=== PATIENT | male | born 1935 | race Caucasian/White ===

== ENCOUNTER → 2017-03-11 | Outpatient (CLI) | payer MEDICARE, OTHER | END | disposition home or self-care (01) | LOC: GMAB 10:28 | PROVIDERS: ATTEND Family Medicine | DX: R97.20 Elevated prostate specific antigen [PSA] (principal); Z85.038 Personal history of other malignant neoplasm of large intestine; Z12.5 Encounter for screening for malignant neoplasm of prostate; I10 Essential (primary) hypertension ==

== ENCOUNTER 2017-04-24 11:53 | Emergency (ER) | payer MEDICARE, OTHER ==
[2017-04-24] MEDS ORDERED: SODIUM CHLORIDE 0.9% 1000ML 1,000 ML IVS ONE (12:40)
--- NOTE | 2017-04-24 12:44 | RAD ---
EXAM DESCRIPTION: Chest,1 View CLINICAL HISTORY: 82-year-old, male, shortness of breath. COMPARISON: Chest radiograph dated May 30, 2013. IMPRESSION: Single upright portable frontal view of the chest. Cardiac silhouette and pulmonary vascularity are within normal limits. Subtle linear opacities within the bilateral lower lung zones are likely secondary to subsegmental atelectasis. Underlying infiltrates cannot be entirely excluded, although felt less likely. Please correlate clinically. No pleural effusion. No pneumothorax. No acute osseous abnormality. Electronically signed by: Juaquin Prado MD 04/24/2017 12:43 PM CDT
--- NOTE | 2017-04-24 13:42 | ED.PDOC ---
History of Present Illness - General Chief Complaint: Cardiovascular Problem Stated Complaint: SOB, diaphoresis, weakness Time Seen by Provider: 04/24/17 12:25 Source: patient Exam Limitations: no limitations - History of Present Illness Initial Comments: Isaak Gutierres 82 y/o male stated that he had right knee replacement 2 weeks ago and had been doing home health Physical Therapy but on getting up this morning walking 4 steps with his walker got so tired and developed chest pressure had cold sweats and was lightheaded.DENIES CHEST PAIN SYMPTOMS. Timing/Duration: 4-6 hours Severity: moderate Improving Factors: rest Worsening Factors: movement Associated Symptoms: other - see hpi Allergies/Adverse Reactions: Allergies NO KNOWN ALLERGY Allergy (Verified 04/24/17 12:13) Home Medications: Ambulatory Orders B-Complex W/ Folic Acid [B Complex] 1 tab PO DAILY 04/24/17 Enalapril Maleate 5 mg PO DAILY 04/24/17 Endur-Acin 500 mg PO BID 04/24/17 Metoprolol Tartrate 12.5 mg PO BID 04/24/17 Multiple Vitamins W/ Minerals [Multivitamin Men] 1 tab PO DAILY 04/24/17 Phytosterol 900 mg PO DAILY 04/24/17 Tamsulosin [Flomax] 0.4 mg PO DAILY 04/24/17 Review of Systems - Review of Systems Constitutional: States: no symptoms reported EENTM: States: no symptoms reported Respiratory: States: no symptoms reported Cardiology: States: see HPI Gastrointestinal/Abdominal: States: no symptoms reported Genitourinary: States: no symptoms reported Musculoskeletal: States: see HPI Skin: States: no symptoms reported Past Medical History (General) - Patient Medical History Hx Stroke: No Hx Cardiac Disorders: Yes - [place] 1998 Hx Congestive Heart Failure: No Hx Diabetes: No Hx Cancer: Yes - Colon Surgical History: cholecystectomy, colectomy, other - recent knee surgery,right wrist,nose - Vaccination History Hx Influenza Vaccination: Yes - 2016 Hx Pneumococcal Vaccination: - unknown - Social History Hx Tobacco Use: Yes - Quit 1986 Hx Physical Abuse: No Hx Emotional Abuse: No Hx Suspected Abuse: No - Activities of Daily Living Grooming Ability: Independent Eating (Feeding) Ability: Independent Toileting Ability: Independent Family Medical History - Family History Father Living Status: Cause of : Colon CA Hx Family Diabetes: Yes - mom Hx Family Cancer: Yes - Colon Physical Exam - Physical Exam General Appearance: Alert, No apparent distress Eye Exam: bilateral normal Ears, Nose, Throat: hearing grossly normal, normal ENT inspection Neck: non-tender, full range of motion, supple Respiratory: chest non-tender, lungs clear, normal breath sounds Cardiovascular/Chest: normal peripheral pulses, regular rate, rhythm, no murmur Peripheral Pulses: radial,right: 2+, radial,left: 2+ Gastrointestinal/Abdominal: normal bowel sounds, non tender, soft, no organomegaly Back Exam: no CVA tenderness, no vertebral tenderness Extremity: other - well healed scar right knee with old ecchymosis post op Neurologic: no motor/sensory deficits, alert, normal mood/affect, oriented x 3, other - no pronator drift,speech fluent Skin Exam: normal color, warm/dry Lymphatic: no adenopathy Progress - Progress Progress: 04/24/17 13:46 Vital Signs - 8 hr 04/24/17 04/24/17 04/24/17 11:57 12:23 12:43 Temperature 97.4 F L Pulse Rate [ 68 68 59 L Apical] Respiratory 22 18 20 Rate Blood Pressure 140/51 86/48 83/40 [Left Arm] O2 Sat by Pulse 99 98 99 Oximetry 04/24/17 13:15 Temperature Pulse Rate [ 65 Apical] Respiratory 20 Rate Blood Pressure 93/46 [Left Arm] O2 Sat by Pulse 97 Oximetry - Results/Orders Results/Orders: Laboratory Tests 04/24/17 04/24/17 04/24/17 11:47 11:47 11:47 WBC 11.6 H RBC 2.87 L Hgb 9.5 L Hct 27.9 L MCV 97.5 H MCH 33.1 H MCHC 34.0 RDW 15.0 H Plt Count 367 MPV 8.8 Absolute Neuts (auto) 7.00 H Absolute Lymphs (auto) 3.30 Absolute Monos (auto) 1.20 H Absolute Eos (auto) 0.10 Absolute Basos (auto) 0.10 Neutrophils % 60.5 Lymphocytes % 28.5 Monocytes % 9.9 H Eosinophils % 0.6 L Basophils % 0.5 Normal RBC Morphology PT 12.5 INR 1.110 PTT (SP) 21.6 L D-Dimer, Quantitative 1326 H* pCO2 pO2 HCO3 ABG pH ABG O2 Saturation ABG Base Excess ABG Deoxyhemoglobin Oxyhemoglobin % Carboxyhemoglobin % Methemoglobin % Sat Calc Total Hemoglobin Sodium 131 L Potassium 4.3 Chloride 100 L Carbon Dioxide 19 L Anion Gap 16.3 BUN 39 H Creatinine 1.31 H BUN/Creatinine Ratio 29.8 H Random Glucose 228 H Serum Osmolality 279.3 Calcium 8.4 Magnesium 1.8 Creatine Kinase 24 L CK-MB (CK-2) 2.1 CK-MB (CK-2) % Not Reportable Troponin I 0.02 B-Natriuretic Peptide 30.2 04/24/17 04/24/17 13:05 14:47 WBC RBC Hgb Hct MCV MCH MCHC RDW Plt Count MPV Absolute Neuts (auto) Absolute Lymphs (auto) Absolute Monos (auto) Absolute Eos (auto) Absolute Basos (auto) Neutrophils % Lymphocytes % Monocytes % Eosinophils % Basophils % Normal RBC Morphology PT INR PTT (SP) D-Dimer, Quantitative pCO2 29 L pO2 84 HCO3 18.1 ABG pH 7.410 ABG O2 Saturation 97.8 ABG Base Excess -5.3 ABG Deoxyhemoglobin 2.1 Oxyhemoglobin % 94.9 Carboxyhemoglobin % 1.2 Methemoglobin % Sat 1.7 H Calc Total Hemoglobin 7.7 L Sodium Potassium Chloride Carbon Dioxide Anion Gap BUN Creatinine BUN/Creatinine Ratio Random Glucose Serum Osmolality Calcium Magnesium Creatine Kinase 25 L CK-MB (CK-2) 2.1 CK-MB (CK-2) % Not Reportable Troponin I 0.02 B-Natriuretic Peptide - EKG/XRAY/CT EKG: Sinus Comments: heart rate71 pvc XRAY: chest - atelectasis,copd changes CT Ordered: Yes - CTA-Chest-=no pulmonary embolus Departure - Departure Clinical Impression: Light-headedness, Complaint of debility and malaise, History of knee replacement procedure of right knee, Elevated d-dimer Anemia Qualifiers: Anemia type: other cause Other causes of anemia: acute posthemorrhagic Qualified Code(s): D62 - Acute posthemorrhagic anemia Time of Disposition: 15:59 Disposition: Discharge to Home or Self Care Condition: Fair Departure Forms: ED Discharge - Pt. Copy, Patient Portal Self Enrollment Instructions: Anemia: How Food and Vitamins Can Help, Anemia, DI for Iron Deficiency Anemia-Adult Referrals: Julius Bowling MD [Primary Care Provider] - 1-2 Weeks Home Medications: Ambulatory Orders B-Complex W/ Folic Acid [B Complex] 1 tab PO DAILY 04/24/17 Enalapril Maleate 5 mg PO DAILY 04/24/17 Endur-Acin 500 mg PO BID 04/24/17 Metoprolol Tartrate 12.5 mg PO BID 04/24/17 Multiple Vitamins W/ Minerals [Multivitamin Men] 1 tab PO DAILY 04/24/17 Phytosterol 900 mg PO DAILY 04/24/17 Tamsulosin [Flomax] 0.4 mg PO DAILY 04/24/17 Additional Instructions: RETURN TO EMERGENCY ROOM NEEDED;CONTINUE WITH ALL HOME MEDICATIONS
--- NOTE | 2017-04-24 14:12 | CT ---
EXAM DESCRIPTION: CTA Chest CLINICAL HISTORY: elevated d dimer/recent knee surgery right chest pain, shortness of breath COMPARISON: June 16, 2013 TECHNIQUE: Postcontrast CT images of the chest are obtained using pulmonary embolism imaging protocol. Three-D MIP reconstructed images of the arterial vasculature are obtained. Coronal and sagittal reconstructed images of the also provided. . This exam was performed according to our departmental dose-optimization program, which includes automated exposure control, adjustment of the mA and/or kV according to patient size and/or use of iterative reconstruction technique . FINDINGS: The heart is enlarged. Severe coronary artery calcifications are again seen with mild calcifications of the aortic and mitral valve angles. No filling defects or emboli are seen in the pulmonary arteries. Moderate elongation and tortuosity the thoracic aorta is seen without aneurysmal dilatation. No pathologically enlarged mediastinal, hilar, or axillary lymphadenopathy seen. No pleural or pericardial effusion is seen. Stable 2.2 cm cyst of the left lobe liver. Lungs are hypoaerated. Moderate centrilobular and paraseptal emphysematous changes to the lungs are seen most pronounced in the upper lobes. Calcified pulmonary nodules are seen bilaterally. Crowding of the bronchovascular markings in the lung bases are seen. No focal consolidation is appreciated. Osseous structures show degenerative changes of the spine. IMPRESSION: No radiographic evidence of pulmonary embolism. Exam is limited by poor inspiratory effort and breathing motion artifact degrading evaluation of the mid to distal branches of the pulmonary arteries in the lower lobes. Moderate emphysematous changes to the lungs are seen most pronounced in the upper lobes. Enlarged heart. Severe coronary artery disease. Electronically signed by: Cisco Colmenares MD 04/24/2017 2:10 PM CDT
[2017-04-24 15:49] VITALS: BP 100/54; O2SAT 97
[2017-04-24 17:17] VITALS: TEMP 98.2
== END 2017-04-24 16:05 | disposition home or self-care (01) ==
LOC: ER 11:53
DX: D62 Acute posthemorrhagic anemia (principal); R42 Dizziness and giddiness; R54 Age-related physical debility; Z96.651 Presence of right artificial knee joint; R79.89 Other specified abnormal findings of blood chemistry; I25.2 Old myocardial infarction; Z85.038 Personal history of other malignant neoplasm of large intestine; Z87.891 Personal history of nicotine dependence
CPT/HCPCS: 36415; 36600; 71010; 71275; 80048; 82550; 82553; 82803; 82805; 83880; 84484; 85025; 85379; 85610; 85730; 93005; J7030

== ENCOUNTER 2017-04-26 08:24 | Emergency (ER) | payer MEDICARE, OTHER ==
[2017-04-26] MEDS ORDERED: SODIUM CHLORIDE 0.9% 1000ML 1,000 ML IVS ONE (08:31)
--- NOTE | 2017-04-26 09:03 | ED.PDOC ---
History of Present Illness - General Chief Complaint: Cardiovascular Problem Stated Complaint: Syncope, weakness, dark tarry stools Time Seen by Provider: 04/26/17 08:30 Source: patient, RN notes reviewed, Vital Signs reviewed, EMS Exam Limitations: no limitations - History of Present Illness Initial Comments: Patient presents to ER via EMS after a syncopal episode @ home. He has been feeling weak and dizzy since 04/23/17. He was seen here in ER on 04/24 w/o obvious cause found. He did have knee surgery ~ 2 weeks ago. Yesterday morning he had a black, tarry stool. That has continued. This morning he got up to go to the restroom and passed out. EMS arrived and stood him up and he promptly passed out again. He is concerned he is bleeding internally. His last colonoscopy was earlier this year. He had a polyp removed and was advised to follow up in 3 years. Timing/Duration: getting worse - over past 4 days Severity: severe Improving Factors: rest Worsening Factors: movement Associated Symptoms: diaphoresis, malaise, shortness of breath, syncope, weakness Allergies/Adverse Reactions: Allergies NO KNOWN ALLERGY Allergy (Verified 04/26/17 08:31) Home Medications: Ambulatory Orders B-Complex W/ Folic Acid [B Complex] 1 tab PO DAILY 04/24/17 Enalapril Maleate 5 mg PO DAILY 04/24/17 Endur-Acin 500 mg PO BID 04/24/17 Metoprolol Tartrate 12.5 mg PO BID 04/24/17 Multiple Vitamins W/ Minerals [Multivitamin Men] 1 tab PO DAILY 04/24/17 Phytosterol 900 mg PO DAILY 04/24/17 Tamsulosin [Flomax] 0.4 mg PO DAILY 04/24/17 Review of Systems - Review of Systems Constitutional: States: see HPI, diaphoresis, malaise, weakness EENTM: States: no symptoms reported Respiratory: States: short of breath Cardiology: States: syncope Gastrointestinal/Abdominal: States: see HPI, constipation, other - Dark, tarry stools. Denies: abdominal pain, nausea, vomiting Musculoskeletal: States: no symptoms reported Skin: States: no symptoms reported Neurological: States: no symptoms reported All other Systems: No Change from Baseline Past Medical History (General) - Patient Medical History Hx Stroke: No Hx Cardiac Disorders: Yes - [place] 1998 Hx Congestive Heart Failure: No Hx Diabetes: No Hx Cancer: Yes - Colon Hx MRSA: No Surgical History: cholecystectomy, colectomy, other - Vaccination History Hx Influenza Vaccination: Yes - 2016 Hx Pneumococcal Vaccination: - unknown - Social History Hx Tobacco Use: Yes - Quit 1986 Hx Physical Abuse: No Hx Emotional Abuse: No Hx Suspected Abuse: No Family Medical History - Family History Father Living Status: Cause of : Colon CA Hx Family Diabetes: Yes - mom Hx Family Cancer: Yes - Colon Physical Exam - Physical Exam General Appearance: Alert, Comfortable, Frail, No apparent distress, Lethargic, Ill Appearing, Well Developed, Well Nourished Ears, Nose, Throat: other - Dry & pale mucous membranes Neck: non-tender, full range of motion, supple, normal inspection Respiratory: lungs clear, normal breath sounds, no respiratory distress, no accessory muscle use Cardiovascular/Chest: normal peripheral pulses, regular rate, rhythm, no edema, no gallop, no murmur Peripheral Pulses: radial,right: 2+, radial,left: 2+, dorsalis pedis,right: 2+, dorsalis pedis,left: 2+ Gastrointestinal/Abdominal: non tender, soft, no organomegaly, abnormal bowel sounds - Hyperactive Rectal Exam: normal rectal tone, black stool, heme positive stool Extremity: normal inspection - except bruising on his R leg Neurologic: no motor/sensory deficits, alert, normal mood/affect, oriented x 3 Skin Exam: pallor Comments: Vital Signs 04/26/17 08:31 Temperature 97.0 F L Pulse Rate [ 56 L Left Radial] Respiratory 22 Rate Blood Pressure 86/59 [Left Arm] O2 Sat by Pulse 98 Oximetry Progress - Progress Progress: 04/26/17 10:24 Patient with anemia with GI bleed. Will give 2U of PRBC's and transfer to [facility] in [place]. - Results/Orders Results/Orders: Laboratory Tests 04/26/17 04/26/17 04/26/17 08:36 08:36 08:36 WBC 11.6 H RBC 1.77 L Hgb 5.9 L* Hct 17.6 L MCV 99.5 H MCH 33.3 H MCHC 33.6 RDW 15.6 H Plt Count 264 MPV 8.2 Absolute Neuts (auto) 8.40 H Absolute Lymphs (auto) 2.30 Absolute Monos (auto) 0.80 Absolute Eos (auto) 0.00 Absolute Basos (auto) 0.00 Neutrophils % 72.5 Lymphocytes % 19.9 L Monocytes % 7.1 Eosinophils % 0.2 L Basophils % 0.3 PT INR PTT (SP) D-Dimer, Quantitative 1739 H* Sodium 134 L Potassium 4.2 Chloride 107 Carbon Dioxide 19 L Anion Gap 12.2 BUN 46 H Creatinine 1.32 H BUN/Creatinine Ratio 34.8 H Random Glucose 157 H D Serum Osmolality 283.4 Calcium 8.1 L Total Bilirubin 0.7 AST 37 ALT 47 Alkaline Phosphatase 84 Creatine Kinase 27 L CK-MB (CK-2) 2.3 CK-MB (CK-2) % Not Reportable Troponin I 0.03 Serum Total Protein 5.3 L Albumin 2.7 L Globulin 2.6 Albumin/Globulin Ratio 1.0 L Stool Occult Blood Patient ABO/Rh Antibody Screen Crossmatch 04/26/17 04/26/17 04/26/17 08:45 09:08 09:10 WBC RBC Hgb Hct MCV MCH MCHC RDW Plt Count MPV Absolute Neuts (auto) Absolute Lymphs (auto) Absolute Monos (auto) Absolute Eos (auto) Absolute Basos (auto) Neutrophils % Lymphocytes % Monocytes % Eosinophils % Basophils % PT 12.6 H INR 1.120 PTT (SP) 19.8 L D-Dimer, Quantitative Sodium Potassium Chloride Carbon Dioxide Anion Gap BUN Creatinine BUN/Creatinine Ratio Random Glucose Serum Osmolality Calcium Total Bilirubin AST ALT Alkaline Phosphatase Creatine Kinase CK-MB (CK-2) CK-MB (CK-2) % Troponin I Serum Total Protein Albumin Globulin Albumin/Globulin Ratio Stool Occult Blood Positive Patient ABO/Rh A NEGATIVE Antibody Screen Negative Crossmatch See Detail - EKG/XRAY/CT EKG: Sinus, nonspecific ST T wave Chg, Unchanged from - 04/24/17 Comments: occ PVC's, Rate 85 Departure - Departure Clinical Impression: Anemia due to acute blood loss, History of knee replacement procedure of right knee, Elevated d-dimer Gastrointestinal bleeding Qualifiers: GI bleed type/associated pathology: melena Qualified Code(s): K92.1 - Melena Time of Disposition: 10:45 Disposition: Transfer to Hospital Condition: Poor Departure Forms: ED Discharge - Pt. Copy, Patient Portal Self Enrollment Referrals: Julius Bowling MD [Primary Care Provider] - 1-2 Weeks Home Medications: Ambulatory Orders B-Complex W/ Folic Acid [B Complex] 1 tab PO DAILY 04/24/17 Enalapril Maleate 5 mg PO DAILY 04/24/17 Endur-Acin 500 mg PO BID 04/24/17 Metoprolol Tartrate 12.5 mg PO BID 04/24/17 Multiple Vitamins W/ Minerals [Multivitamin Men] 1 tab PO DAILY 04/24/17 Phytosterol 900 mg PO DAILY 04/24/17 Tamsulosin [Flomax] 0.4 mg PO DAILY 04/24/17 Transfer to Outside Facility - Transfer Information Accepting Provider:: Dr. Gunn Accepting Facility: [facility] Reason for Transfer: required specialist not available
[2017-04-26] MEDS ORDERED: SODIUM CHLORIDE 0.9% 250ML 250 ML ONE (10:14)
[2017-04-26 11:35] VITALS: BP 118/65; TEMP 98.6; O2SAT 97
== END 2017-04-26 11:25 | disposition short-term general hospital (02) ==
LOC: ER 08:24
DX: D62 Acute posthemorrhagic anemia (principal); K92.1 Melena; R79.89 Other specified abnormal findings of blood chemistry; I25.2 Old myocardial infarction; Z96.651 Presence of right artificial knee joint; Z79.899 Other long term (current) drug therapy; Z85.038 Personal history of other malignant neoplasm of large intestine; Z87.891 Personal history of nicotine dependence
CPT/HCPCS: 36415; 80053; 82270; 82550; 82553; 84484; 85025; 85379; 85610; 85730; 86850; 86900; 86901; 86922; 93005; J7030; J7050; P9016

== ENCOUNTER 2017-05-04 17:04 | Inpatient (IN) | payer MEDICARE, OTHER ==
--- NOTE | 2017-05-04 17:08 | HP ---
SUPERVISING PHYSICIAN: Armando Lebron MD REASON FOR SWING BED ADMISSION: strengthening and reconditioning. HISTORY OF PRESENT ILLNESS: Mr. Gutierres is an 82-year-old, male patient who had knee replacement completed approximately 3 weeks ago at [facility] by Dr. Martino. He was doing well with his therapy. He was on Xarelto per DVT protocol as well as high dose aspirin. He started having some dizziness and presented to the Emergency Department initially at [place] on 04/23/17 and was given some fluids for dehydration and it was his hemoglobin and hematocrit were 9.5 and 27.9. He went home and then presented back to the Emergency Room on when he started having some black, tarry stools and had a syncopal episode at home. On arrival to the Emergency Department on 04/24/17, it was he was severely anemic with a hemoglobin 5.9 and hematocrit 17.6. He was emergently transfused 2 units of packed red blood cells and transferred to [facility] on 04/26/17. There, he was treated for a gastrointestinal bleed with a GI consultation and was found to have peptic ulcer disease with a severe duodenitis. He also had an echocardiogram showed an ejection fraction of 50% to 55%. He was treated for acute symptomatic blood loss and anemia and started on Protonix and continued with physical therapy. While at [facility], he had an apparent syncopal episode and at that time, neurology service was consulted as he became incontinent. He was diagnosed with a complex partial seizure. He had an MRI of the brain that was completed that showed a punctate foci of acute infarct in the posteromedial aspect of the left temporal lobe and additional smaller foci of acute infarct in the posterior aspect of the right temporal lobe with consideration of possible embolic etiology, however, no embolic source was noted on echocardiogram. He was followed by Dr. Aguero, neurology, and started on Keppra and has improved and had no more seizure activity. His hemoglobin and hematocrit had stabilized. His last hemoglobin was 8.8 and hematocrit 25.6 on 04/30/17. [facility] requested that the patient be placed in Swing Bed as he was now stable for strengthening and reconditioning and ongoing physical therapy. The patient was accepted into Swing Bed on 05/04/17. He was in stable condition. PAST MEDICAL HISTORY: 1. Coronary artery disease. 2. 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 Aguero. 3. Recent history of gastrointestinal bleed secondary to a severe duodenitis from chronic peptic ulcer disease compounded by high dose aspirin and recent postoperative Xarelto requiring transfusion of multiple units of packed red blood cells, stable, requiring ongoing management, close monitoring and ongoing physical therapy for reconditioning. 4. Obstructive sleep apnea. 5. Recent right total knee arthroplasty in the last 3 weeks, performed by Dr. Martino at [facility], requiring ongoing physical therapy. 6. History of colon cancer diagnosed in 2011. PAST SURGICAL HISTORY: 1. Recent right total knee arthroplasty. 2. Tonsillectomy and adenoidectomy. 3. Cholecystectomy in 2007. 4. Colon resection in 2002. 5. Coronary artery stent placement. HOME MEDICATIONS: 1. Multivitamin with minerals 1 daily. 2. Vitamin B complex 1 daily. 3. Slow-Mag 0.4 mg daily. 4. Phytosterol Esters 1 tablet twice daily. 5. Niacin ER 500 mg twice daily. 6. Metoprolol 12.5 mg daily. 7. Fergon 325 mg 3 times daily. 8. Enalapril 5 mg daily. 9. Calcium with magnesium 2 tablets daily. ALLERGIES: NO KNOWN DRUG ALLERGIES. FAMILY HISTORY: Father at age 73 secondary to colon cancer. Mother secondary to complications from diabetes. 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 He went to [employer]. 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 He has worked for [employer] in [place]. He is . He smoked tobacco, but quit in 1998. He drinks only on a social basis. REVIEW OF SYSTEMS: Twelve-point review of systems completed. No complaints except for some general malaise and deconditioning as noted in history of present illness. PHYSICAL EXAMINATION: VITAL SIGNS: Temperature 97.6. Pulse 65. Blood pressure 108/74. Respirations 17. Saturation 96% on room air. Admission weight 92.9 kg. GENERAL: The patient appears to be in no acute distress. He is well-hydrated and well-nourished. He is alert and oriented. CHEST: Lungs clear to auscultation bilaterally without any rhonchi, wheezes, or rales. CARDIOVASCULAR: Regular rate and rhythm without any appreciable murmurs, gallops, or rubs. ABDOMEN: Soft, nontender. Positive bowel sounds. EXTREMITIES: There is no cyanosis, clubbing or edema. Right knee has Steri- Strips in place with the surgical incision over the right knee clean and dry healing without signs of infection. Distally, pulses are strong with capillary refill brisk. NEUROLOGIC: The patient is alert and oriented times three. Cranial nerves II- XII are grossly intact. Facial features are symmetrical. Extraocular movements are within normal limits. There is no nystagmus noted. There are no notable neurological deficits. LABORATORY: CBC pending. CMP pending. Urinalysis pending. ASSESSMENT: 1. Recent hospitalization for a gastrointestinal bleed secondary to peptic ulcer disease from severe duodenitis complicated by aspirin and postoperative Xarelto with the patient requiring multiple blood transfusions, now stable with the patient having severe deconditioning requiring admission to Swing Bed for ongoing rehabilitation and reconditioning. 2. History of recent seizure diagnosis with complex partial seizure activity with MRI of the braining showing past infarcts and questionable embolic event with echocardiogram performed at [facility] showing no evidence of embolic source with ejection fraction noted to be 50% to 55% with the patient having been started on Keppra. 3. Recent right total knee arthroplasty performed by Dr. Martino at [facility] approximately 3 weeks previously, requiring ongoing physical therapy and rehabilitation. 4. History of coronary artery disease. 5. History of renal stones. PLAN: The patient will be admitted to Swing Bed for ongoing physical therapy and rehabilitation for severe deconditioning secondary to extensive hospitalization and previous gastrointestinal bleed. We will review his home medications and resume those as appropriate. He was on Keppra IV in the hospital. We need to followup and see what medication was prescribed at discharge. We will plan to repeat a CBC and CMP in the morning to get baseline laboratory values. We will anticipate length of stay to be at least 3 to 5 days. We will continue to follow the patient as he progresses through his physical therapy and rehabilitation efforts. Once physical therapy feels he has met his expected goals, we will discharge as appropriate with arrangements to be made in ongoing days with Social Service consultation with Klaudia. Until discharge, we will continue to monitor the patient closely and treat appropriately. #[id number] [facility]
[2017-05-04] MEDS ORDERED: SODIUM PHOS/BIPHOS ENEMA ADULT 133 ML BTTL PR PRN (17:44)
[2017-05-04] MEDS ORDERED: MAGNESIUM HYDROXIDE 30 ML UD PO PRN (17:44)
[2017-05-04] MEDS ORDERED: ACETAMINOPHEN 500 MG TAB PO PRN (17:44)
--- NOTE | 2017-05-04 20:11 | PCM.CORE ---
Physician DVT/VTE - Contraindications Medication Contraindication: Medical Contraindication - past GI bleed - Nurse DVT Assessment & Total Each Risk Factor Represents 5 Points: Stroke < 1 month Each Risk Factor Represents 3 Points: Age over 75 years, Medical PT with Hx of RI, CHF, Severe infection/sepsis Each Risk Factor is 1 Point: Obesity (BMI >25) DVT Assessment Score: 12 - 5 or more Very High Risk Treatments: Early Ambulation *, Sequential Compression Device
[2017-05-04] MEDS: NIACIN ER 500 MG TAB PO SCH (20:36)
[2017-05-04] MEDS: TAMSULOSIN 0.4 MG CAP PO SCH (20:36)
[2017-05-04] MEDS ORDERED: FERROUS GLUCONATE 325 MG TAB PO SCH (21:00)
[2017-05-04] MEDS: [UNRECOGNIZED DRUG - OTHER] PO SCH (21:22)
[2017-05-05] MEDS: DOCUSATE SODIUM 100 MG CAP PO SCH (08:10)
[2017-05-05] MEDS: TAMSULOSIN 0.4 MG CAP PO SCH ×2 (08:10→09:11)
[2017-05-05] MEDS: NIACIN ER 500 MG TAB PO SCH ×2 (08:11→21:07)
[2017-05-05] MEDS: ENALAPRIL MALEATE 5 MG TAB PO SCH (08:11)
[2017-05-05] MEDS ORDERED: CALCIUM PO SCH (09:00)
[2017-05-05] MEDS ORDERED: MAGNESIUM PO SCH (09:00)
[2017-05-05] MEDS ORDERED: METOPROLOL TARTRATE 25 MG TAB PO SCH (09:00)
[2017-05-05] MEDS ORDERED: [UNRECOGNIZED DRUG - OTHER] PO SCH (09:00)
[2017-05-05] MEDS: B COMPLEX 1 EA TAB PO SCH (09:18)
[2017-05-05] MEDS: MULTIPLE VITAMINS W/ MINERALS 1 EA TAB PO SCH (09:18)
[2017-05-05] MEDS: [UNRECOGNIZED DRUG - OTHER] PO SCH ×2 (09:19→21:09)
[2017-05-05] MEDS: FERROUS GLUCONATE 325 MG TAB PO SCH ×2 (11:44→17:41)
[2017-05-05] MEDS ORDERED: METOPROLOL TARTRATE 25 MG TAB ONE (20:11)
[2017-05-05] MEDS ORDERED: ONDANSETRON 4 MG TAB ONE (20:11)
[2017-05-05] MEDS ORDERED: FERROUS SULFATE 325 MG TAB ONE (20:56)
[2017-05-05] MEDS ORDERED: levETIRAcetam 250 MG TAB ONE (21:13)
[2017-05-05] MEDS ORDERED: NON-FORMULARY MEDICATION 1 EA MIS (Levetiracetam [Keppra] 500 MG) PO SCH (21:15)
[2017-05-06] MEDS ORDERED: CALCIUM CARBONATE-VITAMIN D 500 MG TAB ONE (07:37)
[2017-05-06] MEDS ORDERED: levETIRAcetam 250 MG TAB ONE (07:37)
[2017-05-06] MEDS: METOPROLOL TARTRATE 25 MG TAB PO SCH (07:47)
[2017-05-06] MEDS: FERROUS GLUCONATE 325 MG TAB PO SCH ×3 (07:47→17:34)
[2017-05-06] MEDS ORDERED: CALCIUM CARBONATE-VITAMIN D 500 MG TAB PO SCH (09:00)
[2017-05-06] MEDS: NIACIN ER 500 MG TAB PO SCH ×2 (09:12→21:18)
[2017-05-06] MEDS: MULTIPLE VITAMINS W/ MINERALS 1 EA TAB PO SCH (09:12)
[2017-05-06] MEDS: TAMSULOSIN 0.4 MG CAP PO SCH (09:12)
[2017-05-06] MEDS: DOCUSATE SODIUM 100 MG CAP PO SCH (09:12)
[2017-05-06] MEDS: B COMPLEX 1 EA TAB PO SCH (09:12)
[2017-05-06] MEDS: ENALAPRIL MALEATE 5 MG TAB PO SCH (09:12)
[2017-05-06] MEDS: levETIRAcetam 250 MG TAB PO SCH ×2 (09:13→21:18)
[2017-05-06] MEDS: [UNRECOGNIZED DRUG - OTHER] PO SCH ×2 (09:17→21:18)
[2017-05-07] MEDS: FERROUS GLUCONATE 325 MG TAB PO SCH ×3 (08:37→17:39)
[2017-05-07] MEDS: METOPROLOL TARTRATE 25 MG TAB PO SCH (08:37)
[2017-05-07] MEDS: MULTIPLE VITAMINS W/ MINERALS 1 EA TAB PO SCH (09:21)
[2017-05-07] MEDS: ENALAPRIL MALEATE 5 MG TAB PO SCH (09:21)
[2017-05-07] MEDS: TAMSULOSIN 0.4 MG CAP PO SCH (09:21)
[2017-05-07] MEDS: DOCUSATE SODIUM 100 MG CAP PO SCH (09:21)
[2017-05-07] MEDS: B COMPLEX 1 EA TAB PO SCH (09:21)
[2017-05-07] MEDS: NIACIN ER 500 MG TAB PO SCH ×2 (09:22→20:30)
[2017-05-07] MEDS: levETIRAcetam 250 MG TAB PO SCH ×2 (09:22→20:30)
[2017-05-07] MEDS: NON-FORMULARY MEDICATION 1 EA MIS PO SCH (09:23)
[2017-05-07] MEDS: [UNRECOGNIZED DRUG - OTHER] PO SCH ×2 (09:24→20:50)
[2017-05-08] MEDS: TAMSULOSIN 0.4 MG CAP PO SCH (08:23)
[2017-05-08] MEDS: levETIRAcetam 250 MG TAB PO SCH ×2 (08:23→20:49)
[2017-05-08] MEDS: METOPROLOL TARTRATE 25 MG TAB PO SCH (08:23)
[2017-05-08] MEDS: DOCUSATE SODIUM 100 MG CAP PO SCH (08:23)
[2017-05-08] MEDS: MULTIPLE VITAMINS W/ MINERALS 1 EA TAB PO SCH (08:23)
[2017-05-08] MEDS: ENALAPRIL MALEATE 5 MG TAB PO SCH (08:24)
[2017-05-08] MEDS: FERROUS GLUCONATE 325 MG TAB PO SCH ×3 (08:24→17:25)
[2017-05-08] MEDS: B COMPLEX 1 EA TAB PO SCH (08:24)
[2017-05-08] MEDS: NIACIN ER 500 MG TAB PO SCH ×2 (08:24→20:49)
[2017-05-08] MEDS: NON-FORMULARY MEDICATION 1 EA MIS PO SCH (08:26)
[2017-05-08] MEDS: [UNRECOGNIZED DRUG - OTHER] PO SCH ×2 (08:56→20:49)
[2017-05-09] MEDS: FERROUS GLUCONATE 325 MG TAB PO SCH ×3 (07:47→17:05)
[2017-05-09] MEDS: METOPROLOL TARTRATE 25 MG TAB PO SCH (07:47)
[2017-05-09] MEDS: TAMSULOSIN 0.4 MG CAP PO SCH (09:18)
[2017-05-09] MEDS: MULTIPLE VITAMINS W/ MINERALS 1 EA TAB PO SCH (09:18)
[2017-05-09] MEDS: NIACIN ER 500 MG TAB PO SCH ×2 (09:18→20:51)
[2017-05-09] MEDS: NON-FORMULARY MEDICATION 1 EA MIS PO SCH (09:18)
[2017-05-09] MEDS: levETIRAcetam 250 MG TAB PO SCH ×2 (09:18→20:51)
[2017-05-09] MEDS: ENALAPRIL MALEATE 5 MG TAB PO SCH (09:18)
[2017-05-09] MEDS: B COMPLEX 1 EA TAB PO SCH (09:18)
[2017-05-09] MEDS: DOCUSATE SODIUM 100 MG CAP PO SCH (09:27)
[2017-05-09] MEDS: [UNRECOGNIZED DRUG - OTHER] PO SCH ×2 (09:27→20:53)
--- NOTE | 2017-05-09 14:38 | PN ---
DATE: 05/09/17 SUPERVISING PHYSICIAN: Armando Lebron M.D. SUBJECTIVE: The patient is sitting up in his chair in his hospital room. He is eating his lunch. He has no complaints of shortness of breath, nausea, vomiting, diarrhea or constipation. He agrees to the plan of discharge on Thursday. OBJECTIVE: VITAL SIGNS: He is afebrile, heart rate 68, blood pressure 105/67, respiratory rate 18, O2 sat is 96% on room air. RESPIRATORY: Clear to auscultation bilaterally. CARDIAC: Regular rate and rhythm. ABDOMEN: Soft, nondistended, non-tender. Bowel sounds are positive. NEUROLOGIC: He is awake, alert and oriented times three. LABORATORY: There are no labs or films to report at this time. ASSESSMENT: 1. Recent hospitalization for a gastrointestinal bleed secondary to peptic ulcer disease from severe duodenitis complicated by aspirin and postoperative Xarelto with the patient requiring multiple blood transfusions, now stable with the patient having severe deconditioning requiring admission to Swing Bed for ongoing rehabilitation and reconditioning. 2. History of recent seizure diagnosis with complex partial seizure activity with MRI of the brain showing past infarcts and questionable embolic event with echocardiogram performed at [facility] showing no evidence of embolic source with ejection fraction noted to be 50% to 55% with the patient having been started on Keppra. 3. Recent right total knee arthroplasty performed by Dr. Martino at [facility] approximately 3 weeks previously, requiring ongoing physical therapy and rehabilitation. 4. History of coronary artery disease. 5. History of renal stones. PLAN: We will continue present supportive care. He will continue with his physical therapy for strengthening and conditioning. I will do a CBC on Thursday morning prior to discharge. He will need followup with Dr. Bowling. I have spoken to Dr. Bowling and he will need to followup with Dr. Aguero for neurology as well as followup for an EEG at some point per Dr. Aguero's recommendation. He will also most likely need a followup with his GI doctor in [place]. Otherwise we will continue to monitor the patient closely and follow as needed. Dr. Lebron is the collaborating physician available for consultation. #[id number] [facility]
[2017-05-10] MEDS: METOPROLOL TARTRATE 25 MG TAB PO SCH (07:45)
[2017-05-10] MEDS: FERROUS GLUCONATE 325 MG TAB PO SCH ×3 (07:45→16:59)
[2017-05-10] MEDS: ENALAPRIL MALEATE 5 MG TAB PO SCH (09:13)
[2017-05-10] MEDS: B COMPLEX 1 EA TAB PO SCH (09:13)
[2017-05-10] MEDS: DOCUSATE SODIUM 100 MG CAP PO SCH (09:13)
[2017-05-10] MEDS: NON-FORMULARY MEDICATION 1 EA MIS PO SCH (09:13)
[2017-05-10] MEDS: levETIRAcetam 250 MG TAB PO SCH ×2 (09:13→20:49)
[2017-05-10] MEDS: MULTIPLE VITAMINS W/ MINERALS 1 EA TAB PO SCH (09:13)
[2017-05-10] MEDS: NIACIN ER 500 MG TAB PO SCH ×2 (09:13→20:49)
[2017-05-10] MEDS: TAMSULOSIN 0.4 MG CAP PO SCH (09:13)
[2017-05-10] MEDS: [UNRECOGNIZED DRUG - OTHER] PO SCH ×2 (09:14→20:52)
[2017-05-10 22:02] VITALS: TEMP 98.3
[2017-05-11] MEDS ORDERED: PROMETHAZINE W/CODEINE SYR 5 ML UD PO PRN (04:18)
[2017-05-11] MEDS: B COMPLEX 1 EA TAB PO SCH (08:04)
[2017-05-11] MEDS: levETIRAcetam 250 MG TAB PO SCH (08:04)
[2017-05-11] MEDS: DOCUSATE SODIUM 100 MG CAP PO SCH (08:04)
[2017-05-11] MEDS: FERROUS GLUCONATE 325 MG TAB PO SCH (08:05)
[2017-05-11] MEDS: METOPROLOL TARTRATE 25 MG TAB PO SCH (08:05)
[2017-05-11] MEDS: NIACIN ER 500 MG TAB PO SCH (08:05)
[2017-05-11] MEDS: TAMSULOSIN 0.4 MG CAP PO SCH (08:05)
[2017-05-11] MEDS: ENALAPRIL MALEATE 5 MG TAB PO SCH (08:05)
[2017-05-11] MEDS: MULTIPLE VITAMINS W/ MINERALS 1 EA TAB PO SCH (08:06)
[2017-05-11] MEDS: [UNRECOGNIZED DRUG - OTHER] PO SCH (08:07)
[2017-05-11] MEDS: NON-FORMULARY MEDICATION 1 EA MIS PO SCH (08:07)
[2017-05-11 10:24] VITALS: BP 121/78; O2SAT 95
--- NOTE | 2017-05-11 13:21 | DS ---
SUPERVISING PHYSICIAN: Kuldip Washington MD DISCHARGE DIAGNOSIS: 1. History of recent hospitalization for a gastrointestinal bleed secondary to peptic ulcer disease from severe duodenitis complicated by aspirin and postoperative Xarelto with the patient requiring multiple blood transfusions, with the patient now stable, but having severe deconditioning and requiring admission to Swing Bed for rehabilitation and physical therapy, showing good improvement and clinical improved with anticipation of continuing physical therapy through home health. The patient showed a stable hemoglobin and hematocrit through Swing Bed admission. 2. History of recent seizure diagnosis with complex partial seizure activity with MRI of the brain showing past infarcts and questionable embolic event with echocardiogram performed at [facility] showing no evidence of embolic source with ejection fraction noted to be 50% to 55% with the patient having been followed by Dr. Aguero and initiated on Keppra 500 mg b.i.d. The patient had no additional activity while on Swing Bed. 3. Recent right total knee arthroplasty performed by Dr. Martino at [facility] approximately 3 to 4 weeks previously with continue physical therapy per outpatient plan. 4. History of coronary artery disease. 5. History of renal stones. HISTORY OF PRESENT ILLNESS: Mr. Gutierres is an 82-year-old, male patient who had knee replacement completed approximately 3 weeks prior to admission to Swing Bed performed by Dr. Martino at [facility]. He was doing well with his therapy. He was on Xarelto per DVT protocol as well as high dose aspirin. He started having some dizziness and presented to the Emergency Department initially at [place] on 04/23/17 and was given some fluids for dehydration and it was his hemoglobin and hematocrit were 9.5 and 27.9. He went home and then presented back to the Emergency Room on 04/26/17 when he started having some black, tarry stools and had a syncopal episode at home. On arrival to the Emergency Department on 04/24/17, he was severely anemic with a hemoglobin 5.9 and hematocrit 17.6. He was emergently transfused 2 units of packed red blood cells and transferred to [facility] in [place] on . While at [facility], he was treated for a gastrointestinal bleed with a GI consultation and was found to have peptic ulcer disease with a severe duodenitis. He also had an echocardiogram showed an ejection fraction of 50% to 55%. He was treated for acute symptomatic blood loss and anemia and started on Protonix and continued with physical therapy. While at [facility] during his recovery, he had an apparent syncopal episode and at that time, neurology service was consulted as he became incontinent. He was diagnosed with a complex partial seizure. He had an MRI of the brain that was completed that showed a punctate foci of acute infarct in the posteromedial aspect of the left temporal lobe and additional smaller foci of acute infarct in the posterior aspect of the right temporal lobe with consideration of possible embolic etiology, however, no embolic source was noted on echocardiogram. He was followed by Dr. Aguero, neurology, and started on Keppra and had improved and had no more seizure activity. His hemoglobin and hematocrit had stabilized. His last hemoglobin prior to discharge was 8.8 and hematocrit 25.6 on 04/30/17. [facility] requested that the patient be placed in Swing Bed as he was stable for strengthening and reconditioning and ongoing physical therapy. The patient was accepted into Swing Bed on 05/04/17. He was in stable condition at time of admission. LABORATORY: CBC on admission to Swing Bed showed white count 4,900. At discharge, it was 4,000. Hemoglobin and hematocrit were stable. Initially, hemoglobin was 11.4 and hematocrit 33.9. At discharge, hemoglobin was 10.9 and hematocrit 32.7 with macrocytic/hyperchromic anemia per RBC presentation. Platelet count was within normal limits at 132,000 at discharge as well as differential was within normal limits. Admission chemistries showed normal electrolytes. BUN 12, creatinine 0.85, calcium 8.4. Urinalysis on admission was within normal limits. He had one occult blood that was negative on Swing Bed. MICROBIOLOGY: No specimens submitted. RADIOLOGY: No radiographic studies were performed. HOSPITAL COURSE: Mr. Gutierres was admitted to Swing Bed as noted above in history of present illness. He did well through his physical therapy. He had one episode of some dark stools, but were negative for occult blood as well as hemoglobin and hematocrit were stable. It was felt he was on iron therapy and this was the result of the iron therapy noted in his stools. He had no syncopal events while on Swing Bed. No seizure activity was noted. He was continued on Keppra 500 mg b.i.d. as prior to admission from [facility]. He did well clinically and was felt to be strong enough to continue with outpatient physical therapy through [facility] as well as to have close clinical followup. PLAN: Mr. Gutierres was discharged on 05/11/17 with instructions to followup both with Dr. Martino, Dr. Aguero and Dr. Bowling as scheduled. He was to resume his home medications as instructed, which did include iron therapy. He was to have home health physical therapy through [facility]. He was cautioned to not take any aspirin, ibuprofen or any other NSAIDs until he was cleared by Dr. Bowling or Dr. Aguero. He was told to take Tylenol or [place] as scheduled previously for pain control. He was on a proton pump inhibitor and was cautioned on advancing his diet as tolerated. DISCHARGE MEDICATION PRESCRIPTIONS: 1. Keppra 500 mg b.i.d. to be refilled by Dr. Aguero. All other medications were resumed as prior to hospitalization. DIET AT DISCHARGE : Regular diet as tolerated. ACTIVITY: Per physical therapy. He was to utilize a walker. He was not to drive until cleared by Dr. Aguero. CONDITION AT DISCHARGE: Stable and improved. #[id number] [facility]
== END 2017-05-11 10:24 | disposition home health service (06) | DRG 948 ==
LOC: MS 17:04 → UNDOADMIN 17:04
PROVIDERS: ADMIT Nurse Practitioner Family; ATTEND Nurse Practitioner Family
DX: R53.81 Other malaise (principal); G40.209 Localization-related (focal) (partial) symptomatic epilepsy and epileptic syndromes with complex partial seizures, not intractable, without status epilepticus; I25.10 Atherosclerotic heart disease of native coronary artery without angina pectoris; K27.9 Peptic ulcer, site unspecified, unspecified as acute or chronic, without hemorrhage or perforation; D53.9 Nutritional anemia, unspecified; Z96.652 Presence of left artificial knee joint

== ENCOUNTER 2017-05-26 14:32 | Inpatient (IN) | payer MEDICARE, OTHER ==
[2017-05-26] MEDS ORDERED: SODIUM CHLORIDE 0.9% 1000ML 1,000 ML IVS ONE ×2 (15:37→16:51)
--- NOTE | 2017-05-26 15:57 | RAD ---
EXAM DESCRIPTION: Chest,1 View CLINICAL HISTORY: DYSPNEA, COUGH COMPARISON: Chest x-ray April 24, 2017. CT of the thorax April 24, 2017. FINDINGS: Single portable frontal view the thorax. Progressive increased interstitial lung markings are seen within the left lower lobe extending up through the left midlung. This is superimposed on bullous emphysema. No effusion or pneumothorax is demonstrated. Heart size within normal limits for technique. Osseous structures stable IMPRESSION: Left lower lobe airspace opacity suspicious for pneumonia. Advanced bullous emphysema. Electronically signed by: Thom Inman MD 05/26/2017 3:56 PM [facility]
--- NOTE | 2017-05-26 16:13 | ED.PDOC ---
History of Present Illness - General Chief Complaint: Fever Stated Complaint: Low BP, weakness Time Seen by Provider: 05/26/17 15:33 Source: patient Exam Limitations: no limitations - History of Present Illness Severity: moderate Improving Factors: rest Worsening Factors: movement Associated Symptoms: cough, loss of appetite, shortness of breath Allergies/Adverse Reactions: Allergies NO KNOWN ALLERGY Allergy (Verified 05/26/17 14:43) Home Medications: Ambulatory Orders B-Complex Vitamins [Vitamin B Complex] 1 tab PO DAILY 05/04/17 Calcium W/ Magnesium [Calcium & Magnesium 750-465 mg] 2 tab PO DAILY 05/04/17 Ferrous Gluconate [Fergon] 325 mg PO TID 05/04/17 Metoprolol Tartrate 12.5 mg PO DAILY 05/04/17 Multiple Vitamins W/ Minerals [Therapeutic Multi Vitamin] 1 tab PO DAILY Niacin ER 500 mg PO BID 05/04/17 Phytosterol Esters 1 tablet PO BID 05/04/17 Tamsulosin [Flomax] 0.4 mg PO QD 05/04/17 levETIRAcetam TABLETS [Keppra] 500 mg PO BID #120 tab 05/11/17 Review of Systems - Review of Systems Constitutional: States: fever, weakness. Denies: chills, diaphoresis EENTM: States: nose congestion. Denies: ear pain Respiratory: States: cough, short of breath. Denies: wheezing Cardiology: Denies: chest pain, palpitations Gastrointestinal/Abdominal: Denies: abdominal pain, diarrhea, nausea, vomiting Genitourinary: Denies: dysuria, frequency Musculoskeletal: States: no symptoms reported Skin: States: no symptoms reported Neurological: States: no symptoms reported Endocrine: Denies: increased hunger, increased urine Hematologic/Lymphatic: Denies: easy bleeding, easy bruising Past Medical History (General) - Patient Medical History Hx Seizures: Yes - newly dx'ed 04/2017 Hx Stroke: Yes - 03/2017 Hx Asthma: No Hx of COPD: No Hx Cardiac Disorders: Yes - PA 1998 Hx Congestive Heart Failure: No Hx Pacemaker: No Hx Hypertension: No Hx Diabetes: No Hx Cancer: Yes - colon CA Hx MRSA: No Surgical History: cholecystectomy, colectomy, other - Vaccination History Hx Influenza Vaccination: Yes - 2016 Hx Pneumococcal Vaccination: - unknown - Social History Hx Tobacco Use: Yes - Quit 1986 Hx Alcohol Use: No Hx Substance Use: No Hx Physical Abuse: No Hx Emotional Abuse: No Hx Suspected Abuse: No Family Medical History - Family History Father Living Status: Cause of : Colon CA Hx Family Asthma: No Hx Family Congestive Heart Failure: No Hx Family Hypertension: No Hx Family Stroke: No Hx Cardiac Disease: No Hx Family Diabetes: Yes - mom Hx Family Cancer: Yes - Colon Physical Exam - Physical Exam General Appearance: Alert, Well Groomed Eye Exam: bilateral normal Ears, Nose, Throat: hearing grossly normal, normal ENT inspection Neck: non-tender, supple Respiratory: chest non-tender, lungs clear, normal breath sounds, no respiratory distress Cardiovascular/Chest: regular rate, rhythm, no JVD Peripheral Pulses: radial,right: 2+, radial,left: 2+ Gastrointestinal/Abdominal: non tender, soft Extremity: normal range of motion, non-tender Neurologic: no motor/sensory deficits, alert, oriented x 3 Skin Exam: normal color, warm/dry Lymphatic: no adenopathy Progress - Results/Orders Results/Orders: CXR - POS LLL PNE. RAPID FLU NEG. EKG NSR. POS ORTHOSTATIC HYPOTENSION HYPOTENSION DEHYDRATION - 111/59, GAVE 1LNS. NOW 104/60. STARTING 2ND LITER BOLUS. BLOOD CX X 2 AND LACTIC ACID PENDING. CBC HGB 11.3 (UP FROM 5.9 PREVIOUS VISIT). NA 132. CR ELEVATED AT 1.44 (1.3 BASELINE). STARTING ROCEPHIN AND AZITHROMYCIN. [facility]URTHER CARE. THANK YOU, [facility]. Departure - Departure Clinical Impression: Fever in adult, Left lower lobe pneumonia, Dehydration with hyponatremia, Hypotension, Orthostatic hypotension, Acute renal failure, Inadequate oral intake Disposition: Admit Patient Condition: Fair Departure Forms: ED Discharge - Pt. Copy, Patient Portal Self Enrollment Diet: resume usual diet Activity: walking as tolerated Referrals: Julius Bowling MD [Primary Care Provider] - 1-2 Weeks Home Medications: Ambulatory Orders B-Complex Vitamins [Vitamin B Complex] 1 tab PO DAILY 05/04/17 Calcium W/ Magnesium [Calcium & Magnesium 750-465 mg] 2 tab PO DAILY 05/04/17 Ferrous Gluconate [Fergon] 325 mg PO TID 05/04/17 Metoprolol Tartrate 12.5 mg PO DAILY 05/04/17 Multiple Vitamins W/ Minerals [Therapeutic Multi Vitamin] 1 tab PO DAILY Niacin ER 500 mg PO BID 05/04/17 Phytosterol Esters 1 tablet PO BID 05/04/17 Tamsulosin [Flomax] 0.4 mg PO QD 05/04/17 levETIRAcetam TABLETS [Keppra] 500 mg PO BID #120 tab 05/11/17 Decision To Admit - Decistion To Admit Decision to Admit Reason: Admit from ER Decision to Admit Date: 05/26/17 Decision to Admit Time: 17:04
[2017-05-26] MEDS ORDERED: AZITHROMYCIN IV 500 MG in SODIUM CHLORIDE 0.9% 250ML 250 ML IVPB ONE (16:45)
[2017-05-26] MEDS ORDERED: cefTRIAXone SODIUM 1 GM in SODIUM CHL 0.9% 50ML MIN-BAG+ 50 ML IVPB ONE (16:45)
[2017-05-26] MEDS ORDERED: cefTRIAXone SODIUM 1 GM VIAL ONE (16:48)
[2017-05-26] MEDS ORDERED: AZITHROMYCIN IV 500 MG VIAL IVPB ONE (16:48)
[2017-05-26] MEDS ORDERED: SODIUM CHLORIDE 0.9% 250ML 250 ML ONE (16:49)
[2017-05-26] MEDS ORDERED: SODIUM CHL 0.9% 50ML MIN-BAG+ 50 ML IVPB ONE (16:49)
--- NOTE | 2017-05-26 17:22 | HP ---
SUPERVISING PHYSICIAN: Kuldip Washington MD CHIEF COMPLAINT: Weakness, hypotension. HISTORY OF PRESENT ILLNESS: Mr. Gutierres is an 82-year-old, male patient who presented to the Emergency Department after it was suggested by Dr. Bowling that he go to have his blood pressure evaluated. He has a history of recently being in Swing Bed the early part of April here at [facility] after he was discharged from [facility] secondary to upper GI bleed due to Xarelto and NSAIDs after a knee replacement. He had been doing well and had physical therapy under the guidance of [facility]. He noted he had gone to visit his family over the holidays and was doing fairly well. He returned home and over the weekend, he started feeling weak and noticed he was having some chills, but never really noted a fever. He noted he slept most of the day on Thursday because he was just weak and felt tired. Today, he was seen by the physical therapist and at that time, it was noted that his blood pressure was low. Dr. Bowling's office was notified of the patient's symptoms and blood pressure and suggested he go to the Emergency Room for further evaluation. In the Emergency Room, initial blood pressure was 123/51 with temperature of 100.8 and saturation 95% on room air. He also had tilt vital signs that were positive with the lowest blood pressure standing being 77/24 with heart rate of 84. He had not had any syncopal episodes and continued workup included a chest x-ray. On his single view chest x-ray per radiologic interpretation was noted a left lower lobe airspace opacity suspicious for pneumonia. His laboratory studies showed he had a normal white count of 7,800, hemoglobin 11.3, hematocrit 33.5, platelet count 135,000, differential within normal limits. Chemistries showed just a mild hyponatremia with sodium 132, lactic acid 1.0. Liver functions within normal limits. Blood sugar 126. Renal function showed BUN 22, creatinine 1.44. Given the findings on chest x-ray with ongoing fever, flu swab was completed which was negative for influenza A and B. He was given 2 liters of fluid in the Emergency Department and showed good response with his blood pressure being stable prior to admission with blood pressure 121/54. He remained febrile and was given Tylenol. The Emergency Room physician, Dr. Coleman, requested the patient be admitted to the hospital for treatment of developing left lower lobe pneumonia and hypotension felt to be secondary to dehydration with tilt vital signs that are positive. He noted that the patient denied any changes in his stool habits, but occult bloods were pending at time of admission. The patient was admitted in stable condition. PAST MEDICAL HISTORY: 1. Coronary artery disease. 2. Recent history of being diagnosed with complex partial seizures with MRI that showed embolic events having been seen by Dr. Martins and started on Keppra with no mention of any seizure since discharge from [facility]. 3. Past history of recent gastrointestinal bleed secondary to severe duodenitis due to chronic peptic ulcer disease that was compounded by aspirin and recent postoperative Xarelto after knee replacement, requiting transfusion of packed red blood cells. 4. Obstructive sleep apnea. 5. History of colon cancer diagnosed in 2001 with colon resection in 2002. PAST SURGICAL HISTORY: 1. Total knee arthroplasty within the last 2 months. 2. Tonsillectomy and adenoidectomy. 3. Cholecystectomy in 2007. 4. Colon resection in 2002. 5. Coronary artery stent placement. HOME MEDICATIONS: 1. Tramadol 50 mg q.6h. p.r.n. 2. Iron gluconate 240 mg daily. 3. Protonix 40 mg daily. 4. Keppra 500 mg twice daily. 5. Flomax 0.4 mg q. daily. 6. Phytosterol Esters 1 tablet twice daily. 7. Niacin 500 mg twice daily. 8. Multiple vitamins 1 tablet daily. 9. Metoprolol tartrate 12.5 mg daily. 10. Calcium supplement 2 tablets daily. 11. B complex vitamin 1 daily. ALLERGIES: NO KNOWN DRUG ALLERGIES. FAMILY HISTORY: Father at age 73 secondary to colon cancer. Mother secondary to complications from diabetes. 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 He went to [email or web address]. 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 He has worked for [employer] in [place]. He is . He smoked tobacco, but quit in 1998. He drinks alcohol only on a social basis. REVIEW OF SYSTEMS: CONSTITUTIONAL: Positive for fever, weakness with some chills and diaphoresis on admission. HEENT: Positive for chronic nasal congestion, but denies any ear pain or sore throat. RESPIRATORY: Positive for cough, shortness of breath and some wheezing. CARDIOVASCULAR: Denies chest pain or palpitations. GASTROINTESTINAL: Denies abdominal pain, diarrhea, hematochezia, melena, other bowel changes, nausea or vomiting. GENITOURINARY: Denies dysuria, hematuria, or other urinary symptoms. MUSCULOSKELETAL: As noted in history of present illness, generalized weakness. NEUROLOGIC: Denies syncopal episodes, dizziness or other neurologic symptoms. PHYSICAL EXAMINATION: VITAL SIGNS: On admission to Medical/Surgical Floor, blood pressure 121/54. Heart rate 68. Respirations 16. Saturation 94% on room air. Febrile with temperature of 100.8. Admission weight 93.4. GENERAL: The patient appears to be well-nourished, somewhat dehydrated, but in no acute distress. HEENT: Tympanic membranes clear bilaterally. Oropharynx is pink, moist without any lesions. NECK: Supple, nontender with full range of motion. No jugular venous distention noted. CHEST: Lung sounds fairly clear, but diminished towards the bases with just some very faint rhonchi heard on the left posterior aspect. CARDIOVASCULAR: Regular rate and rhythm without any appreciable murmurs, gallops, or rubs. ABDOMEN: Soft, nontender. Positive bowel sounds. EXTREMITIES: There is no cyanosis, clubbing or edema. NEUROLOGIC: The patient is alert and oriented times three. Cranial nerves II- XII are grossly intact. Facial features are symmetrical. Extraocular movements are within normal limits. There is no nystagmus noted. LABORATORY: CBC showed white count 7,800, hemoglobin 11.3, hematocrit 33.5. Review of records shows that his hemoglobin and hematocrit on discharge from Swing Bed admission on 05/11/17 were hemoglobin 10.9 and hematocrit 32.7. Differential today is without a left shift. Chemistries show some mild hyponatremia with potassium 3.8, sodium 132, BUN up to 22, creatinine up to 1.44 compared to creatinine on Swing Bed admission of 0.85. Blood sugar 126. Liver functions within normal limits. Urinalysis pending. Occult stool bloods pending. EKG showed a normal sinus rhythm. MICROBIOLOGY: Blood cultures pending. Influenza A and B swab were negative. Sputum culture pending. RADIOLOGY: Chest x-ray in the Emergency Department, single view, showed left lower lobe airspace opacity suspicious for pneumonia. ASSESSMENT: 1. Febrile illness with radiographic studies showing developing left lower lobe pneumonia with a negative flu swab. 2. Orthostatic hypotension, secondary to dehydration with concerns for anemia with the patient having a recent history of upper gastrointestinal bleed with duodenitis requiring transfusion of 3 units of packed red blood cells. 3. Moderate dehydration as evidenced by orthostatic hypotension and elevated BUN and creatinine levels. 4. Mild electrolyte imbalance with hypokalemia. 5. Renal insufficiency secondary to prerenal azotemia with a degree of dehydration with baseline creatinine of 0.85. 6. History of complex partial seizures on Keppra with no seizure activity reported since discharge from [facility] earlier in the month. 7. History of coronary artery disease. 8. History of renal stones. PLAN: The patient will be admitted to the hospital for close monitoring and further treatment of underlying developing pneumonia as well as orthostatic hypotension and dehydration. He was started on antibiotics after blood cultures were drawn. He was given 2 liters of fluid in the Emergency Room to include normal saline. This will be followed with normal saline with 20 of potassium run at 110 mL per hour. He will be on aggressive pulmonary hygiene. We will collect a sputum and await those results to further target antibiotic therapy as appropriate. He will be on DVT prophylaxis with Lovenox with close monitoring of his hemoglobin and hematocrit as he is at high risk for DVT secondary to underlying infection. We will resume his home medications once they have been updated and verified in the electronic medical record. We will anticipate his length of stay to be at least 2 to 3 days. Until clinically stable, we will continue to monitor the patient closely and treat appropriately. Once he is clinically able to be discharged, he will need close clinical followup with his primary care provider, Dr. Bowling. Until discharge, we will continue to monitor the patient closely and treat appropriately. #[id number] [facility]
[2017-05-26] MEDS ORDERED: ALBUTEROL SULFATE 2.5 MG/3 ML VIAL NEB PRN (17:55)
[2017-05-26] MEDS ORDERED: ACETAMINOPHEN 325 MG TAB PO PRN (17:55)
[2017-05-26] MEDS ORDERED: SODIUM CHLORIDE 0.9% (FLUSH) 10 ML SYG IV PRN (17:55)
--- NOTE | 2017-05-26 18:30 | PCM.CORE ---
Physician DVT/VTE - Nurse DVT Assessment & Total Each Risk Factor Represents 3 Points: Age over 75 years Each Risk Factor is 1 Point: Obesity (BMI >25), Serious Lung disease (pnemonia < 1month, COPD, emphysema,etc) DVT Assessment Score: 5 - 5 or more Very High Risk Treatments: Early Ambulation *, Sequential Compression Device Pharmacological: Enoxaparin 40mg SQ Daily
[2017-05-26] MEDS ORDERED: traMADol HCL 50 MG TAB PO PRN (18:31)
[2017-05-26] MEDS: ENOXAPARIN SODIUM 40 MG/0.4 ML SYG SUBCU SCH (19:12)
[2017-05-26] MEDS: IV SET AND CAP CHANGE INJ INJ SCH (19:16)
[2017-05-26] MEDS ORDERED: IPRATROPIUM/ALBUTEROL 3 ML VIAL INH SCH (20:00)
[2017-05-26] MEDS: KCL 20 MEQ/NS 1,000 ML IVS PRN (20:03)
[2017-05-26] MEDS: TAMSULOSIN 0.4 MG CAP PO SCH (20:21)
[2017-05-26] MEDS: NIACIN ER 500 MG TAB PO SCH (20:50)
[2017-05-26] MEDS: levETIRAcetam 250 MG TAB PO SCH (20:50)
[2017-05-27] MEDS: KCL 20 MEQ/NS 1,000 ML IVS PRN (04:02)
[2017-05-27] MEDS ORDERED: PANTOPRAZOLE SODIUM IV 40 MG VIAL IV SCH (06:30)
--- NOTE | 2017-05-27 07:45 | RAD ---
EXAM DESCRIPTION: Chest,2 Views CLINICAL HISTORY: Pneumonia COMPARISON: May 26, 2017 FINDINGS: Two-view chest x-ray shows enlargement of cardiac silhouette without pulmonary vascular congestion. Lungs are mildly hyperinflated. Coarsened increased interstitial markings in the mid to lower lung kirkpatrick bilaterally is again seen. More localized area of focal tracer consolidation with questionable central lucency on PA projection is seen in the left midlung probably in the region of the left upper lobe lingula. Costophrenic angles are not included in the [id number] on lateral projection. Mild disc degenerative changes of the spine are seen. IMPRESSION: Persistent to slightly worsening infiltrate in the left upper lobe to lingula likely represents pneumonia versus aspiration. Question developing cavitary lesion versus infected bulla in this region. Chronic appearing increased interstitial changes in this emphysematous chest are noted. Electronically signed by: Cisco Colmenares MD 05/27/2017 7:44 AM [facility]
[2017-05-27] MEDS: IPRATROPIUM/ALBUTEROL 3 ML VIAL NEB SCH ×4 (08:15→20:45)
[2017-05-27] MEDS ORDERED: cefTRIAXone SODIUM 1 GM VIAL ONE ×2 (08:42→19:17)
[2017-05-27] MEDS ORDERED: SODIUM CHL 0.9% 50ML MIN-BAG+ 50 ML IVPB ONE ×2 (08:43→19:17)
[2017-05-27] MEDS ORDERED: AZITHROMYCIN 250 MG TAB PO SCH (09:00)
[2017-05-27] MEDS ORDERED: AZITHROMYCIN IV 500 MG in SODIUM CHLORIDE 0.9% 250ML 250 ML IVPB SCH ×2 (09:00→10:00)
[2017-05-27] MEDS ORDERED: FERROUS GLUCONATE 240 MG PO SCH (09:00)
[2017-05-27] MEDS: levETIRAcetam 250 MG TAB PO SCH ×2 (09:21→16:51)
[2017-05-27] MEDS: NIACIN ER 500 MG TAB PO SCH ×2 (09:21→21:59)
[2017-05-27] MEDS: TAMSULOSIN 0.4 MG CAP PO SCH (09:22)
[2017-05-27] MEDS: MULTIPLE VITAMINS W/ MINERALS 1 EA TAB PO SCH (09:22)
[2017-05-27] MEDS: METOPROLOL TARTRATE 25 MG TAB PO SCH (09:23)
[2017-05-27] MEDS: cefTRIAXone SODIUM 1 GM in SODIUM CHL 0.9% 50ML MIN-BAG+ 50 ML IVPB SCH ×2 (09:25→21:00)
[2017-05-27] MEDS ORDERED: AZITHROMYCIN IV 500 MG VIAL IVPB ONE (09:31)
[2017-05-27] MEDS ORDERED: SODIUM CHLORIDE 0.9% 250ML 250 ML ONE (09:31)
[2017-05-27] MEDS ORDERED: cefTRIAXone SODIUM 1 GM in SODIUM CHL 0.9% 50ML MIN-BAG+ 50 ML IVPB SCH (10:00)
[2017-05-27] MEDS ORDERED: FERROUS GLUCONATE 325 MG TAB PO SCH (10:30)
[2017-05-27] MEDS: FERROUS GLUCONATE 325 MG TAB PO SCH ×3 (12:30→21:00)
--- NOTE | 2017-05-27 13:17 | PN ---
DATE: 05/27/17 SUBJECTIVE: Today is the first day of hospitalization and ongoing treatment. Significant left lower lobe pneumonia with possible cavitation is noted on chest x-ray and will require ongoing followup. Temperature was up to 101 degrees earlier today. Recent low blood pressure, which has shown some improvement after hydration has been completed and treatment initiated. The patient in some ways states that he is feeling better. He is able to communicate in full sentences and has good recall of his past history. Of significance is the fact that he has been off smoking for about 35 years. He did have a heart attack in 1998. About 3 weeks ago, he had back bowel movements and was noted to have a hemoglobin under 6 requiring 2 units of packed red blood cells. He was subsequently sent to [facility] where he had EGD and colonoscopy which showed some bleeding from the diverticular source and whether that is contributing to the melena is to be observed for. He also had a black-out spell and was seen by neurology service who started him on seizure medications and a diagnosis of a recent frontal lobe stroke. He had colon cancer also in 2011 with laparoscopic removal of part of his colon and primary anastomosis. OBJECTIVE: VITAL SIGNS: Afebrile at this time, though he did have a temperature earlier this morning of 101.1. Blood pressure at the time of the fever was 120/71. Pulse 66. Room air saturation 90%, up to 95% on 2 liters nasal cannula. Awaiting tilt test. GENERAL: The patient is awake and alert. Coloration is quite pale. Conjunctival pallor is also evident on exam. LUNGS: Some rales, especially in the left base coinciding with the radiographic appearance of the left lower lobe pneumonia with possible early cavitation or could be result of some emphysematous blebs being present within the infiltrate, but observation required. HEART: Regular. ABDOMEN: Soft. LABORATORY: White count 6,300 with 68% neutrophils. Hemoglobin has dropped from 11.3 to 10 with a normocytic/hyperchromic presentation. The patient had been started on iron in the past. Chemistries show sodium 132, potassium 3.8, BUN up from 12 to 22, creatinine 1.44. Osmolality is down to 269. Liver enzymes normal. Urinalysis has been clean. Awaiting stool guaiacs. Sputum culture is pending and blood cultures negative to date. Chest x-ray does show left lower lobe infiltrate with possible early cavitation. Close followup necessary. Chronic obstructive pulmonary disease present. ASSESSMENT: 1. Acute left lower lobe pneumonia with radiographic evidence of possible cavitary progression, probable community acquired, with sputum and blood cultures pending, started on Rocephin and azithromycin parenterally. 2. Febrile illness, probably related to the underlying pneumonia. 3. Significant hypotension, probably related to hypovolemia, yet continue evaluation and support for possible gastrointestinal hemorrhage. 4. Anemia with a normocytic/hyperchromic red blood cell indices presentation with recent history of significant anemia with hemoglobin of under 6 and requiring 3 units of packed red blood cells. Close followup necessary. 5. Probable evidence of melena with suggestion of upper gastrointestinal hemorrhage with treatment and observation to continue. 6. Mild hyponatremia. 7. Mild renal insufficiency. 8. History of coronary artery disease with myocardial infarction in 1998 and subsequent coronary angioplasty and stent placement. 9. History of complex partial seizures, started on Keppra recently. 10. 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 11. History of renal stones in the past. 12. History of chronic obstructive pulmonary disease. PLAN: We will continue to observe closely. We will check for ambulation studies daily to evaluate for the need of oxygen. Tilt vitals pending. The patient is on iron and some iron studies are ordered since the last one was four years ago in our chart. Observe closely and continue with prevention for upper GI bleed. Reevaluate chest x-ray. Increase dose of Rocephin to 1 grams q.12h. and continue with parenteral azithromycin. Reevaluate in the morning and add a third antibiotic if evidence of radiographic progression. Increase activity level and observe closely. #[id number] [facility]
[2017-05-27] MEDS: ENOXAPARIN SODIUM 40 MG/0.4 ML SYG SUBCU SCH (16:51)
[2017-05-28] MEDS: KCL 20 MEQ/NS 1,000 ML IVS PRN ×2 (02:09→14:02)
[2017-05-28] MEDS ORDERED: PANTOPRAZOLE SODIUM TAB 40 MG PO ONE (05:06)
[2017-05-28] MEDS: PANTOPRAZOLE SODIUM TAB 40 MG PO SCH (06:27)
--- NOTE | 2017-05-28 06:52 | RAD ---
EXAM DESCRIPTION: Chest,2 Views CLINICAL HISTORY: LLL pneumonia, cavity? COMPARISON: 05/27/2017 and 04/24/2017 FINDINGS: Frontal and lateral views of the chest. Atherosclerotic calcification of the thoracic aorta. Cardiomegaly. Left mid and lower lung interstitial and airspace opacity. Right infrahilar and basilar interstitial and airspace opacity. No pneumothorax. No acute osseous abnormalities. Questionable lucent area in the left midlung is not significantly changed. Upper abdominal soft tissues are unremarkable. IMPRESSION: 1. No significant interval change with persistent bilateral airspace opacities concerning for pneumonia/aspiration. 2. Focal lucent area in the left midlung consolidation is not significantly changed. This likely represents bulla seen on previous CT. Electronically signed by: Shade Stokes 05/28/2017 6:51 AM [employer]
[2017-05-28] MEDS ORDERED: SODIUM CHL 0.9% 50ML MIN-BAG+ 50 ML IVPB ONE (07:13)
[2017-05-28] MEDS ORDERED: cefTRIAXone SODIUM 1 GM VIAL ONE (07:14)
[2017-05-28] MEDS: levETIRAcetam 250 MG TAB PO SCH ×2 (07:41→16:00)
[2017-05-28] MEDS: MULTIPLE VITAMINS W/ MINERALS 1 EA TAB PO SCH (09:09)
[2017-05-28] MEDS: NIACIN ER 500 MG TAB PO SCH ×2 (09:09→20:49)
[2017-05-28] MEDS: FERROUS GLUCONATE 325 MG TAB PO SCH ×3 (09:09→20:49)
[2017-05-28] MEDS: METOPROLOL TARTRATE 25 MG TAB PO SCH (09:10)
[2017-05-28] MEDS: TAMSULOSIN 0.4 MG CAP PO SCH (09:10)
[2017-05-28] MEDS: cefTRIAXone SODIUM 1 GM in SODIUM CHL 0.9% 50ML MIN-BAG+ 50 ML IVPB SCH (09:11)
[2017-05-28] MEDS ORDERED: MAGNESIUM HYDROXIDE 30 ML UD PO PRN (09:29)
[2017-05-28] MEDS: IPRATROPIUM/ALBUTEROL 3 ML VIAL NEB SCH ×4 (09:30→20:15)
[2017-05-28] MEDS: DOCUSATE SODIUM 100 MG CAP PO SCH (09:55)
[2017-05-28] MEDS: AZITHROMYCIN 250 MG TAB PO SCH (09:55)
[2017-05-28] MEDS ORDERED: MAGNESIUM HYDROXIDE 30 ML UD PO ONE (12:30)
[2017-05-28] MEDS ORDERED: CEFEPIME 2 GM VIAL IVPB ONE ×2 (13:09→20:39)
[2017-05-28] MEDS: CEFEPIME 1 GM in SODIUM CHLORIDE 0.9% 50ML 50 ML IVPB SCH (13:09)
[2017-05-28] MEDS ORDERED: SODIUM CHLORIDE 0.9% 50ML 50 ML ONE ×2 (13:09→20:40)
--- NOTE | 2017-05-28 13:27 | PN ---
DATE: 05/28/17 SUBJECTIVE: The patient states he is feeling a little better today compared to yesterday and much better compared to when he arrived in the hospital. He is still very weak and feels that strengthening with ongoing physical therapy would be helpful and is to be scheduled. Appetite is fairly good. The patient is fully awake and alert. Some improved pulse oximetry determinations upon ambulation are noted and will be reviewed in the chart. OBJECTIVE: VITAL SIGNS: Afebrile. Pulse 78. Blood pressure 114/87. Pulse oximetry 93% on 2 liters, but he is breathing somewhat fast at about 40 per minute. Weight is up and will need to be verified for accuracy. He is noticeably taking in more than he is putting out and will cut back on some of his IV rates. LUNGS: Less rales, especially on the left base compared to yesterday. HEART: Fairly regular. ABDOMEN: Soft. NEUROLOGIC: The patient is awake and alert. LABORATORY: White count 6,400, hemoglobin up to 10.2. Chemistries show sodium 132, potassium 3.7, CO2 20, BUN 14, creatinine 1.19, glucose 150. Iron studies are low. Awaiting further stool specimens for Hemoccult determination. ASSESSMENT: 1. Acute left lower lobe pneumonia with radiographic evidence of possible cavitary progression, probable community acquired, with sputum and blood cultures pending, started on Rocephin and azithromycin parenterally. 2. Febrile illness, probably related to the underlying pneumonia. 3. Significant hypotension, probably related to hypovolemia, yet continue evaluation and support for possible gastrointestinal hemorrhage. 4. Anemia with a normocytic/hyperchromic red blood cell indices presentation with recent history of significant anemia with hemoglobin of under 6 and requiring 3 units of packed red blood cells. Close followup necessary. 5. Probable evidence of melena with suggestion of upper gastrointestinal hemorrhage with treatment and observation to continue. 6. Mild hyponatremia. 7. Mild renal insufficiency. 8. History of coronary artery disease with myocardial infarction in 1998 and subsequent coronary angioplasty and stent placement. 9. History of complex partial seizures, started on Keppra recently. 10. 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 11. History of renal stones in the past. 12. History of chronic obstructive pulmonary disease. PLAN: Because of the persistence of radiographic findings of the pneumonia process, his ceftriaxone will be stopped he will be introduced to a fourth generation cephalosporin, cefepime, that has additional coverage to cover some of the potential aspiration bacteria. The patient admits to having choked in the past, but not recently. The cavitary lesion in the left lung may be related to bullae and not a cavitary lesion. Suggest rechecking x-ray on the day after tomorrow to give it a chance to equilibrate. Continue antibiotic therapy. Physical therapy to evaluate for possible Swing Bed status as of tomorrow so that he will be able to have more intense therapy and have continued administration of antibiotics until the antibiotics can be documented in showing improvement, both clinically and radiographically. Reevaluate in the morning. #[id number] [facility]
[2017-05-28] MEDS: ENOXAPARIN SODIUM 40 MG/0.4 ML SYG SUBCU SCH (17:51)
[2017-05-29] MEDS: CEFEPIME 1 GM in SODIUM CHLORIDE 0.9% 50ML 50 ML IVPB SCH ×2 (00:28→12:43)
[2017-05-29] MEDS: PANTOPRAZOLE SODIUM TAB 40 MG PO SCH (06:20)
[2017-05-29] MEDS: levETIRAcetam 250 MG TAB PO SCH ×2 (07:13→17:33)
[2017-05-29] MEDS: FERROUS GLUCONATE 325 MG TAB PO SCH ×3 (08:09→20:49)
[2017-05-29] MEDS: DOCUSATE SODIUM 100 MG CAP PO SCH (08:09)
[2017-05-29] MEDS: NIACIN ER 500 MG TAB PO SCH ×2 (08:09→20:49)
[2017-05-29] MEDS: METOPROLOL TARTRATE 25 MG TAB PO SCH (08:09)
[2017-05-29] MEDS: TAMSULOSIN 0.4 MG CAP PO SCH (08:09)
[2017-05-29] MEDS: MULTIPLE VITAMINS W/ MINERALS 1 EA TAB PO SCH (08:10)
[2017-05-29] MEDS: IPRATROPIUM/ALBUTEROL 3 ML VIAL NEB SCH ×4 (08:45→20:45)
[2017-05-29] MEDS: AZITHROMYCIN 250 MG TAB PO SCH (09:34)
[2017-05-29] MEDS ORDERED: CEFEPIME 2 GM VIAL IVPB ONE (12:05)
[2017-05-29] MEDS ORDERED: SODIUM CHLORIDE 0.9% 50ML 50 ML ONE (12:05)
[2017-05-29] MEDS ORDERED: methylPREDNISolone SODIUM SUC 125 MG/2 ML VIAL IV ONE (16:48)
[2017-05-29] MEDS ORDERED: FUROSEMIDE INJ 40 MG/4 ML VIAL IV ONE (17:00)
[2017-05-29] MEDS ORDERED: methylPREDNISolone SODIUM SUC 40 MG/ML VIAL ONE (17:03)
[2017-05-29] MEDS: ENOXAPARIN SODIUM 40 MG/0.4 ML SYG SUBCU SCH (17:33)
[2017-05-29] MEDS: IV SET AND CAP CHANGE INJ INJ SCH (17:38)
--- NOTE | 2017-05-29 18:01 | PN ---
DATE: 05/29/17 SUPERVISING PHYSICIAN: Kuldip Washington M.D. SUBJECTIVE: The patient is returning to his room from walking in the hallways. He is somewhat dyspneic. He denies any chest pain, nausea or vomiting, but he does complain of some wheezing and shortness of breath sometimes at rest, but much worse when he is active. He feels worse today than he did yesterday and is quite weak. OBJECTIVE: VITAL SIGNS: He is afebrile, heart rate right after returning to his room is 116 but decreases to 77 after resting. Blood pressure 104/59, respiratory rate 28 but after rest it drops to 22. O2 sat is 90% and with rest it increases to 93%. RESPIRATORY: Bilateral expiratory wheezes in the apices, diminished at the bases. CARDIAC: Regular rate and rhythm. ABDOMEN: Soft, nondistended, non-tender. Bowel sounds are positive. EXTREMITIES: No cyanosis , clubbing or edema. NEUROLOGIC: He is awake, alert and oriented times three. LABORATORY: WBCs are 6.6 with hemoglobin 10.8, hematocrit 31.6, platelets 150. Sodium is slightly low at 133 with potassium 3.8, chloride 103, BUN 8, creatinine 0.91. Iron is 12, TIBC 184.8, iron saturation is 6.4. Stool occult blood is negative. Final sputum culture shows moderate growth of budding yeast. Preliminary blood cultures after 3 days are negative. RADIOLOGY: Chest x-ray shows no significant interval change with persistent bilateral airspace opacity concerning for pneumonia or aspiration. There is a focal lucent area in the left mid lung, consolidation is not significantly changed. This represents bullae seen on previous CT. All other labs and films have been reviewed via the EMR. ASSESSMENT: 1. Acute left lower lobe pneumonia most likely community acquired. Negative sputum and blood cultures presently on Rocephin and Azithromycin. 2. Febrile illness most likely related to the pneumonia that has resolved. 3. Significant hypotension most likely related to hypovolemia now resolved. 4. Anemia with a normocytic hyperchromic red blood cell indices presentation. Had a recent hemoglobin of under 6 and required 3 units of packed red blood cells. His H&H is now stable. 5. Mild hyponatremia that is slightly improved. 6. Mild renal insufficiency. 7. History of coronary artery disease with myocardial infarction in 1998 with a history of coronary angioplasty and stent placement. 8. History of complex partial seizures recently started on Keppra. 9. History of cerebrovascular accident with acute recent frontal infarction. 10. History of renal stones. 11. History of chronic obstructive pulmonary disease. PLAN: We will continue present supportive care. I have encouraged him to continue ambulating in the hallways. His increased dyspnea may be due to some fluid overload so I will give him 1 dose of diuretics as well as giving him 1 dose of IV steroids. Will continue with his Cefipime and Azithromycin. I have continued to encourage good pulmonary hygiene. I have repeated his lab and chest x-ray in the morning. We will continue to monitor him closely and follow as needed. Hopefully he can be discharged tomorrow with close followup with Dr. Bowling, his primary care physician. Dr. Washington is the collaborating physician available for consultation. #[id number] [facility]
[2017-05-29] MEDS: SODIUM CHLORIDE 0.9% (FLUSH) 10 ML SYG IV SCH (20:49)
[2017-05-30] MEDS ORDERED: SODIUM CHLORIDE 0.9% 50ML 50 ML ONE ×2 (00:11→14:32)
[2017-05-30] MEDS ORDERED: CEFEPIME 2 GM VIAL IVPB ONE ×2 (00:11→14:31)
[2017-05-30] MEDS: CEFEPIME 1 GM in SODIUM CHLORIDE 0.9% 50ML 50 ML IVPB SCH ×2 (00:16→15:02)
[2017-05-30] MEDS: PANTOPRAZOLE SODIUM TAB 40 MG PO SCH (06:11)
[2017-05-30] MEDS: levETIRAcetam 250 MG TAB PO SCH (08:08)
--- NOTE | 2017-05-30 08:10 | RAD ---
PROCEDURE: Chest,2 Views CLINICAL HISTORY: pna INDICATION: Same as above COMPARISON: 05/28/2017 TECHNIQUE: PA and and lateral chest radiographs were obtained. FINDINGS: Chronic interstitial changes are again seen in the bilateral lung kirkpatrick. There continues to be left-sided pleural thickening. Improving left mid and lower lung zone infiltrates are seen There are no pleural effusion or pneumothorax. The cardiomediastinal silhouette is stable. IMPRESSION: Improving left mid and lower lung zone infiltrates are seen. Continued follow-up is suggested. Electronically signed by: Earl Tineo MD 05/30/2017 8:08 AM [facility] Workstation: [id number]
[2017-05-30] MEDS: IPRATROPIUM/ALBUTEROL 3 ML VIAL NEB SCH ×3 (08:40→16:15)
[2017-05-30] MEDS: FERROUS GLUCONATE 325 MG TAB PO SCH (09:27)
[2017-05-30] MEDS: DOCUSATE SODIUM 100 MG CAP PO SCH (09:27)
[2017-05-30] MEDS: METOPROLOL TARTRATE 25 MG TAB PO SCH (09:27)
[2017-05-30] MEDS: TAMSULOSIN 0.4 MG CAP PO SCH (09:27)
[2017-05-30] MEDS: NIACIN ER 500 MG TAB PO SCH (09:28)
[2017-05-30] MEDS: MULTIPLE VITAMINS W/ MINERALS 1 EA TAB PO SCH (09:28)
[2017-05-30] MEDS: SODIUM CHLORIDE 0.9% (FLUSH) 10 ML SYG IV SCH (09:29)
[2017-05-30] MEDS: AZITHROMYCIN 250 MG TAB PO SCH (10:48)
[2017-05-30 11:57] VITALS: TEMP 98.2
[2017-05-30 15:19] VITALS: BP 108/66
[2017-05-30 18:02] VITALS: O2SAT 98
--- NOTE | 2017-05-30 20:45 | DS ---
SUPERVISING PHYSICIAN: Kuldip Washington M.D. DISCHARGE DIAGNOSIS: 1. Acute left lower lobe pneumonia most likely community acquired. Negative sputum and blood cultures presently on Rocephin and Azithromycin. 2. Febrile illness most likely related to the pneumonia that has resolved. 3. Significant hypotension most likely related to hypovolemia now resolved. 4. Anemia with a normocytic hyperchromic red blood cell indices presentation. Had a recent hemoglobin of under 6 and required 3 units of packed red blood cells. His H&H is now stable. 5. Mild hyponatremia that is slightly improved. 6. Mild renal insufficiency. 7. History of coronary artery disease with myocardial infarction in 1998 with a history of coronary angioplasty and stent placement. 8. History of complex partial seizures recently started on Keppra. 9. History of cerebrovascular accident with acute recent frontal infarction. 10. History of renal stones. 11. History of chronic obstructive pulmonary disease. HISTORY OF PRESENT ILLNESS: This is an 82 year-old male patient who was seen in the Emergency Room after he had seen his primary care physician, Dr. Bowling, due to an elevated blood pressure. He had been in the hospital earlier in April as a Swing Bed admission due to an upper GI bleed due to Xarelto and NSAIDs. He had progressed well with his physical therapy and [facility]. He had gone to visit family over the holiday and was doing well. He returned home over the weekend and started feeling weak, and noticed he was having chills but never really noted a fever. He had been sleeping quite a bit and was extremely tired. Initially in the Emergency Room his blood pressure was 123/51 with a temperature of 100.8, his O2 sat was 95% on room air. His tilt vital signs were positive. The lowest blood pressure was 77/24 with a heart rate of 84. There had been no report of any syncopal episodes and his workup included a chest x-ray. Per chest x-ray, he was noted to have a left lower lobe airspace opacity that was suspicious for pneumonia. His lab studies originally had a white count of 7800 with hemoglobin 11.3, hematocrit 33.5, platelet count 135,000. Liver function was normal. Blood sugar was 126. Renal function showed a BUN 22, creatinine 1.44. Due to his febrile illness and the findings on the chest x-ray, he was admitted to the hospital for a left lower lobe pneumonia and hypotension as well as dehydration and febrile illness. HOSPITAL COURSE: The patient was given fluids as well as Cefipime and Azithromycin. His WBCs remained stable and his hemoglobin and hematocrit also remained stable at 10.6 and 31. He did get quite short of breath multiple times during his ambulation in the halls and his oxygen dropped to the mid to low 80s without oxygenation. An ambulation study was performed and it was felt that it would be prudent for him to go home on home oxygen as on room air with ambulation his oxygen saturations dropped to 87% and he became quite dyspneic. Today, his lab values have all stabilized. His vital signs have been stable. It is felt that he can be discharged home today. DISCHARGE PLAN: The patient will be discharged home in stable condition. Home oxygen has been ordered and he has been instructed to utilize his oxygen especially at night and when he gets short of breath. We were unable to get a nebulizer today but it would be helpful if he could get a nebulizer in the next day or 2 and utilize short-acting beta agonist nebulizer treatments. He will also be sent home on some Cefdinir for 7 days. He will need close followup with Dr. Bowling next week. He is to return to the clinic or return to the hospital for any further complications or worsening symptoms. It also is felt that he might benefit from pulmonary rehab in the outpatient setting. DISCHARGE MEDICATIONS: 1. Flomax. 2. Phytosterol esters. 3. Niacin. 4. Multivitamins. 5. Metoprolol. 6. Calcium and magnesium. 7. B complex vitamins. 8. Pantoprazole. 9. Tramadol. 10. Ferrous gluconate. 11. Keppra. 12. Albuterol sulfate nebs. 13. Cefdinir. Dr. Washington is the collaborating physician available for consultation.0 #[id number] [facility]
== END 2017-05-30 17:55 | disposition home health service (06) | DRG 190 ==
LOC: ER 14:32 → MS 17:21
PROVIDERS: ADMIT Nurse Practitioner Family; ATTEND Nurse Practitioner Acute Care
DX: J44.0 Chronic obstructive pulmonary disease with (acute) lower respiratory infection (principal); J18.9 Pneumonia, unspecified organism; E87.1 Hypo-osmolality and hyponatremia; N17.9 Acute kidney failure, unspecified; D64.9 Anemia, unspecified; N28.9 Disorder of kidney and ureter, unspecified; I25.10 Atherosclerotic heart disease of native coronary artery without angina pectoris; G40.909 Epilepsy, unspecified, not intractable, without status epilepticus; E86.1 Hypovolemia; E86.0 Dehydration; K27.9 Peptic ulcer, site unspecified, unspecified as acute or chronic, without hemorrhage or perforation; I25.2 Old myocardial infarction; Z96.659 Presence of unspecified artificial knee joint; Z95.5 Presence of coronary angioplasty implant and graft; Z86.73 Personal history of transient ischemic attack (TIA), and cerebral infarction without residual deficits; Z79.899 Other long term (current) drug therapy; Z87.891 Personal history of nicotine dependence; Z85.038 Personal history of other malignant neoplasm of large intestine; I95.1 Orthostatic hypotension

== ENCOUNTER → 2017-06-09 | Outpatient (CLI) | payer MEDICARE, OTHER | END | disposition home or self-care (01) | LOC: GMAB 14:31 | PROVIDERS: ATTEND Family Medicine | DX: R06.02 Shortness of breath (principal) ==

== ENCOUNTER → 2017-06-10 | Outpatient (CLI) | payer MEDICARE, OTHER ==
[~2017-06-10] MED LIST: ALBUTEROL SULFATE 2.5 MG/3 ML VIAL NEB ONE
[2017-06-10 15:31] VITALS: O2SAT 100
== END ==
LOC: RESP 14:41
PROVIDERS: ATTEND Family Medicine
DX: R06.02 Shortness of breath (principal)
CPT/HCPCS: 94060; 94640; J7611

== ENCOUNTER 2017-08-13 15:01 | Emergency (ER) | payer MEDICARE, OTHER ==
[2017-08-13 15:11] VITALS: TEMP 97.5
--- NOTE | 2017-08-13 15:48 | RAD ---
EXAM DESCRIPTION: Chest,2 Views CLINICAL HISTORY: bradycardia COMPARISON: May 30, 2017 TECHNIQUE: PA/lateral FINDINGS: The lungs are clear of infiltrate. Consolidation in the left lower lobe noted in May has cleared. There is no effusion or nodule. The lungs appear hyperinflated with flattening of the diaphragms. There is hyperlucency of the lungs as well. These findings are most consistent with chronic emphysema. IMPRESSION: 1. Chronic changes, no acute process Electronically signed by: Duke Carlin MD 08/13/2017 3:47 PM [employer] WORKER
--- NOTE | 2017-08-13 16:30 | ED.PDOC ---
History of Present Illness - General Chief Complaint: Cardiovascular Problem Stated Complaint: Sent by [facility]hab for eval HR Time Seen by Provider: 08/13/17 15:16 Source: patient Exam Limitations: no limitations - History of Present Illness Initial Comments: the patient is an 82-year-old male presenting to emergency room secondary to being found to have a low pulse rate on the pulse oximetry when he was undergoing his physical therapy this morning. The patient's actual palpable pulse is approximately twice what it is on the pulse oximetry. Telemetry monitoring shows that patient is having some ventricular bigeminy and the pulses with the ventricular beat or a little weaker than the ones from the normal sinus rhythm. Apparently the patient was pulled off of his enalapril and metoprolol couple weeks ago with his primary care doctor. This may be the reason for the increased frequency of PVCs. He has had fairly frequent PVCs on previous telemetry and EKGs. He has not had any chest pain shortness of breath or dizziness. No syncope. No leg pain. No new seizures. No other recent medication changes according to him. Timing/Duration: unsure Severity: mild Improving Factors: nothing Worsening Factors: nothing Associated Symptoms: denies symptoms Allergies/Adverse Reactions: Allergies NO KNOWN ALLERGY Allergy (Verified 05/26/17 14:43) Home Medications: Ambulatory Orders B-Complex Vitamins [Vitamin B Complex] 1 tab PO DAILY 05/04/17 Calcium W/ Magnesium [Calcium & Magnesium 750-465 mg] 2 tab PO DAILY 05/04/17 Metoprolol Tartrate 12.5 mg PO DAILY 05/04/17 Multiple Vitamins W/ Minerals [Therapeutic Multi Vitamin] 1 tab PO DAILY Niacin ER 500 mg PO BID 05/04/17 Phytosterol Esters 1 tablet PO BID 05/04/17 Tamsulosin [Flomax] 0.4 mg PO QD 05/04/17 Pantoprazole Tablet [Protonix] 40 mg PO DAILY 05/26/17 Ferrous Gluconate 324 mg PO BID 05/27/17 Levetiracetam 500 mg PO BIDFD 05/27/17 Review of Systems - Review of Systems Constitutional: States: no symptoms reported EENTM: States: no symptoms reported Respiratory: States: no symptoms reported Cardiology: States: no symptoms reported Gastrointestinal/Abdominal: States: no symptoms reported Genitourinary: States: no symptoms reported Skin: States: no symptoms reported Neurological: States: no symptoms reported Endocrine: States: no symptoms reported All other Systems: No Change from Baseline Past Medical History (General) - Patient Medical History Hx Seizures: Yes - newly dx'ed 04/2017 Hx Stroke: Yes - 03/2017 Hx Asthma: No Hx of COPD: No Hx Cardiac Disorders: Yes - [place] 1998 Hx Congestive Heart Failure: No Hx Pacemaker: No Hx Hypertension: Yes Hx Diabetes: No Hx Cancer: Yes - colon CA Hx MRSA: No Surgical History: cholecystectomy - Vaccination History Hx Influenza Vaccination: Yes - 2016 Hx Pneumococcal Vaccination: - unknown - Social History Hx Tobacco Use: Yes - Quit 1986 Hx Alcohol Use: No Hx Substance Use: No Hx Physical Abuse: No Hx Emotional Abuse: No Hx Suspected Abuse: No Family Medical History - Family History Father Living Status: Cause of : Colon CA Hx Family Asthma: No Hx Family Congestive Heart Failure: No Hx Family Hypertension: No Hx Family Stroke: No Hx Cardiac Disease: No Hx Family Diabetes: Yes - mom Hx Family Cancer: Yes - Colon Physical Exam - Physical Exam General Appearance: Alert, Comfortable, No apparent distress Eye Exam: bilateral normal Ears, Nose, Throat: hearing grossly normal, normal ENT inspection, normal pharynx Neck: full range of motion, supple Respiratory: lungs clear, normal breath sounds, no respiratory distress, no accessory muscle use Cardiovascular/Chest: normal peripheral pulses, no edema, other - see history of present illness Peripheral Pulses: radial,right: 2+, radial,left: 2+, dorsalis pedis,right: 2+, dorsalis pedis,left: 2+ Gastrointestinal/Abdominal: non tender, soft Rectal Exam: deferred Back Exam: no CVA tenderness, no vertebral tenderness Extremity: non-tender, normal inspection, no pedal edema, no calf tenderness, normal capillary refill 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, alert, normal mood/affect, oriented x 3 Skin Exam: normal color Comments: Vital Signs - 24 hr 08/13/17 08/13/17 08/13/17 15:01 15:05 15:17 Temperature 97.5 F L Pulse Rate [ 68 64 70 Apical] Respiratory 20 20 20 Rate Blood Pressure 145/68 138/53 146/66 [Left Arm] O2 Sat by Pulse 96 95 94 L Oximetry 08/13/17 15:31 Temperature Pulse Rate [ 64 Apical] Respiratory 20 Rate Blood Pressure 119/59 [Left Arm] O2 Sat by Pulse 97 Oximetry Progress - Progress Progress: 08/13/17 16:31 the patient is an 82-year-old male presenting to the emergency room secondary to what was thought to be a sinus bradycardia but is actually an asymptomatic ventricular bigeminy with a regular rate. The patient was monitored for a few hours and this actually resolved on its own. The source of this is uncertain but may have to do with the patient discontinuing his metoprolol a few weeks ago. Laboratory work is reassuring. He may have some mild dehydration currently and should increase his fluid intake for a day or 2. He should follow-up with his primary care doctor early next week. He should return to the emergency room for any significant worsening. 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 - Results/Orders Results/Orders: Laboratory Tests 08/13/17 08/13/17 08/13/17 15:31 15:31 15:31 WBC 5.4 RBC 4.53 L Hgb 13.9 L Hct 41.5 L MCV 91.6 MCH 30.6 MCHC 33.5 RDW 15.4 H Plt Count 118 L MPV 9.1 Absolute Neuts (auto) 2.50 Absolute Lymphs (auto) 2.10 Absolute Monos (auto) 0.50 Absolute Eos (auto) 0.20 Absolute Basos (auto) 0.10 Neutrophils % 46.6 Lymphocytes % 39.1 Monocytes % 9.4 H Eosinophils % 4.0 Basophils % 0.9 PT 12.1 INR 1.070 PTT (SP) 26.7 Sodium 135 Potassium 3.8 Chloride 104 Carbon Dioxide 21 Anion Gap 13.8 BUN 20 H Creatinine 1.37 H BUN/Creatinine Ratio 14.6 Random Glucose 114 H Serum Osmolality 273.6 L Calcium 9.0 Magnesium 1.9 Total Bilirubin 0.9 AST 28 ALT 23 Alkaline Phosphatase 82 Creatine Kinase 45 CK-MB (CK-2) 1.8 CK-MB (CK-2) % Not Reportable Troponin I 0.02 B-Natriuretic Peptide 231.0 H* Serum Total Protein 7.4 Albumin 3.9 Globulin 3.5 Albumin/Globulin Ratio 1.1 chest x-ray is consistent with emphysema. EKG shows a heart rate of 68 bpm and ventricular bigeminy. The bigeminy is a new finding but he has had PVCs before. He does have an old left axis deviation as well as old inferior Q waves and old poor R-wave R progression in anterior leads. QT intervals within normal limits. There is borderline first- degree AV block as well. Departure - Departure Clinical Impression: Ventricular bigeminy seen on building consultant Disposition: Discharge to Home or Self Care Condition: Fair Departure Forms: ED Discharge - Pt. Copy, Patient Portal Self Enrollment Instructions: Premature Ventricular Beats Diet: regular diet Activity: increase activity as tolerated Referrals: Julius Bowling MD [Primary Care Provider] - 1-5 Days Home Medications: Ambulatory Orders B-Complex Vitamins [Vitamin B Complex] 1 tab PO DAILY 05/04/17 Calcium W/ Magnesium [Calcium & Magnesium 750-465 mg] 2 tab PO DAILY 05/04/17 Metoprolol Tartrate 12.5 mg PO DAILY 05/04/17 Multiple Vitamins W/ Minerals [Therapeutic Multi Vitamin] 1 tab PO DAILY Niacin ER 500 mg PO BID 05/04/17 Phytosterol Esters 1 tablet PO BID 05/04/17 Tamsulosin [Flomax] 0.4 mg PO QD 05/04/17 Pantoprazole Tablet [Protonix] 40 mg PO DAILY 05/26/17 Ferrous Gluconate 324 mg PO BID 05/27/17 Levetiracetam 500 mg PO BIDFD 05/27/17 Additional Instructions: the patient is an 82-year-old male presenting to the emergency room secondary to what was thought to be a sinus bradycardia but is actually an asymptomatic ventricular bigeminy with a regular rate. The patient was monitored for a few hours and this actually resolved on its own. The source of this is uncertain but may have to do with the patient discontinuing his metoprolol a few weeks ago. Laboratory work is reassuring. He may have some mild dehydration currently and should increase his fluid intake for a day or 2. He should follow-up with his primary care doctor early next week. He should return to the emergency room for any significant worsening. 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
[2017-08-13 16:53] VITALS: BP 124/62; O2SAT 96
== END 2017-08-13 16:40 | disposition home or self-care (01) ==
LOC: ER 15:01
DX: I49.8 Other specified cardiac arrhythmias (principal); I25.2 Old myocardial infarction; I10 Essential (primary) hypertension; Z85.038 Personal history of other malignant neoplasm of large intestine; Z86.73 Personal history of transient ischemic attack (TIA), and cerebral infarction without residual deficits; Z79.899 Other long term (current) drug therapy

== ENCOUNTER → 2017-08-20 | Outpatient (CLI) | payer MEDICARE, OTHER | LOC: RESP 13:50 | PROVIDERS: ATTEND Family Medicine | DX: I49.9 Cardiac arrhythmia, unspecified (principal) ==

== ENCOUNTER → 2018-04-19 | Outpatient (CLI) | payer MEDICARE, OTHER | LOC: GMAE 10:55 | PROVIDERS: ATTEND Family Medicine | DX: I10 Essential (primary) hypertension (principal) ==

== ENCOUNTER 2018-08-01 02:19 | Emergency (ER) | payer MEDICARE, OTHER ==
[2018-08-01] MEDS ORDERED: IPRATROPIUM/ALBUTEROL 3 ML VIAL NEB ONE (02:46)
--- NOTE | 2018-08-01 02:50 | ED.PDOC ---
History of Present Illness - General Chief Complaint: General Time Seen by Provider: 08/01/18 02:46 Source: patient Exam Limitations: no limitations - History of Present Illness Initial Comments: patient comes in today with severe weakness. Patient states couple of days ago he began having dry cough, subjective fever, weakness, nasal congestion and sore throat. Patient's had some nausea but no emesis and no diarrhea. Patient awoke this morning extremely weak and arrival to the emergency rid have some mild hypoxia at 88% on room air. Patient states he does not currently use oxygen at approximately 6 months ago he'd had a frontal stroke that resulted in him needing temporary oxygen. His past medical history is significant for coronary artery disease, history of CVA, history of GI bleed, and hypertension. Patient has not smoked for over 40 years. Patient has no known drug allergy. Timing/Duration: other Severity: moderate Improving Factors: nothing Worsening Factors: nothing Associated Symptoms: cough, fever/chills, malaise, weakness Allergies/Adverse Reactions: Allergies NO KNOWN ALLERGY Allergy (Verified 05/26/17 14:43) Home Medications: Ambulatory Orders B-Complex Vitamins [Vitamin B Complex] 1 tab PO DAILY 05/04/17 Calcium W/ Magnesium [Oyster Shell Calcium/Magn 250-155 mg] 2 tab PO DAILY 05/04/17 Metoprolol Tartrate 12.5 mg PO BID 05/04/17 Multiple Vitamins W/ Minerals [Therapeutic Multi Vitamin] 1 tab PO DAILY 05/04/17 Niacin ER 500 mg PO BID 05/04/17 Phytosterol Esters 1 tablet PO BID 05/04/17 Tamsulosin [Flomax] 0.4 mg PO QD 05/04/17 Pantoprazole Tablet [Protonix] 40 mg PO DAILY 05/26/17 Ferrous Gluconate 324 mg PO BID 05/27/17 Levetiracetam 500 mg PO BIDFD 05/27/17 Enalapril Maleate 5 mg PO DAILY 08/01/18 Review of Systems - Review of Systems Constitutional: States: fever, malaise, weakness EENTM: States: nose congestion, throat pain Respiratory: States: cough. Denies: short of breath, wheezing Cardiology: States: no symptoms reported. Denies: chest pain, edema, palpitations Gastrointestinal/Abdominal: States: nausea. Denies: abdominal pain, constipation, diarrhea, vomiting Genitourinary: States: no symptoms reported Past Medical History (General) - Patient Medical History Hx Seizures: Yes - newly dx'ed 04/2017 Hx Stroke: Yes - 03/2017 Hx Asthma: No Hx of COPD: No Hx Cardiac Disorders: Yes - [place] 1998 Hx Congestive Heart Failure: No Hx Pacemaker: No Hx Hypertension: Yes Hx Diabetes: No Hx Cancer: Yes - colon CA Hx MRSA: No - Vaccination History Hx Influenza Vaccination: Yes - 2016 Hx Pneumococcal Vaccination: - unknown - Social History Hx Tobacco Use: Yes - Quit 1986 Hx Alcohol Use: No Hx Substance Use: No Hx Physical Abuse: No Hx Emotional Abuse: No Hx Suspected Abuse: No Family Medical History - Family History Father Living Status: Cause of : Colon CA Hx Family Asthma: No Hx Family Congestive Heart Failure: No Hx Family Hypertension: No Hx Family Stroke: No Hx Cardiac Disease: No Hx Family Diabetes: Yes - mom Hx Family Cancer: Yes - Colon Physical Exam - Physical Exam General Appearance: Frail, No apparent distress, Ill Appearing Eye Exam: bilateral normal Ears, Nose, Throat: hearing grossly normal, normal ENT inspection, nasal congestion, pharyngeal erythema Neck: non-tender, full range of motion, supple, normal inspection Respiratory: decreased breath sounds, wheezing - bilateral bases Cardiovascular/Chest: normal peripheral pulses, regular rate, rhythm, no edema, no gallop, no murmur Peripheral Pulses: radial,right: 2+, radial,left: 2+ Gastrointestinal/Abdominal: normal bowel sounds, non tender, soft Back Exam: normal inspection Neurologic: alert, oriented x 3 Progress - Progress Progress: 08/01/18 05:35 patient is still with weakness but no chest pain. He states when he had his heart attack he had felt an "itching" substernal pain and this does not feel like that. explained his elevated troponin and will call for transfer - Results/Orders Results/Orders: 08/01/18 02:46 SVN [SVN/Updraft Therapy] .PRN 08/01/18 03:45 EKG STAT Laboratory Results WBC 4.6 K/mm3 (4.8-10.8) L 08/01/18 02:58 RBC 4.44 M/mm3 (4.70-6.10) L 08/01/18 02:58 Hgb 14.4 gm/dL (14.0-18.0) 08/01/18 02:58 Hct 42.9 % (42.0-52.0) 08/01/18 02:58 MCV 96.6 fl (80.0-94.0) H 08/01/18 02:58 MCH 32.4 pg (27.0-31.0) H 08/01/18 02:58 MCHC 33.6 g/dL (33.0-37.0) 08/01/18 02:58 RDW 14.1 % (11.5-14.5) 08/01/18 02:58 Plt Count 71 K/mm3 (130-400) L 08/01/18 02:58 MPV 9.2 fl (7.40-10.4) 08/01/18 02:58 Absolute Neuts (auto) 3.60 K/uL (1.8-6.8) 08/01/18 02:58 Absolute Lymphs (auto) 0.50 K/uL (1.0-3.4) L 08/01/18 02:58 Absolute Monos (auto) 0.60 K/uL (0.2-0.8) 08/01/18 02:58 Absolute Eos (auto) 0.00 K/uL (0.0-0.4) 08/01/18 02:58 Absolute Basos (auto) 0.00 K/uL (0.0-0.1) 08/01/18 02:58 Neutrophils % 77.4 % (42.0-78.0) 08/01/18 02:58 Lymphocytes % 10.1 % (20.0-50.0) L 08/01/18 02:58 Monocytes % 12.0 % (2.0-9.0) H 08/01/18 02:58 Eosinophils % 0.1 % (1.0-5.0) L 08/01/18 02:58 Basophils % 0.4 % (0.0-2.0) 08/01/18 02:58 Sodium 136 mmol/L (135-145) 08/01/18 02:58 Potassium 3.7 mmol/L (3.6-5.0) 08/01/18 02:58 Chloride 105 mmol/L (101-111) 08/01/18 02:58 Carbon Dioxide 23 mmol/L (21-31) 08/01/18 02:58 Anion Gap 11.7 (12-18) L 08/01/18 02:58 BUN 19 mg/dL (7-18) H 08/01/18 02:58 Creatinine 1.18 mg/dL (0.6-1.3) 08/01/18 02:58 BUN/Creatinine Ratio 16.1 (10-20) 08/01/18 02:58 Random Glucose 109 mg/dL (70-105) H 08/01/18 02:58 Serum Osmolality 274.8 mOsm/L (275-295) L 08/01/18 02:58 Lactic Acid 1.1 mmol/L (0.5-2.2) 08/01/18 02:58 Calcium 8.5 mg/dL (8.4-10.2) 08/01/18 02:58 Total Bilirubin 1.2 mg/dL (0.2-1.0) H 08/01/18 02:58 AST 36 IU/L (10-42) 08/01/18 02:58 ALT 29 IU/L (10-60) 08/01/18 02:58 Alkaline Phosphatase 75 IU/L (42-121) 08/01/18 02:58 Creatine Kinase 66 IU/L (38-174) 08/01/18 02:58 CK-MB (CK-2) 0.9 ng/mL (0.0-4.4) 08/01/18 02:58 CK-MB (CK-2) % Not Reportable 08/01/18 02:58 Troponin I 0.10 ng/mL (0.01-0.05) H* 08/01/18 05:07 Serum Total Protein 7.2 gm/dL (6.4-8.2) 08/01/18 02:58 Albumin 3.9 g/dl (3.2-5.5) 08/01/18 02:58 Globulin 3.3 gm/dL (2.3-3.5) 08/01/18 02:58 Albumin/Globulin Ratio 1.2 (1.1-1.9) 08/01/18 02:58 Patient Name: ELISEO CASTILLO Gender: Male Date of : 1935 Referring Physician: CHU HALEY Organization: [facility] Accession Number: [id number] Requested Date: August 01, 2018 02:46 Report Status: Final Requested Procedure: 1 Procedure Description: Chest,2 Views Modality: CR Findings Reporting MD: Laz Spears Fellow MD: Not available Dictation Time: Architect: Not available Crown Perforator Operator Date: EXAM DESCRIPTION: Chest,2 Views CLINICAL HISTORY: 83 years Male, hypoxia cough COMPARISON: Chest x-ray August 13, 2017 FINDINGS: No consolidation. No pneumothorax. No significant pleural effusion. Emphysematous changes again noted. Cardiac silhouette appears normal in size. Aortic atherosclerosis present. Osseous structures are unremarkable. IMPRESSION: No acute findings. - EKG/XRAY/CT EKG: Sinus, nonspecific ST T wave Chg Comments: frequent PVCS compared to bigeminy in 08/13/17 Departure - Departure Clinical Impression: Elevated troponin, Influenza Disposition: Transfer to Hospital Condition: Fair Departure Forms: ED Discharge - Pt. Copy, Patient Portal Self Enrollment Referrals: NAVID JONES MD [Primary Care Provider] - 1-2 Weeks Home Medications: Ambulatory Orders B-Complex Vitamins [Vitamin B Complex] 1 tab PO DAILY 05/04/17 Calcium W/ Magnesium [Oyster Shell Calcium/Magn 250-155 mg] 2 tab PO DAILY 05/04/17 Metoprolol Tartrate 12.5 mg PO BID 05/04/17 Multiple Vitamins W/ Minerals [Therapeutic Multi Vitamin] 1 tab PO DAILY 05/04/17 Niacin ER 500 mg PO BID 05/04/17 Phytosterol Esters 1 tablet PO BID 05/04/17 Tamsulosin [Flomax] 0.4 mg PO QD 05/04/17 Pantoprazole Tablet [Protonix] 40 mg PO DAILY 05/26/17 Ferrous Gluconate 324 mg PO BID 05/27/17 Levetiracetam 500 mg PO BIDFD 05/27/17 Enalapril Maleate 5 mg PO DAILY 08/01/18 Transfer to Outside Facility - Transfer Information Accepting Facility: [facility] Reason for Transfer: specialized care not available
[2018-08-01] MEDS ORDERED: SODIUM CHLORIDE 0.9% 500ML 500 ML IVS ONE (02:57)
[2018-08-01] MEDS ORDERED: ACETAMINOPHEN 500 MG TAB PO ONE (03:25)
--- NOTE | 2018-08-01 03:47 | RAD ---
EXAM DESCRIPTION: Chest,2 Views CLINICAL HISTORY: 83 years Male, hypoxia cough COMPARISON: Chest x-ray August 13, 2017 FINDINGS: No consolidation. No pneumothorax. No significant pleural effusion. Emphysematous changes again noted. Cardiac silhouette appears normal in size. Aortic atherosclerosis present. Osseous structures are unremarkable. IMPRESSION: No acute findings. Electronically signed by: Laz Spears MD 08/01/2018 3:45 AM ROOM MAID
[2018-08-01] MEDS ORDERED: OSELTAMIVIR 75 MG CAP PO ONE (04:33)
[2018-08-01 06:38] VITALS: BP 110/61; TEMP 100.4; O2SAT 97
== END 2018-08-01 07:00 | disposition short-term general hospital (02) ==
LOC: ER 02:19
DX: J11.1 Influenza due to unidentified influenza virus with other respiratory manifestations (principal); R79.89 Other specified abnormal findings of blood chemistry; I49.3 Ventricular premature depolarization; I25.2 Old myocardial infarction; I10 Essential (primary) hypertension; Z85.038 Personal history of other malignant neoplasm of large intestine; Z86.73 Personal history of transient ischemic attack (TIA), and cerebral infarction without residual deficits; Z87.891 Personal history of nicotine dependence; Z79.899 Other long term (current) drug therapy
CPT/HCPCS: 71046; 80053; 82550; 82553; 83605; 84484; 85025; 87502; 93005; 94640; J7040; J7620

== ENCOUNTER → 2018-08-05 | Outpatient (CLI) | payer MEDICARE, OTHER ==
--- NOTE | 2018-08-05 13:09 | RAD ---
Frontal, lateral, and oblique views of the left hand. Indication:PAIN IN LEFT HAND Comparison: None. Impression: Mildly comminuted, predominantly transverse fracture of the distal shaft of the fifth metacarpal noted with moderate volar angulation of the distal fracture fragment. Associated soft tissue swelling present. Electronically signed by: Lazaro Daugherty MD 08/05/2018 1:06 PM [facility]
--- NOTE | 2018-08-05 13:10 | RAD ---
Single frontal view pelvis Indication: PAIN IN LEFT HIP Comparison: None. Impression: No acute pelvic fracture identified. Evaluation for fracture is limited given the degree of osteopenia. If high clinical concern for acute fracture, correlation with MRI recommended given its greater sensitivity in the osteopenic patient. If the patient cannot tolerate MRI imaging or more urgent imaging is required, CT could be performed, however it is less sensitive in the osteopenic patient when compared to MRI. Mild bilateral hip osteoarthritis. Lower lumbar disc disease. Osteopenia. If this is a new finding, DEXA scan recommended as well as evaluation for possible osteoporosis treatment. Electronically signed by: Lazaro Daugherty MD 08/05/2018 1:08 PM [facility]
--- NOTE | 2018-08-05 13:11 | RAD ---
EXAM DESCRIPTION: Knee,Left Complete CLINICAL HISTORY: PAIN IN LEFT KNEE COMPARISON: None. FINDINGS: 4 standing views of the left knee show no acute fracture, focal bone destruction, or joint dislocation. Severe narrowing of the medial tibiofemoral compartment with mild joint line osteophytes are seen. Tiny posterior superior osteophyte of the patella is seen. No joint effusion. Moderate vascular calcifications are seen. IMPRESSION: Severe medial tibiofemoral compartment osteoarthritic changes of the left knee. Mild osteoarthritic changes of the patellofemoral compartment. Electronically signed by: Cisco Colmenares MD 08/05/2018 1:09 PM [facility]
== END ==
LOC: RAD 09:40
PROVIDERS: ATTEND Orthopaedic Surgery
DX: S62.307A Unspecified fracture of fifth metacarpal bone, left hand, initial encounter for closed fracture (principal); M16.0 Bilateral primary osteoarthritis of hip; M17.12 Unilateral primary osteoarthritis, left knee; M51.36 Other intervertebral disc degeneration, lumbar region; M25.562 Pain in left knee; M25.552 Pain in left hip

== ENCOUNTER 2018-08-10 12:45 | Inpatient (IN) | payer MEDICARE, OTHER ==
--- NOTE | 2018-08-10 13:01 | HP ---
SUPERVISING PHYSICIAN: Demarco Moran MD CHIEF COMPLAINT: Pneumonia post influenza infection. HISTORY OF PRESENT ILLNESS: Mr. Gutierres is an 83-year-old male patient who was just recently in the hospital at [facility] on 08/01/18, discharged on 08/03/18. He was initially sent there from the Emergency Room for elevated troponin and was found to have positive influenza A. He was treated at [facility] with Tamiflu and empiric antibiotics. He also sustained a fifth metacarpal fracture on the left hand. He was doing fairly well after discharge on 08/03/18 and was to see Dr. Moran in followup today. In the clinic, the patient was found to be significantly worse with a cough, increasing sputum production, exertional dyspnea. A chest x-ray, two-view, was completed and showed in the interval between discharge and today had developed a right middle lobe pneumonia. Given that he had developed a hospital acquired pneumonia after recently being in the hospital and post influenza, Dr. Moran requested the patient be directly admitted for ongoing treatment of healthcare acquired pneumonia secondary to a recent hospitalization and influenza A infection. The patient was admitted in stable condition. PAST MEDICAL HISTORY: 1. Coronary artery disease. 2. 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 3. Past history of gastrointestinal bleed due to severe duodenitis and chronic ulcer compounded by aspirin and Xarelto from knee replacement, requiring transfusion. 4. Obstructive sleep apnea. 5. History of colon cancer diagnosed in 2001 with colon resection in 2002. PAST SURGICAL HISTORY: 1. Right total knee arthroplasty. 2. Tonsillectomy and adenoidectomy. 3. Cholecystectomy in 2007. 4. Colon resection in 2002. 5. Coronary artery stent placement. HOME MEDICATIONS: 1. Ferrous gluconate 748 mg daily. 2. Calcium with magnesium 2 tablets daily. 3. Niacin 1000 mg daily. 4. Multivitamin 1 tablet daily. 5. Keppra 500 mg b.i.d. 6. Phytosterol esters 1 tablet b.i.d. 7. Flomax 0.4 mg at bedtime. 8. Metoprolol tartrate 25 mg b.i.d. 9. Enalapril 5 mg daily. 10. Vitamin B complex 1 tablet daily. ALLERGIES: NO KNOWN DRUG ALLERGIES. FAMILY HISTORY: Father is at age 73 secondary to colon cancer. Mother secondary to complications from diabetes. 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 He attended [employer]. He lives in [place] where he practiced for multiple years and was the [employer] [facility] lawyer for many years. He worked for [employer] in [place]. He is . He did smoke tobacco, but quit in 1998 and drinks on a very rare social basis. REVIEW OF SYSTEMS: CONSTITUTIONAL: Positive for fever, weakness, chills. HEENT: Negative for sore throats, earaches, nasal congestion. CARDIOVASCULAR: Negative for chest pain, orthopnea palpitations or syncopal episodes. GASTROINTESTINAL: Negative for nausea, vomiting, diarrhea, hematochezia, abdominal pain, melena or other bowel changes. GENITOURINARY: Negative for dysuria, hematuria, polyuria or other urinary symptoms. MUSCULOSKELETAL: Positive for back pain. INTEGUMENTARY: Negative for rashes, lesions, moles, unexplained skin changes. NEUROLOGIC: Positive for ongoing weakness, but no focal deficits. Negative for syncopal episodes, dizziness or any recent seizure activity. PHYSICAL EXAMINATION: VITAL SIGNS: Temperature on admission 98.3. Pulse 71. Blood pressure in clinic prior to admission showed he was hypotensive at 80/50, heart rate 87, saturation 93% on room air. Admission weight 88.5 kg. GENERAL: The patient is ill appearing, very unkept, but appears to be in no acute distress. He does appear somewhat dehydrated. HEENT: Tympanic membranes clear bilaterally. Oropharynx is notable dry mucous membranes. No lesions or rashes. Posterior pharynx pink. NECK: Supple, nontender with full range of motion. No jugular venous distention noted. RESPIRATORY: Lungs diminished on the right compared to the left with notable crackles and rhonchi heard throughout the right upper lobe, but no obvious wheezing. CARDIOVASCULAR: Regular rate and rhythm without any appreciable murmurs, gallops, or rubs. ABDOMEN: Soft, nontender. Positive bowel sounds. EXTREMITIES: There is no cyanosis, clubbing or edema. On his left upper extremity, hand, he has a splint and there is an ecchymotic lesion on the distal three fingers, but no obvious deformity. Bilateral radial pulses and distally were 2+. Good capillary refill. NEUROLOGIC: The patient is alert and oriented times three. Cranial nerves II- XII are grossly intact. Facial features are symmetrical. Extraocular movements are within normal limits. There is no nystagmus noted. LABORATORY: CBC showed leukocytosis of 14,700, hemoglobin 14, hematocrit 41.9, platelet count 172,000 with left shift on differential. Chemistries show hyponatremia with sodium 129, potassium down to 3.5, BUN 24, creatinine 1.23, lactic acid 1.1, calcium 8.1, magnesium 1.8, total bilirubin slightly elevated at 1.7. ALT, AST all within normal limits. BNP pending. Urinalysis pending. MICROBIOLOGY: Blood cultures pending. Sputum culture pending. Influenza A and B by PCR pending. RADIOLOGY: Two-view chest x-ray in the clinic showed new development of a right middle lobe consolidation consistent with probable pneumonia. Left lung was fairly clear. Awaiting Radiology interpretation. ASSESSMENT: 1. Influenza A with pneumonitis with a developing right middle lobe pneumonia, likely secondary to bacterial infection consistent with a healthcare acquired pneumonia with the patient having recently been in the hospital within the last week and on antibiotics. 2. Moderate dehydration. 3. Hypotension secondary to dehydration with no current signs of sepsis. 4. Electrolyte imbalance with hypokalemia and hyponatremia, uncertain etiology, probably due to underlying dehydration requiring fluid initiation and resuscitation both to reestablish electrolytes and his blood pressure. 5. 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 6. History of coronary artery disease. 7. History of renal stones. PLAN: The patient is going to be admitted directly from the clinic for healthcare acquired pneumonia secondary to a recent influenza A infection. Given he was just recently in the hospital and has significantly deteriorated since discharge with the new interval development of the right middle lobe pneumonia, we will go ahead and start him on fairly aggressive management empirically with cefepime, Levaquin and vancomycin for the first 24 hours. He does have a slight risk for Pseudomonas having been recently in the hospital as well as a MRSA risk due to recent hospitalization. As he shows clinical improvement, certainly we will deescalate antibiotics and as sputum culture becomes available, certainly we will target antibiotic therapy as appropriate. He will be on DVT prophylaxis as per protocol. We will start his home medications once those have been updated and verified as appropriate. He will be on aggressive pulmonary hygiene with DuoNeb q.i.d. treatments. We will provide oxygen as needed. We will check labs in the morning. To address the electrolyte imbalance, we will start him on some IV fluids with normal saline with 20 of potassium running at 110 an hour and will reassess in the morning. We will anticipate length of stay to be 2 to 3 days. Hopefully he will be able to discharge by . Until he can progress to outpatient management, we will continue to monitor and treat as needed. [facility][id number] [facility]
[2018-08-10] MEDS ORDERED: SODIUM CHLORIDE 0.9% (FLUSH) 10 ML SYG IV PRN (13:17)
[2018-08-10] MEDS ORDERED: ALBUTEROL SULFATE 2.5 MG/3 ML VIAL NEB PRN (13:17)
[2018-08-10] MEDS ORDERED: ONDANSETRON INJ 4 MG/2 ML VIAL IV PRN (13:17)
[2018-08-10] MEDS ORDERED: MAGNESIUM HYDROXIDE 30 ML UD PO PRN (13:17)
[2018-08-10] MEDS ORDERED: VANCOMYCIN PER PHARMACY INJ SCH (13:30)
[2018-08-10] MEDS: IV SET AND CAP CHANGE INJ INJ SCH (13:30)
[2018-08-10] MEDS: IPRATROPIUM/ALBUTEROL 3 ML VIAL INH SCH ×3 (13:41→20:25)
[2018-08-10] MEDS ORDERED: CEFEPIME 2 GM VIAL ONE ×2 (14:15→19:11)
[2018-08-10] MEDS ORDERED: SODIUM CHL 0.9% 50ML MIN-BAG+ 50 ML IVPB ONE ×2 (14:15→19:10)
[2018-08-10] MEDS: CEFEPIME 2 GM in SODIUM CHL 0.9% 50ML MIN-BAG+ 50 ML IVPB SCH (14:36)
[2018-08-10] MEDS: levoFLOXacin 750MG IV 750 MG in PREMIX BAG 1 BAG IVPB SCH (15:10)
[2018-08-10] MEDS ORDERED: VANCOMYCIN HCL INJ 500 MG VIAL ONE (16:28)
[2018-08-10] MEDS ORDERED: SODIUM CHLORIDE 0.9% 250ML 250 ML ONE (16:29)
[2018-08-10] MEDS ORDERED: VANCOMYCIN HCL INJ 1,000 MG VIAL IVPB ONE (16:29)
[2018-08-10] MEDS: VANCOMYCIN HCL INJ 1,000 MG, VANCOMYCIN HCL INJ 500 MG in SODIUM CHLORIDE 0.9% 250ML 25... IVPB SCH (16:56)
[2018-08-10] MEDS ORDERED: PANTOPRAZOLE SODIUM IV 40 MG VIAL ONE (19:11)
[2018-08-10] MEDS: ACETAMINOPHEN 325 MG TAB PO PRN (19:38)
[2018-08-10] MEDS: IBUPROFEN 400 MG TAB PO PRN (22:08)
[2018-08-11] MEDS: CEFEPIME 2 GM in SODIUM CHL 0.9% 50ML MIN-BAG+ 50 ML IVPB SCH ×2 (01:34→13:27)
[2018-08-11] MEDS: PANTOPRAZOLE SODIUM IV 40 MG VIAL IV SCH (06:09)
--- NOTE | 2018-08-11 07:21 | RAD ---
EXAM: Two view chest. INDICATION: Pneumonia. COMPARISON: Chest x-ray: 08/01/2018. FINDINGS: There is a right upper lobe airspace opacity. The heart size is stable. There is no pneumothorax or pleural effusion. The bones are unchanged. IMPRESSION: Right upper lobe pneumonia Electronically signed by: Rafael Marinelli MD 08/11/2018 7:19 AM CAMPUS COORDINATOR Workstation: [employer]
[2018-08-11] MEDS: IPRATROPIUM/ALBUTEROL 3 ML VIAL INH SCH ×4 (08:46→20:14)
[2018-08-11] MEDS: levETIRAcetam 250 MG TAB PO SCH ×2 (12:19→20:42)
[2018-08-11] MEDS ORDERED: SODIUM CHL 0.9% 50ML MIN-BAG+ 50 ML IVPB ONE ×2 (12:23→18:58)
[2018-08-11] MEDS ORDERED: CEFEPIME 2 GM VIAL ONE ×2 (12:23→18:58)
[2018-08-11] MEDS: KCL 40MEQ/NS 1,000 ML IVS PRN ×2 (12:30→23:47)
[2018-08-11] MEDS: levoFLOXacin 750MG IV 750 MG in PREMIX BAG 1 BAG IVPB SCH (14:03)
[2018-08-11] MEDS ORDERED: VANCOMYCIN HCL INJ 500 MG VIAL ONE (16:00)
[2018-08-11] MEDS ORDERED: SODIUM CHLORIDE 0.9% 250ML 250 ML ONE (16:00)
[2018-08-11] MEDS ORDERED: VANCOMYCIN HCL INJ 1,000 MG VIAL IVPB ONE (16:00)
[2018-08-11] MEDS: VANCOMYCIN HCL INJ 1,000 MG, VANCOMYCIN HCL INJ 500 MG in SODIUM CHLORIDE 0.9% 250ML 25... IVPB SCH (16:57)
[2018-08-11] MEDS ORDERED: TAMSULOSIN 0.4 MG CAP ONE (18:57)
[2018-08-11] MEDS ORDERED: ENOXAPARIN SODIUM 40 MG/0.4 ML SYG SUBCU ONE (18:58)
[2018-08-11] MEDS: TAMSULOSIN 0.4 MG CAP PO SCH (20:42)
[2018-08-11] MEDS: ENOXAPARIN SODIUM 40 MG/0.4 ML SYG SUBCU SCH (20:42)
--- NOTE | 2018-08-11 21:41 | PN ---
DATE: 08/11/18 SUPERVISING PHYSICIAN: Shade Moran M.D. SUBJECTIVE: The patient still feels fairly poorly today. He is coughing and finally starting to get some production. He still has some shortness of breath with exertion. He has had no chest pains but continues to have some chills but actually no fevers. His influenza test was actually negative. We did discuss about increasing the progressive treatment of his chest percussive therapy to see if we could loosen some mucous up, and he is in agreement with that plan. OBJECTIVE: VITAL SIGNS: Temperature 97, pulse 52, blood pressure 110/58, respirations 20, satting 96% on 2 liters nasal cannula at rest. I's and O's show a negative balance of 460 with 240 in, 700 out. Weight 88.8 kg. GENERAL: The patient still appears quite ill and exhausted, but he is in no acute distress. He is alert. CHEST: Lung sounds remain diminished with a few continued crackles on the right side more prominently heard on the lateral posterior aspect, the left is fairly clear, just diminished slightly towards the base. HEART: Regular rate and rhythm. ABDOMEN: Soft, non-tender. Positive bowel sounds. EXTREMITIES: Without any edema. NEUROLOGIC: He is alert and oriented times three. LABORATORY: White count has improved slightly down to 11,600, hemoglobin 12.6, hematocrit 37.1, platelet count 152,000. Differential does show a continued left shift. Chemistries show a slightly decreased sodium at 128 as well as potassium 3.4, carbon dioxide is down to 20 and his BUN is up to 25, creatinine is at 1.33 with calcium 7.7. MICROBIOLOGY: Blood cultures remain negative at 24 hours. Influenza A was negative. Influenza B was negative, all by PCR. RADIOLOGY: Chest x-ray today shows a right upper lobe pneumonia. ASSESSMENT: 1. Influenza A with pneumonitis and developing right middle and right upper lobe pneumonia with concerns for bacterial infection consistent with healthcare acquired pneumonia with the patient just being recently released from the hospital within the last week and on continued antibiotics. 2. Moderate dehydration, continuing to need fluids. 3. Persistent hyponatremia and hypokalemia requiring ongoing replacement secondary to continued dehydration. 4. Hypotension secondary to dehydration improving with fluids, but no current signs of sepsis. 5. 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 6. History of coronary artery disease. 7. History of renal stones. PLAN: Given that he has not really made that big of an improvement overnight, will go ahead and increase his bronchial hygiene, chest percussive therapy and DuoNeb treatments. I have encouraged him to get up and ambulate. Will continue with current antibiotic regimen for at least another 24 hours and as he improves certainly will start to deescalate that regimen. He still has a high risk for Pseudomonas infection as he was previously in the hospital as well as MRSA. He remains on DVT prophylaxis. We have updated and restarted his home medications. Will start him back on some fluids, again with normal saline and 40 of potassium, and will up it to 125 per hour and reassess in the morning with a BMP. Will hold off on the chest x-ray as no new developments were seen today. Until the patient can transfer to outpatient management on oral medications, will continue to monitor and treat as needed. #[id number] [facility]
[2018-08-11] MEDS: ACETAMINOPHEN 325 MG TAB PO PRN (23:52)
[2018-08-12] MEDS: CEFEPIME 2 GM in SODIUM CHL 0.9% 50ML MIN-BAG+ 50 ML IVPB SCH ×2 (02:14→13:38)
[2018-08-12] MEDS: PANTOPRAZOLE SODIUM IV 40 MG VIAL IV SCH (06:15)
[2018-08-12] MEDS: IPRATROPIUM/ALBUTEROL 3 ML VIAL INH SCH ×4 (07:48→20:00)
[2018-08-12] MEDS: NIACIN 500 MG TAB PO SCH (08:19)
[2018-08-12] MEDS: IBUPROFEN 400 MG TAB PO PRN (08:20)
[2018-08-12] MEDS: levETIRAcetam 250 MG TAB PO SCH ×2 (08:20→20:52)
[2018-08-12] MEDS: CALCIUM CARBONATE-VITAMIN D 500 MG TAB PO SCH (08:24)
[2018-08-12] MEDS ORDERED: CEFEPIME 2 GM VIAL ONE ×2 (13:25→19:27)
[2018-08-12] MEDS ORDERED: SODIUM CHL 0.9% 50ML MIN-BAG+ 50 ML IVPB ONE ×2 (13:25→19:27)
[2018-08-12] MEDS: levoFLOXacin 750MG IV 750 MG in PREMIX BAG 1 BAG IVPB SCH (14:28)
[2018-08-12] MEDS ORDERED: methylPREDNISolone SODIUM SUC 125 MG/2 ML VIAL IV ONE (14:48)
--- NOTE | 2018-08-12 15:11 | PN ---
SUPERVISING PHYSICIAN: Demarco Moran MD DATE: 08/12/18 SUBJECTIVE: The patient is sitting up in bed. He continues complaints of shortness of breath with any exertion, but he is feeling some better. He denies any nausea, vomiting, chest pain, constipation, diarrhea. OBJECTIVE: VITAL SIGNS: Temperature 98.3. Heart rate 60. Blood pressure 114/67. Respiratory rate 22 to 24. O2 saturation 93% on room air. RESPIRATORY: A few scattered rhonchi with expiratory wheezing throughout the apices. He is diminished at the bases. He is tachypneic. He has to speak in short phrases due to his dyspnea. CARDIAC: Regular rate and rhythm. GASTROINTESTINAL: Abdomen is soft, nondistended, nontender. Bowel sounds are positive. NEUROLOGIC: Awake, alert and oriented times three. LABORATORY: WBCs 9.8 with left shift on differential. Hemoglobin 11.7, hematocrit 34.7. Sodium 132, potassium 4.1, chloride 105, carbon dioxide 20, BUN 20, creatinine 1.14, calcium 7.7, bilirubin 1.1. Preliminary blood cultures show no growth after 48 hours. All other labs and films have been reviewed via the EMR. ASSESSMENT: 1. Influenza A with pneumonitis and developing right middle and right upper lobe pneumonia with concerns for bacterial infection consistent with healthcare acquired pneumonia. The patient was just recently released from the hospital within the last week and has been on continued antibiotics. 2. Moderate dehydration. 3. Persistent hyponatremia and hypokalemia. He still has mildly low sodium, but his potassium has normalized. 4. Hypotension secondary to dehydration, improved. 5. 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 6. History of coronary artery disease. 7. History of renal stones. PLAN: We will continue present supportive care. He feels somewhat better than he has since his admission and we will continue aggressive pulmonary hygiene. I have encouraged him to walk in the hallways. He has done an ambulation study today and he would qualify for home oxygen at this point, but we will do another ambulation study tomorrow. I discontinued his IV fluids. He will also have lab and chest x-ray tomorrow. I started Mucinex as well as one dose of Solu-Medrol. I have ordered physical therapy and to ambulate 4 times daily. Hopefully with aggressive pulmonary hygiene and continued antibiotics as well as monitoring his culture, we can anticipate discharge in the next one to two days. We will watch him clinically and continue to monitor the patient closely and follow as needed. Dr. Moran is the collaborating physician and available for consultation. [facility][id number] [facility]
[2018-08-12] MEDS: guaiFENesin ER TAB 600 MG TAB PO SCH ×2 (15:53→20:52)
[2018-08-12] MEDS ORDERED: SODIUM CHLORIDE 0.9% 250ML 250 ML ONE (17:45)
[2018-08-12] MEDS ORDERED: VANCOMYCIN HCL INJ 1,000 MG VIAL IVPB ONE (17:45)
[2018-08-12] MEDS ORDERED: VANCOMYCIN HCL INJ 500 MG VIAL ONE (17:45)
[2018-08-12] MEDS: VANCOMYCIN HCL INJ 1,000 MG, VANCOMYCIN HCL INJ 500 MG in SODIUM CHLORIDE 0.9% 250ML 25... IVPB SCH (17:56)
[2018-08-12] MEDS: TAMSULOSIN 0.4 MG CAP PO SCH (20:51)
[2018-08-12] MEDS: ENOXAPARIN SODIUM 40 MG/0.4 ML SYG SUBCU SCH (20:52)
[2018-08-13] MEDS: CEFEPIME 2 GM in SODIUM CHL 0.9% 50ML MIN-BAG+ 50 ML IVPB SCH ×2 (01:13→14:06)
[2018-08-13] MEDS: PANTOPRAZOLE SODIUM IV 40 MG VIAL IV SCH (06:15)
--- NOTE | 2018-08-13 07:22 | RAD ---
EXAM DESCRIPTION: Chest,2 Views CLINICAL HISTORY: pna. 83-year-old male with pneumonia. COMPARISON: The most recent comparison is August 11, 2018. Multiple comparisons dating back to April 24, 2017. FINDINGS: Frontal and lateral views of the thorax. Right upper lobe airspace opacities present consistent with pneumonia. This is superimposed on advanced emphysema. Heart size within normal limits. Osseous structures stable. IMPRESSION: Stable right upper lobe pneumonia superimposed on advanced emphysema. Electronically signed by: Thom Inman MD 08/13/2018 7:[address] [facility]
[2018-08-13] MEDS: levETIRAcetam 250 MG TAB PO SCH ×2 (08:18→20:58)
[2018-08-13] MEDS: CALCIUM CARBONATE-VITAMIN D 500 MG TAB PO SCH (08:18)
[2018-08-13] MEDS: NIACIN 500 MG TAB PO SCH (08:18)
[2018-08-13] MEDS: guaiFENesin ER TAB 600 MG TAB PO SCH ×2 (08:19→20:58)
[2018-08-13] MEDS: SODIUM CHLORIDE 0.9% (FLUSH) 10 ML SYG IV SCH ×2 (08:24→20:59)
[2018-08-13] MEDS: IPRATROPIUM/ALBUTEROL 3 ML VIAL INH SCH ×4 (08:30→21:38)
[2018-08-13] MEDS: IV SET AND CAP CHANGE INJ INJ SCH (13:24)
[2018-08-13] MEDS ORDERED: CEFEPIME 2 GM VIAL ONE (14:04)
[2018-08-13] MEDS ORDERED: SODIUM CHL 0.9% 50ML MIN-BAG+ 50 ML IVPB ONE (14:04)
[2018-08-13] MEDS: levoFLOXacin 750MG IV 750 MG in PREMIX BAG 1 BAG IVPB SCH (14:46)
[2018-08-13] MEDS ORDERED: BIFIDOBACTERIUM INFANTIS 4 MG CAP ONE (17:14)
[2018-08-13] MEDS ORDERED: CEFDINIR 300 MG CAP ONE (17:15)
[2018-08-13] MEDS: BIFIDOBACTERIUM INFANTIS 4 MG CAP PO SCH (20:58)
[2018-08-13] MEDS: TAMSULOSIN 0.4 MG CAP PO SCH (20:58)
[2018-08-13] MEDS: ENOXAPARIN SODIUM 40 MG/0.4 ML SYG SUBCU SCH (20:58)
[2018-08-13] MEDS: CEFDINIR 300 MG CAP PO SCH (20:59)
--- NOTE | 2018-08-13 21:26 | PN ---
DATE: 08/13/18 SUPERVISING PHYSICIAN: Shade Moran M.D. SUBJECTIVE: The patient is sitting up in his bed. He complains of some shortness of breath and weakness when he walks. He does feel better than he did on admission. He feels that he is having a difficult time ambulating and needs a walker. Earlier today he walked with PT and he actually did fairly well, but he is somewhat afraid to go home due to that weakness. Otherwise he denies chest pain, nausea, vomiting, diarrhea or constipation. OBJECTIVE: VITAL SIGNS: Temperature 97.9, heart rate 70, blood pressure 106/58, respiratory rate 18, O2 sat 92% on room air. RESPIRATORY: Scattered wheezes in the right upper and lower lung kirkpatrick with scattered rhonchi throughout. He is tachypneic at times and he does have to speak in short phrases due to his dyspnea. CARDIAC: Regular rate and rhythm. GASTROINTESTINAL: Abdomen is soft, nondistended, non-tender. Bowel sounds are positive. NEUROLOGIC: He is awake, alert and oriented times three. LABORATORY: WBCs are 5.8. He does have a left shift on his differential. Hemoglobin 12.1, hematocrit 35.6. Sodium 134, potassium 4, chloride 107, carbon dioxide 19. BUN 16, creatinine 1.01. Blood glucose 177 with calcium 8.1, magnesium 1.9. Liver enzymes are basically within normal limits. Preliminary blood cultures show no growth after 3 days. Chest x-ray per radiology interpretation showed stable right upper lobe pneumonia superimposed on advanced emphysema. All other labs and films have been reviewed via the EMR. ASSESSMENT: 1. Influenza A with pneumonitis and developing right middle and right upper lobe pneumonia with concerns for bacterial infection consistent with healthcare acquired pneumonia. The patient was just recently released from the hospital within the last week and has been on continued antibiotics. 2. Moderate dehydration that has improved. 3. Electrolyte imbalance that has improved. 4. Hypotension secondary to dehydration, improved. 5. 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 6. History of coronary artery disease. 7. History of renal stones. PLAN: We will continue present supportive care. I have encouraged him to ambulate as much as possible. I have ordered ambulation 4 times daily with a walker. Will continue with his present antibiotics and monitor cultures. At discharge he will need [facility] with physical therapy. I am somewhat concerned about him discharging home as I believe that he is going to be unable to care for himself and his , but at this point he will not discuss any usp care other than going home. His is in the hospital in [place] and she will be discharged tomorrow. He will need close followup with Dr. Moran and it may even be needed that APS be involved at some point. I have ordered routine lab for in the morning. Will continue to monitor him closely and follow as needed. Dr. Moran is the collaborating physician available for consultation. #[id number] [facility]
[2018-08-14] MEDS ORDERED: PANTOPRAZOLE SODIUM TAB 40 MG PO SCH (06:30)
[2018-08-14] MEDS: NIACIN 500 MG TAB PO SCH (07:49)
[2018-08-14] MEDS: IPRATROPIUM/ALBUTEROL 3 ML VIAL INH SCH (08:20)
[2018-08-14] MEDS ORDERED: levoFLOXacin 500 MG TAB PO SCH (09:00)
[2018-08-14] MEDS: BIFIDOBACTERIUM INFANTIS 4 MG CAP PO SCH (09:03)
[2018-08-14] MEDS: levETIRAcetam 250 MG TAB PO SCH (09:03)
[2018-08-14] MEDS: CEFDINIR 300 MG CAP PO SCH (09:04)
[2018-08-14] MEDS: guaiFENesin ER TAB 600 MG TAB PO SCH (09:04)
[2018-08-14] MEDS: CALCIUM CARBONATE-VITAMIN D 500 MG TAB PO SCH (09:08)
[2018-08-14] MEDS: SODIUM CHLORIDE 0.9% (FLUSH) 10 ML SYG IV SCH (09:11)
[2018-08-14 10:19] VITALS: BP 118/74; TEMP 97.5; O2SAT 98
--- NOTE | 2018-08-14 17:40 | DS ---
SUPERVISING PHYSICIAN: Shade Moran M.D. DISCHARGE DIAGNOSIS: 1. Influenza A with pneumonitis and developing right middle lobe and right upper lobe pneumonia with concerns for bacterial infection consistent with healthcare acquired pneumonia. The patient was recently released from the hospital within the last week and has been on continued antibiotics. 2. Moderate dehydration that has improved. 3. Electrolyte imbalance that has improved. 4. Hypotension secondary to dehydration, improved. 5. 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 6. History of coronary artery disease. 7. History of renal stones. HISTORY OF PRESENT ILLNESS: This is an 83-year-old male patient who was just recently in the hospital at [facility] on 08/01/18 and was discharged on 08/03/18. He was sent there from the Emergency Room for an elevated troponin and was found to have positive influenza A. He was treated at [facility] with Tamiflu and empiric antibiotics. He also sustained a fifth metacarpal fracture on the left hand. He was doing fairly well after discharge on 08/03/18. He was scheduled to see Dr. Moran on the date of admission, 08/10/18. In the clinic, he was found to be significantly worse with a cough, increasing sputum production and exertional dyspnea. His chest x-ray showed a right middle lobe pneumonia. Given that he had recently been in the hospital for Influenza, Dr. Moran requested that the patient be directly admitted to the hospital for treatment of healthcare acquired pneumonia secondary to a recent hospitalization and influenza A infection. He was admitted to the hospital in stable condition. HOSPITAL COURSE: Blood cultures were drawn and he was treated for right middle lobe pneumonia with Cefepime, Levaquin and vancomycin. He also had aggressive pulmonary hygiene. There was a slight risk for Pseudomonas having been recently in the hospital as well as an MRSA risk, but he responded well to the antibiotic therapy as well as the aggressive pulmonary hygiene. He had been placed on Lovenox for DVT prophylaxis and his home medications were restarted. He was also given nebulizer treatments. His improvement was slow as he had several days of feeling rather poorly. He was given some Guaifenesin for his cough. Due to his slow improvement he was continued on the same antibiotic regimen for 24 more hours. He was also given some additional fluid. With the aggressive pulmonary hygiene he slowly improved to the point that today he will be discharged in stable condition. LABORATORY: His WBCs on admission were 14,700. They slowly improved over the next 2 days. His final WBCs were normal at 5,800. Hemoglobin and hematocrit remained stable at 12.1 and 35.6. He does have a continued left shift on differential. Sodium initially was low at 129 but stabilized to 134. Potassium was low initially at 3.5 and he received supplementation, and it improved to 4. Chloride also was low at 97 on admission and improved to 107. Creatinine was as high as 1.33 but is now 1.01. He continues to have a slightly low calcium at 8.1. He did have some hyperbilirubinemia with his admitting bilirubin at 1.7 and it stabilized at 0.7. Urinalysis was unremarkable. Blood cultures show no growth after 3 days. Preliminary sputum culture shows no growth after 12 hours of incubation. Influenza A and B by PCR were both negative. RADIOLOGY: Last chest x-ray showed stable right upper lobe pneumonia superimposed on advanced emphysema. DISCHARGE PLAN: The patient will be discharged home in stable condition. He will have [facility] with physical therapy. He has a followup appointment with Dr. Moran on 08/18/18 at 10:45 AM. He will be discharged on his home medications with the addition of Mucinex, Align, Cefdinir and Levaquin. It is to be noted that his is in the hospital and the child welfare social worker talked to the patient at length about nursing home care. Mr. Gutierres is quite weak and he will required physical therapy, but he will need close monitoring of his care as he has a self care deficit that may require different living arrangements. He is to resume his usual diet. He is to increase his activity as tolerated and as per Physical Therapy. He is to return to the hospital or call Dr. Moran's office for any problems or complications. DISCHARGE MEDICATIONS: 1. Flomax. 2. Phytosterol esters. 3. Niacin. 4. Multivitamins with minerals. 5. Calcium with magnesium. 6. B complex vitamins. 7. Levetiracetam. 8. Align. 9. Cefdinir. 10. Guaifenesin. 11. Levofloxacin. [facility][id number] [facility]
== END 2018-08-14 11:20 | disposition home health service (06) | DRG 194 ==
LOC: MS 12:45
PROVIDERS: ADMIT Nurse Practitioner Family; ATTEND Family Medicine
DX: J15.9 Unspecified bacterial pneumonia (principal); E87.1 Hypo-osmolality and hyponatremia; J10.00 Influenza due to other identified influenza virus with unspecified type of pneumonia; Y95 Nosocomial condition; E86.0 Dehydration; I95.9 Hypotension, unspecified; E87.6 Hypokalemia; G40.909 Epilepsy, unspecified, not intractable, without status epilepticus; I25.10 Atherosclerotic heart disease of native coronary artery without angina pectoris; G47.33 Obstructive sleep apnea (adult) (pediatric); S62.307D Unspecified fracture of fifth metacarpal bone, left hand, subsequent encounter for fracture with routine healing; Z79.899 Other long term (current) drug therapy; Z96.651 Presence of right artificial knee joint; Z95.5 Presence of coronary angioplasty implant and graft; Z90.49 Acquired absence of other specified parts of digestive tract; Z85.038 Personal history of other malignant neoplasm of large intestine; Z87.891 Personal history of nicotine dependence

== ENCOUNTER → 2018-08-10 | Outpatient (CLI) | payer MEDICARE, OTHER | LOC: GMAE 14:33 | PROVIDERS: ATTEND Family Medicine | DX: R06.02 Shortness of breath (principal) ==

== ENCOUNTER → 2018-08-18 | Outpatient (CLI) | payer MEDICARE, OTHER | LOC: RESP 12:38 | PROVIDERS: ATTEND Family Medicine | DX: R00.1 Bradycardia, unspecified (principal) ==

== ENCOUNTER → 2018-08-20 | Outpatient (CLI) | payer MEDICARE, OTHER ==
--- NOTE | 2018-08-20 14:13 | RAD ---
EXAM: Hand,Left 3 Views CLINICAL HISTORY: UNSP FX SECOND MC BONE, LEFT HAND, SUBS FOR FX W R COMPARISON STUDY: August 05, 2018 TECHNICAL: AP, lateral and oblique x-rays of the left hand FINDINGS: The fracture involving the distal shaft of the fifth metacarpal is in similar configuration and alignment compared to the previous study. There is approximate 50% anterior displacement of the distal fracture fragment and anterior angulation at the fracture site. No bridging callus is identified. The remainder the hand is intact. IMPRESSION: Little change in the appearance of the fifth metacarpal fracture. Electronically signed by: Amanuel Saldivar MD 08/20/2018 2:09 PM [facility]
== END ==
LOC: RAD 07:56
PROVIDERS: ATTEND Orthopaedic Surgery
DX: S62.301D Unspecified fracture of second metacarpal bone, left hand, subsequent encounter for fracture with routine healing (principal)

== ENCOUNTER → 2018-09-03 | Outpatient (CLI) | payer MEDICARE, OTHER ==
--- NOTE | 2018-09-03 11:30 | RAD ---
EXAM DESCRIPTION: Hand,Left 3 Views CLINICAL HISTORY: 83 years Male, S62.307D COMPARISON: August 20, 2018 FINDINGS: Again seen is a laterally displaced and moderately angulated fracture involving the fifth metacarpal neck with callus formation at the fracture site, increased from August 20, 2018. The fracture remains only partially united. No new fracture or malalignment. No other significant interval change. IMPRESSION: Slightly displaced and moderately angulated fifth metacarpal neck fracture with interval increase in degree of callus formation. The fracture remains largely nonunited. Electronically signed by: Diallo Forbes MD 09/03/2018 11:27 AM [facility]
== END ==
LOC: RAD 09:19
PROVIDERS: ATTEND Orthopaedic Surgery
DX: S62.337D Displaced fracture of neck of fifth metacarpal bone, left hand, subsequent encounter for fracture with routine healing (principal)

== ENCOUNTER → 2018-09-30 | Outpatient (CLI) | payer MEDICARE, OTHER ==
--- NOTE | 2018-09-30 17:00 | RAD ---
EXAM DESCRIPTION: Hand,Left 3 Views CLINICAL HISTORY: S62.307D COMPARISON: 03 September 2018 TECHNIQUE: 3 views left FINDINGS: A fracture of the distal shaft of the fifth metacarpal is observed. There is dorsal angulation of the distal fracture fragment. Callus formation is observed at the fracture site. No further fracturing is detected. IMPRESSION: A boxer's type fracture of the distal fifth metacarpal is observed. Increasing callus formation is observed at the fracture site. Angulation remains unchanged. Electronically signed by: Juaquin Celestin MD 09/30/2018 4:57 PM CDT
== END ==
LOC: RAD 09:53
PROVIDERS: ATTEND Orthopaedic Surgery
DX: S62.307D Unspecified fracture of fifth metacarpal bone, left hand, subsequent encounter for fracture with routine healing (principal)

== ENCOUNTER → 2019-01-21 | Outpatient (CLI) | payer MEDICARE, OTHER | LOC: LAB.O 09:22 | PROVIDERS: ATTEND Orthopaedic Surgery | DX: Z01.818 Encounter for other preprocedural examination (principal) ==

== ENCOUNTER → 2019-04-25 | Outpatient (CLI) | payer MEDICARE, OTHER | LOC: LAB.O 08:56 | PROVIDERS: ATTEND Orthopaedic Surgery | DX: Z01.818 Encounter for other preprocedural examination (principal) ==

== ENCOUNTER 2019-05-11 05:30 | Inpatient (IN) | payer MEDICARE, OTHER ==
--- NOTE | 2019-05-05 11:11 | HP ---
CHIEF COMPLAINT: Left knee pain. HISTORY OF PRESENT ILLNESS: Mr. Gutierres is an 84-year-old male with a history of severe knee arthritis. He says his pain can radiate up to a 7 at times. It occurs with activities, both during walking and while sitting. He says he has gotten no relief with conservative measures although conservative measures have included use of an assistive device, anti-inflammatories, injection and activity modification. He has associated symptoms including crepitus and mechanical symptoms. Aggravating factors are as above. Because of his failure of conservative measures, he has requested operative intervention. After discussing the risks, benefits and alternatives to operative therapy, he has given informed consent. PAST SURGICAL HISTORY: 1. Right total knee arthroplasty. 2. ORIF of upper extremity fracture. 3. Cholecystectomy. 4. Colectomy. MEDICATIONS: 1. Tamsulosin. 2. Finasteride. 3. Levothyroxine. PAIN CONTRACT: None. ALLERGIES: NO KNOWN DRUG ALLERGIES. CODE STATUS: Full code. IMMUNIZATIONS: Up to date. SOCIAL HISTORY: The patient does not drink, smoke or use any illicit drugs. FAMILY HISTORY: None pertinent to today's complaint. REVIEW OF SYSTEMS: Negative except as indicated in the History of Present Illness. HEENT: The patient reports no symptoms. RESPIRATORY: The patient reports no symptoms. CARDIOVASCULAR: The patient reports no symptoms. GASTROINTESTINAL: The patient reports no symptoms GENITOURINARY: The patient reports no symptoms. MUSCULOSKELETAL: Negative except as noted in History of Present Illness. SKIN: The patient reports no symptoms. NEUROLOGIC: The patient reports no symptoms. PHYSICAL EXAMINATION: VITAL SIGNS: Blood pressure 113/38. Pulse 40. Height 5'10". Weight 188 pounds. MENTAL STATUS: The patient is awake, alert, and is able to give a good history and participate in the physical. The patient is oriented to person, place and time. SKIN: Normal tone and turgor. HEENT: Normocephalic, atraumatic. Pupils equal, round and reactive. Mucosal membranes are moist. NECK: Normal range of motion. No thyromegaly, no lymphadenopathy. CHEST: Normal respiratory excursion. CARDIAC: Regular rate and rhythm. No murmurs, rubs or gallops. MUSCULOSKELETAL: The bilateral upper extremities show full active range of motion without pain. He has intact sensation. There is no malalignment and no deformity. He has 5/5 strength in abduction and forward flexion of the shoulders. [employer] strength is 5/5. He has no malalignment, no crepitus. Cervical spine shows painless range of motion. Skin is intact in the upper extremities. The right lower extremity shows full range of motion of the hip. He has full extension of the knee with a well-healed wound anteriorly. He has no varus or valgus laxity. He has intact sensation. Strength is 5/5. He has no malalignment or deformity. The left lower extremity shows full range of motion of the hip without crepitus or pain. The knee has severe pain. He has pain to palpation and has slightly antalgic gait secondary to pain. He has full range of motion in ankle and digits. He has no varus or valgus laxity. He has negative anterior and negative posterior drawer. There is a minor effusion today. RADIOLOGY: My interpretation of the x-rays shows severe osteoarthritis. ASSESSMENT: 1. Osteoarthritis. PLAN: The plan at this point is for total knee arthroplasty. We have discussed the risks, benefits, and alternatives to that and the patient has given informed consent. [facility][id number] [facility]
[2019-05-11] MEDS ORDERED: ceFAZolin SODIUM 1 GM VIAL ONE ×2 (05:46→06:33)
[2019-05-11] MEDS ORDERED: TRANEXAMIC ACID 1,000 MG/10 ML VIAL ONE ×2 (05:46→05:47)
[2019-05-11] MEDS ORDERED: LACTATED RINGERS 1,000 ML ONE ×2 (05:46→10:00)
[2019-05-11] MEDS ORDERED: SODIUM CHL 0.9% 100ML MINI-BAG 100 ML IVPB ONE (05:46)
[2019-05-11] MEDS ORDERED: VANCOMYCIN HCL INJ 1,000 MG VIAL IVPB ONE ×3 (05:46→19:08)
[2019-05-11] MEDS ORDERED: SODIUM CHLORIDE 0.9% 100ML 100 ML IVPB ONE (05:47)
[2019-05-11] MEDS ORDERED: SODIUM CHLORIDE 0.9% 250ML 250 ML ONE ×3 (05:47→19:07)
[2019-05-11] MEDS ORDERED: ACETAMINOPHEN IV 1000MG 100 ML ONE (06:52)
[2019-05-11] MEDS ORDERED: HYDROmorphone HCL INJ 2 MG/ML VIAL ONE (06:53)
[2019-05-11] MEDS ORDERED: MIDAZOLAM INJ 5 MG/5 ML VIAL ONE (06:53)
[2019-05-11] MEDS ORDERED: fentaNYL CITRATE INJ 50 MCG/ML AMP ONE (06:53)
[2019-05-11] MEDS: ceFAZolin SODIUM 1 GM VIAL ONE ×2 (08:03→09:09)
[2019-05-11] MEDS: VANCOMYCIN HCL INJ 1,000 MG VIAL IVPB ONE ×2 (08:03→09:09)
[2019-05-11] MEDS: BUPIVACAINE LIPOSOME 13.3 MG/ML VIAL INJ ONE ×2 (08:04→09:09)
[2019-05-11] MEDS: BUPIVACAINE 0.5% 30 ML VIAL INJ ONE ×2 (08:04→09:09)
[2019-05-11] MEDS ORDERED: ZOLPIDEM TARTRATE 5 MG TAB PO PRN (09:45)
[2019-05-11] MEDS ORDERED: traMADol HCL 50 MG TAB PO PRN (09:45)
[2019-05-11] MEDS ORDERED: NALOXONE HCL INJ 0.4 MG/ML VIAL IV PRN (09:45)
[2019-05-11] MEDS ORDERED: TRANEXAMIC ACID INJ 1,000 MG in SODIUM CHLORIDE 0.9% 100ML 100 ML IVPB ONE (09:45)
[2019-05-11] MEDS ORDERED: PROMETHAZINE HCL INJ 12.5 MG in SODIUM CHLORIDE 0.9% 50ML 50 ML IVPB PRN (09:45)
[2019-05-11] MEDS ORDERED: BENZOCAINE-MENTH LOZ (CEPACOL) 1 EA LOZ MT PRN (09:45)
[2019-05-11] MEDS ORDERED: SODIUM CHLORIDE 0.9% (FLUSH) 10 ML SYG IV PRN (09:45)
[2019-05-11] MEDS ORDERED: MORPHINE SULFATE INJ 10 MG/ML VIAL IM PRN (09:45)
[2019-05-11] MEDS ORDERED: TEMAZEPAM 15 MG CAP PO PRN (09:45)
[2019-05-11] MEDS ORDERED: ACETAMINOPHEN 500 MG TAB PO PRN (09:45)
[2019-05-11] MEDS ORDERED: MAGNESIUM HYDROXIDE 30 ML UD PO PRN (09:45)
[2019-05-11] MEDS ORDERED: HYDROcodone 10MG/APAP 325MG 1 EA TAB PO PRN (09:45)
[2019-05-11] MEDS ORDERED: PROMETHAZINE HCL INJ 25 MG in SODIUM CHLORIDE 0.9% 50ML 50 ML IVPB PRN (09:45)
[2019-05-11] MEDS ORDERED: DEX 5% W/NACL 0.45% 1000ML 1,000 ML IVS PRN (09:45)
[2019-05-11] MEDS ORDERED: BISACODYL SUPPOSITORY 10 MG PR PRN (09:45)
[2019-05-11] MEDS ORDERED: ACETAMINOPHEN 325 MG TAB PO PRN (09:45)
[2019-05-11] MEDS ORDERED: HYDROcodone 5MG/APAP 325MG 1 EA TAB PO PRN (09:45)
[2019-05-11] MEDS ORDERED: ONDANSETRON INJ 4 MG/2 ML VIAL IV PRN (09:45)
[2019-05-11] MEDS ORDERED: MORPHINE SULFATE INJ 10 MG/ML VIAL IV PRN (09:45)
[2019-05-11] MEDS ORDERED: ALUMINUM & MAGNESIUM HYDROXIDE 30 ML UD PO PRN (09:45)
[2019-05-11] MEDS ORDERED: MAGNESIUM SULFATE INJ 1 GM/2 ML VIAL IVPB ONE (10:00)
[2019-05-11] MEDS ORDERED: MORPHINE PCA 1 MG/ML 100 ML BAG IVPB SCH (10:00)
[2019-05-11] MEDS ORDERED: LACTATED RINGERS 1,000 ML IVS ONE (10:00)
[2019-05-11] MEDS ORDERED: LACTATED RINGERS 1,000 ML BAG IV ONE (10:00)
[2019-05-11] MEDS ORDERED: SODIUM CHLORIDE 0.9% 50 ML VIAL INJ ONE (10:00)
[2019-05-11] MEDS ORDERED: raNITIdine HCL INJ 25 MG/ML VIAL IV ONE (10:00)
[2019-05-11] MEDS ORDERED: DEXAMETHASONE INJ 10 MG/ML VIAL IV ONE (10:00)
[2019-05-11] MEDS ORDERED: EPINEPHrine HCL AMP 1 MG/ML AMP IVPB ONE (10:00)
[2019-05-11] MEDS ORDERED: MORPHINE PCA 1 MG/ML 100 ML BAG IVPB ONE (10:20)
--- NOTE | 2019-05-11 11:19 | RAD ---
EXAM DESCRIPTION: Knee,Left 1 or 2 Views CLINICAL HISTORY: 84 years, Male, TKA COMPARISON: August 05, 2018 TECHNIQUE: Two views left knee FINDINGS: Postoperative views left knee demonstrate total knee replacement with intra-articular and subcutaneous gas surrounding the knee. Metallic femoral and tibial articular components have been placed and are well aligned. A lucent patellar prosthesis is not apparent on the lateral view. No periarticular fractures are noted and no dislocation seen. IMPRESSION: 1. Satisfactory alignment of left total knee replacement with femoral and tibial articular components placed. Electronically signed by: Armando Hobbs MD 05/11/2019 11:18 AM [facility]
--- NOTE | 2019-05-11 13:28 | OP ---
DATE OF PROCEDURE: 05/11/19 PREOPERATIVE DIAGNOSIS: 1. Osteoarthritis of the knee. POSTOPERATIVE DIAGNOSIS: 1. Osteoarthritis of the knee. PROCEDURE: 1. Total knee arthroplasty. SURGEON: Mahendra Beltran MD. GALVANIZING POT RUNNER: Laith Fernández CST, SA-C. ANESTHESIA: General anesthesia. COMPLICATIONS: None. FINDINGS: Severe osteoarthritis of the knee. INDICATION: Mr. Gutierres has a history of severe knee pain secondary to arthritis. Mr. Gutierres has had conservative measures, however, has failed to gain relief. Because of his failure of relief, he has requested operative intervention. After discussing the risks, benefits and alternatives to that, the patient has given informed consent for total knee arthroplasty. PROCEDURE: The patient was brought to the Operating Room and placed in supine position. General anesthesia was induced and the patient's leg was sterilely prepped and draped. Following prepping and draping, the distal femur was exposed and using an intramedullary guide, the distal femoral cut was made. The appropriate sized cutting block was measured, pinned into place, and the anterior, posterior, and chamfer cuts were made. The ACL was transected and the tibia was subluxed. Both the medial and lateral menisci were removed. An intramedullary guide was used to make the proximal tibial cut. The appropriate sized base plate was placed and a trial polyethylene was placed. The trial femur was placed, the knee was reduced, and the knee was taken through a range of motion. The knee was stable in anterior, posterior, varus and valgus stress. The patella tracked anatomically without evidence of subluxation or dislocation. After trialing, the trial components were removed and the bony surfaces were thoroughly irrigated with saline. Following irrigation, the surfaces were dried and the final components were cemented into place. The excess cement was removed and the remaining cement was allowed to cure. The knee was again taken through a range of motion to confirm stability. The wound was then irrigated with saline and closure was performed using PDS to approximate the arthrotomy followed by closure of the subcutaneous tissues with a combination of running and interrupted Monocryl sutures. Sterile dressing was placed. The patient was awoken from anesthesia and taken to Recovery. COMPONENTS: StelKast knee, size 4.5 femur, size 4 tibia, 10 mm insert. POSTOPERATIVE PLAN: The patient will be weight-bearing as tolerated on postoperative day 1. #[id number] [facility]
[2019-05-11] MEDS: IV SET AND CAP CHANGE INJ INJ SCH (14:11)
[2019-05-11] MEDS ORDERED: ceFAZolin SODIUM 2 GRAMS PREMI 50 ML IVPB ONE ×2 (16:13→19:07)
[2019-05-11] MEDS: ceFAZolin SODIUM 2 GRAMS PREMI 2 GM in PREMIX BAG 1 BAG IVPB SCH ×2 (16:17→23:53)
[2019-05-11] MEDS: CELECOXIB 100 MG CAP PO SCH (17:10)
[2019-05-11] MEDS: VANCOMYCIN HCL INJ 1,000 MG in SODIUM CHLORIDE 0.9% 250ML 250 ML IVPB SCH (17:10)
--- NOTE | 2019-05-11 17:32 | CONS ---
DATE OF CONSULTATION: 05/11/19 SUPERVISING PHYSICIAN: Armando Lebron M.D. REASON FOR CONSULTATION: Medical management postoperative left total knee arthroplasty. HISTORY OF PRESENT ILLNESS: Mr. Gutierres is an 84 year-old male patient who has a history of severe knee pain and arthritis. He has been having significant decrease in his activities of daily living. He has had multiple efforts at conservative measures on treatment for pain control, including assistive devices, antiinflammatories, injections and active modification, but failed to respond to any treatment to a significant amount to improve his symptoms. Given that he has had failure of his conservative measures, he requested elective total left knee arthroplasty. He was admitted today for an elective left total knee arthroplasty performed by Dr. Mahendra Beltran. He was seen in the immediate postoperative state in stable condition. PAST MEDICAL HISTORY: 1. Coronary artery disease. 2. 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 3. Past history of gastrointestinal bleed due to previous episodes of duodenitis and chronic ulcer that was compounded by Xarelto and aspirin from a previous knee replacement that required transfusion. 4. Obstructive sleep apnea. 5. History of colon cancer diagnosed in 2001 with colon resection in 2002. PAST SURGICAL HISTORY: 1. Total right knee arthroplasty. 2. Tonsillectomy and adenoidectomy. 3. Cholecystectomy in 2007. 4. Colon resection in 2002. 5. Coronary artery stent placement. HOME MEDICATIONS: 1. Multivitamin supplement 1 tablet daily. 2. Calcium and magnesium 2 tablets daily. 3. Vitamin B complex 1 tablet daily. 4. Flomax 0.4 mg at bedtime. 5. Phytosterol Esters 1 tablet b.i.d. 6. Niacin extended release 1,000 mg daily. 7. Keppra 50 mg daily. ALLERGIES: NO KNOWN DRUG ALLERGIES. FAMILY HISTORY: Father at age 73 secondary to colon cancer. Mother secondary to complications from diabetes. 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 He attended law school at [employer]. He lives in [place] where he practiced multiple years with [employer]. 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 He has worked at [employer] in [place]. He is . He did smoke tobacco but quit in 1998. Drinks on very rare social occasions. REVIEW OF SYSTEMS: Negative for any fevers, chills, weakness or general malaise. HEENT: Negative for sore throat, ear aches, nasal congestion, headaches, vision changes. CARDIOVASCULAR: Negative for any chest pains, orthopnea or syncopal episodes. RESPIRATORY: Negative for any shortness of breath, wheezing or coughing. GASTROINTESTINAL: Negative for any nausea, vomiting, diarrhea, hematochezia, abdominal pains, melena or other bowel changes. GENITOURINARY: Negative for any dysuria, hematuria or polyuria. MUSCULOSKELETAL: As noted in history of present illness. INTEGUMENT: Negative for any lesions, rashes, moles or unexplained skin changes. NEUROLOGIC: Positive for generalized weakness but no deficits. Negative for any syncopal episodes, dizziness or any recent seizure activity. HEMATOLOGIC: Has a history of issues with bleeding from Xarelto requiring previous transfusions but no noted reactions. No reported current bleeding or bruising episodes. PHYSICAL EXAMINATION: VITAL SIGNS: Temperature 97.5, pulse 68, blood pressure 139/73, respirations 16, satting 98% on room air. GENERAL: The patient is resting comfortably. Appears to be in no acute distress. He is alert and oriented times three. HEENT: Tympanic membranes are clear bilaterally. Oropharynx was pink and moist without any lesions. NECK: Supple, non-tender. Full range of motion. No jugular venous distention. CHEST: Lung sounds are clear throughout without any rhonchi, wheezing or rales. HEART: Regular rate and rhythm without appreciable murmurs, gallops, or rubs. ABDOMEN: Soft, non-tender. Positive bowel sounds. EXTREMITIES: Left knee has an Iceman in place with a postoperative bandage. Distally pulses were strong, capillary refill is brisk. NEUROLOGIC: He was alert and oriented times three. LABORATORY: Postoperative H&H was pending. Urine drug screen was negative. ASSESSMENT: 1. Immediate postoperative day #0 for an elective left total knee arthroplasty having failed to respond to outpatient treatment measures. Surgery performed by Dr. Mahendra Beltran. 2. History of coronary artery disease. 3. 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 4. History of gastrointestinal bleed due to severe duodenitis and chronic ulcer compounded by aspirin and Xarelto from a previous knee replacement that required transfusions. 5. Obstructive sleep apnea. 6. History of colon cancer diagnosed in 2001 and treated with colon resection in 2002. PLAN: Will follow the patient as he continues with his inpatient rehabilitation efforts with Physical Therapy. Will defer orthopedic management to Dr. Beltran. Will need to take into consideration his past medical history and issues with Xarelto and bleeding on previous knee replacements. Will probably need to talk to Dr. Beltran about this and his risk factors on discharge. I believe his plan at this point for discharge and physical therapy is through the [facility] and then rehab through home health. I will review his medications and restart those as appropriate to care. He is on deep venous thrombosis prophylaxis per protocol. Until we can transition to outpatient management will anticipate length of stay to be 2 to 3 days. Will continue to monitor and treat until discharge. #[id number] [facility]
[2019-05-11] MEDS ORDERED: ENOXAPARIN SODIUM 30 MG/0.3 ML SYG SUBCU ONE (19:07)
[2019-05-11] MEDS: DOCUSATE CALCIUM 240 MG CAP PO SCH (20:11)
[2019-05-11] MEDS: ENOXAPARIN SODIUM 30 MG/0.3 ML SYG SUBCU SCH (23:08)
[2019-05-12] MEDS: VANCOMYCIN HCL INJ 1,000 MG in SODIUM CHLORIDE 0.9% 250ML 250 ML IVPB SCH (06:11)
[2019-05-12] MEDS ORDERED: NIACIN 500 MG TAB ONE (07:28)
[2019-05-12] MEDS ORDERED: ceFAZolin SODIUM 2 GRAMS PREMI 50 ML IVPB ONE (07:29)
[2019-05-12] MEDS: CELECOXIB 100 MG CAP PO SCH ×2 (07:58→16:31)
[2019-05-12] MEDS: ceFAZolin SODIUM 2 GRAMS PREMI 2 GM in PREMIX BAG 1 BAG IVPB SCH (07:58)
--- NOTE | 2019-05-12 07:59 | PN ---
DATE: 05/11/19 POSTOPERATIVE CHECK SUBJECTIVE: Mr. Gutierres is doing well. He notes no pain. OBJECTIVE: Afebrile. Vital signs stable. Dressing is clean, dry and intact. ASSESSMENT: Status post total knee arthroplasty. PLAN: The plan is to begin weightbearing as tolerated on postoperative day #1. [facility][id number] [facility]
--- NOTE | 2019-05-12 08:00 | RAD ---
PROVIDED CLINICAL HISTORY/REASON FOR EXAM: LEFT TKA Findings/impression: One intraoperative fluoroscopic image of a left total knee arthroplasty Dose: 0.18 mGy Time: 2.1 seconds Electronically signed by: Celestino Bowman MD 05/12/2019 7:58 AM [facility]
--- NOTE | 2019-05-12 08:00 | PN ---
DATE: 05/12/19 SUBJECTIVE: He is doing well. He is up and eating breakfast. OBJECTIVE: Afebrile. Vital signs stable. Dressing is clean, dry and intact. ASSESSMENT: Status post total knee arthroplasty. PLAN: The plan at this point is for him to begin weightbearing as tolerated today. #[id number] [facility]
[2019-05-12] MEDS ORDERED: levETIRAcetam 250 MG TAB PO SCH (09:00)
[2019-05-12] MEDS ORDERED: levETIRAcetam 250 MG TAB ONE (09:11)
[2019-05-12] MEDS: NIACIN 1000 MG PO SCH (09:38)
[2019-05-12] MEDS: MAGNESIUM OXIDE 400 MG TAB PO SCH (09:38)
[2019-05-12] MEDS: ENOXAPARIN SODIUM 30 MG/0.3 ML SYG SUBCU SCH ×2 (11:37→22:48)
[2019-05-12] MEDS ORDERED: ACETAMINOPHEN W/ COD #4 TAB 1EA TAB ONE (16:52)
[2019-05-12] MEDS: ACETAMINOPHEN W/ COD #4 TAB 1EA TAB PO PRN ×2 (16:53→21:05)
[2019-05-12] MEDS: CYCLOBENZAPRINE HCL 10 MG TAB PO PRN (16:53)
[2019-05-12] MEDS: TAMSULOSIN 0.4 MG CAP PO SCH (20:57)
[2019-05-12] MEDS: DOCUSATE CALCIUM 240 MG CAP PO SCH (20:57)
--- NOTE | 2019-05-12 21:19 | PN ---
DATE: 05/12/19 SUPERVISING PHYSICIAN: Armando Lebron M.D. SUBJECTIVE: The patient is sitting up in his chair eating his lunch. He actually feels quite good today, although he does have some pain but the pain is being controlled with his pain medication. He denies any nausea, vomiting, diarrhea or constipation. No chest pain. OBJECTIVE: VITAL SIGNS: Temperature 98, heart rate 56, blood pressure 130/79, respiratory rate 18, O2 saturation 95% on room air. RESPIRATORY: Essentially clear to auscultation bilaterally. CARDIAC: Regular rate and rhythm. GASTROINTESTINAL: Abdomen is soft, nondistended, non-tender. Bowel sounds are positive. EXTREMITIES: He has an Michele wrap to his left knee that is dry and intact. Bilateral pedal pulses are palpable at +2. NEUROLOGIC: He is awake, alert and oriented times three. LABORATORY: Hemoglobin 13.8, hematocrit 40.7. All other labs and films have been reviewed via the EMR. ASSESSMENT: 1. Postoperative day #1 for an elective left total knee arthroplasty having failed to respond to outpatient treatment measures. Surgery performed by Dr. Mahendra Beltran, orthopedic surgeon. 2. History of coronary artery disease. 3. 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 4. History of gastrointestinal bleed due to severe duodenitis and chronic ulcer compounded by aspirin and Xarelto from a previous knee replacement that required transfusions. 5. Obstructive sleep apnea. 6. History of colon cancer diagnosed in 2001 and treated with colon resection in 2002. PLAN: We will continue present supportive care. His orthopedic issues will be per Dr. Mahendra Beltran, orthopedic surgeon. He will continue with physical therapy for strengthening and conditioning. Due to his gastrointestinal bleed issues from previous surgery, I will check an H&H on Thursday and hopefully he can be discharged as long as he is stable on Thursday. Will continue to monitor closely and follow as needed. [facility][id number] [facility]
[2019-05-13] MEDS: ACETAMINOPHEN W/ COD #4 TAB 1EA TAB PO PRN ×4 (01:05→20:44)
[2019-05-13] MEDS: CYCLOBENZAPRINE HCL 10 MG TAB PO PRN ×2 (05:11→15:59)
[2019-05-13] MEDS: CELECOXIB 100 MG CAP PO SCH ×2 (07:43→17:07)
--- NOTE | 2019-05-13 08:54 | PN ---
DATE: 05/13/19 SUBJECTIVE: Mr. Gutierres is doing well and his pain is well controlled. OBJECTIVE: Afebrile. Vital signs stable. Wound is clean. There are no signs or symptoms of infection. ASSESSMENT: Status post total knee arthroplasty. PLAN: The plan at this point is to continue on with physical therapy. He should be discharged tomorrow with home health. [facility][id number] [facility]
[2019-05-13] MEDS: MAGNESIUM OXIDE 400 MG TAB PO SCH (09:02)
[2019-05-13] MEDS: levETIRAcetam 250 MG TAB PO SCH (09:02)
[2019-05-13] MEDS: SODIUM CHLORIDE 0.9% (FLUSH) 10 ML SYG IV SCH ×2 (09:03→20:44)
[2019-05-13] MEDS ORDERED: NIACIN 500 MG TAB ONE (09:16)
[2019-05-13] MEDS: NIACIN 1000 MG PO SCH (09:20)
[2019-05-13] MEDS: ENOXAPARIN SODIUM 30 MG/0.3 ML SYG SUBCU SCH ×2 (11:27→23:01)
--- NOTE | 2019-05-13 18:59 | PN ---
DATE: 05/13/19 SUPERVISING PHYSICIAN: Armando Lebron M.D. SUBJECTIVE: The patient is sitting up in his chair. He is asleep. He awakens easily. He denies any nausea, vomiting, diarrhea, constipation, chest pain or shortness of breath. He feels like he has been progressing well through his physical therapy. OBJECTIVE: VITAL SIGNS: Temperature 98.1, heart rate 64, blood pressure 121/75, respiratory rate 18, O2 saturation 95% on 2 liters nasal cannula. RESPIRATORY: Slightly diminished at the bases but otherwise clear to auscultation bilaterally. CARDIAC: Regular rate and rhythm. GASTROINTESTINAL: Abdomen is soft, nondistended, non-tender. Bowel sounds are positive. EXTREMITIES: He has an island dressing to his left knee that is dry and intact. Bilateral pedal pulses are palpable at +2. NEUROLOGIC: He is awake, alert and oriented times three. LABORATORY: There are no labs or films to report at this time. ASSESSMENT: 1. Postoperative day #2 for an elective left total knee arthroplasty having failed to respond to outpatient treatment measures. Surgery performed by Dr. Mahendra Beltran, orthopedic surgeon. 2. History of coronary artery disease. 3. 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 4. History of gastrointestinal bleed due to severe duodenitis and chronic ulcer compounded by aspirin and Xarelto from a previous knee replacement that required transfusions. 5. Obstructive sleep apnea. 6. History of colon cancer diagnosed in 2001 and treated with colon resection in 2002. PLAN: We will continue present supportive care. Orthopedic issues will be per Dr. Mahendra Beltran, orthopedic surgeon. He will continue his physical therapy for strengthening and conditioning. As of now he should meet goals and should be discharged tomorrow for outpatient physical therapy. I have ordered an H&H for in the morning due to his history of gastrointestinal bleed. I have instructed him on not letting his pain get out of control. Will continue to monitor closely and follow as needed. [facility][id number] [facility]
[2019-05-13] MEDS: TAMSULOSIN 0.4 MG CAP PO SCH (20:44)
[2019-05-13] MEDS: DOCUSATE CALCIUM 240 MG CAP PO SCH (20:44)
[2019-05-14] MEDS: ACETAMINOPHEN W/ COD #4 TAB 1EA TAB PO PRN ×2 (01:28→05:58)
[2019-05-14] MEDS: CELECOXIB 100 MG CAP PO SCH (07:47)
[2019-05-14] MEDS: MAGNESIUM OXIDE 400 MG TAB PO SCH (08:53)
[2019-05-14] MEDS: levETIRAcetam 250 MG TAB PO SCH (08:53)
[2019-05-14] MEDS: SODIUM CHLORIDE 0.9% (FLUSH) 10 ML SYG IV SCH (08:56)
[2019-05-14] MEDS: NIACIN 1000 MG PO SCH (09:06)
[2019-05-14] MEDS: ENOXAPARIN SODIUM 30 MG/0.3 ML SYG SUBCU SCH (11:30)
[2019-05-14] MEDS: IV SET AND CAP CHANGE INJ INJ SCH (11:34)
[2019-05-14 14:11] VITALS: BP 110/70; TEMP 97.1; O2SAT 93
[2019-05-14] MEDS ORDERED: BISACODYL SUPPOSITORY 10 MG PR ONE (21:00)
[2019-05-14] MEDS ORDERED: MAGNESIUM HYDROXIDE 30 ML UD PO ONE (21:00)
--- NOTE | 2019-05-14 22:06 | PN ---
DATE: 05/14/19 SUBJECTIVE: He is doing really well. He has been up walking. OBJECTIVE: He is afebrile. Vital signs are stable. Wound is clean. There are no signs or symptoms of infection. ASSESSMENT: 1. Status post total knee arthroplasty. PLAN: The plan is to continue weightbearing as tolerated and discharge to home. #[id number] [facility]
--- NOTE | 2019-05-19 09:25 | DS ---
SUPERVISING PHYSICIAN: Armando Lebron MD DISCHARGE DIAGNOSIS: 1. Postoperative day #3 for an elective left total knee arthroplasty having failed to respond to outpatient treatment measures. Surgery performed by Dr. Mahendra Beltran, orthopedic surgeon. 2. History of coronary artery disease. 3. 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 4. History of gastrointestinal bleed due to severe duodenitis and chronic ulcer compounded by aspirin and Xarelto from a previous knee replacement that required transfusions. 5. Obstructive sleep apnea. 6. History of colon cancer diagnosed in 2001 and treated with colon resection in 2002. HISTORY OF PRESENT ILLNESS: This is an 84-year-old male patient who has a history of severe knee pain and arthritis. He has had to significant decrease in his activities of daily living. Multiple efforts at conservative measures have failed and he has requested Dr. Mahendra Beltran, orthopedic surgeon, for left total knee arthroplasty. He was admitted to the hospital on the date of his surgery. He had no intraoperative complications. He was on the Medical/Surgical Floor after his surgical intervention. HOSPITAL COURSE: The patient had no problems after his surgery other than he had a difficult time taking pain medications and was strongly encouraged to do so. He did have a past history of bleeding problems on Xarelto when he had his previous knee surgery, so followup lab was done prior to discharge. His first day postoperatively, his hemoglobin was 13.8 and hematocrit 40.7. On the date of discharge, his hemoglobin was 12.8 and hematocrit 37.0. He completed his physical therapy for strengthening and conditioning in the hospital. He will do physical therapy at the [facility] after discharge. He will be discharged home today in stable condition. LABORATORY: Labs are per the history of present illness. His UDS was negative. RADIOLOGY: Radiology reports are per the EMR. DISCHARGE PLAN: The patient will be discharged home in stable condition. He is to resume his usual diet. He is to increase his activity as per Physical Therapy. He has a followup appointment with Dr. Beltran on 05/30/19. In addition to his routine medications, he is also to be sent home with a prescription for acetaminophen with codeine, cyclobenzaprine, docusate sodium and 9 days of Xarelto. He is to take the Colace while he is on pain medications as he has a problem with constipation. He is to return to the hospital or followup with Dr. Beltran for any problems or complications. DISCHARGE MEDICATIONS: 1. Flomax. 2. Phytosterol Esters. 3. Niacin. 4. Multivitamins. 5. Calcium with magnesium. 6. B complex vitamins. 7. Levetiracetam. 8. Acetaminophen with codeine. 9. Cyclobenzaprine. 10. Xarelto. 11. Colace. [facility][id number] [facility]
== END 2019-05-14 15:15 | disposition home or self-care (01) | DRG 470 ==
LOC: AMB 05:30 → MS 10:55
PROVIDERS: ADMIT Orthopaedic Surgery; ATTEND Nurse Practitioner Acute Care
PROC: 3E0T3BZ Introduction of Anesthetic Agent into Peripheral Nerves and Plexi, Percutaneous Approach (ICD-10-PCS; 2019-05-11)
PROC: 3E0T33Z Introduction of Anti-inflammatory into Peripheral Nerves and Plexi, Percutaneous Approach (ICD-10-PCS; 2019-05-11)
PROC: 0SRD0J9 Replacement of Left Knee Joint with Synthetic Substitute, Cemented, Open Approach (ICD-10-PCS; principal; 2019-05-11 07:00)
DX: M17.12 Unilateral primary osteoarthritis, left knee (principal); I25.10 Atherosclerotic heart disease of native coronary artery without angina pectoris; G47.33 Obstructive sleep apnea (adult) (pediatric); R56.9 Unspecified convulsions; Z85.038 Personal history of other malignant neoplasm of large intestine; Z90.49 Acquired absence of other specified parts of digestive tract; Z96.651 Presence of right artificial knee joint; Z95.5 Presence of coronary angioplasty implant and graft; Z79.899 Other long term (current) drug therapy; Z87.891 Personal history of nicotine dependence

== ENCOUNTER 2019-06-02 11:07 | Inpatient (IN) | payer MEDICARE, OTHER ==
--- NOTE | 2019-06-02 12:54 | ED.PDOC ---
History of Present Illness - General Chief Complaint: Respiratory Problem Stated Complaint: Shortness of breath x 4 days Time Seen by Provider: 06/02/19 11:19 - History of Present Illness Initial Comments: 84 M +pmh presents from PCP's office to ED c/o acute onset dypsnea that began today. PCP called @1052 and notified pt was dyspneic in office with 98% O2 sat on RA but with RR30-60 with 3-5 word dyspnea. Pt was found to have clear lung sounds and clear CXR with no signs of pulmonary edema, pulmonary effusion. PCP concerned for PE vs metabolic etiology. Pt recently with left knee arthroplasty 3 weeks ago but denies any lower extremity edema or asymmetric pain beyond post- op. Pt states he awoke this morning with SOB and denies any associated CP, dizziness/lightneadedness, headache, palpitations, abd pain, n/v/d, weakness. Pt denies h/o similar sx's. He is otherwise healthy with no other signs, symptoms, or complaints. Allergies/Adverse Reactions: Allergies NO KNOWN ALLERGY Allergy (Verified 05/05/19 13:54) Home Medications: Ambulatory Orders B-Complex Vitamins [Vitamin B Complex] 1 tab PO DAILY 05/04/17 Calcium W/ Magnesium [Oyster Shell Calcium/Magn 250-155 mg] 2 tab PO DAILY 05/04/17 Multiple Vitamins W/ Minerals [Therapeutic Multi Vitamin] 1 tab PO DAILY 05/04/17 Tamsulosin [Flomax] 0.4 mg PO BEDTIME 05/04/17 Acetaminophen W/ Codeine [Tylenol/Codeine #4 300-60 mg] 1 ea PO Q4HR PRN #30 tab 05/14/19 Docusate Sodium [Colace Cap] 100 mg PO BID #60 cap 05/14/19 B-Complex W/Biotin & Folic Aci [Endur-B] 1 tab PO DAILY 06/02/19 Finasteride 5 mg PO DAILY 06/02/19 Levetiracetam 500 mg PO BID 06/02/19 Niacin [Endur-Acin] 500 mg PO DAILY 06/02/19 Phytosterols 450 mg PO DAILY 06/02/19 Review of Systems - Review of Systems Constitutional: Denies: chills, diaphoresis, fever EENTM: Denies: blurred vision, ear pain Respiratory: States: short of breath. Denies: cough, stridor, wheezing Cardiology: Denies: chest pain, edema, palpitations, syncope Gastrointestinal/Abdominal: Denies: abdominal pain, diarrhea, nausea, vomiting Genitourinary: Denies: dysuria, frequency Musculoskeletal: States: joint pain - left knee, post-op pain that is improving, already present, and unchanged. Denies: back pain, joint swelling, neck pain Skin: Denies: change in color, rash Neurological: Denies: headache, weakness Hematologic/Lymphatic: Denies: blood clots Past Medical History (General) - Patient Medical History Hx Seizures: Yes Hx Stroke: Yes - 03/2017 Hx Dementia: No Hx Asthma: No Hx of COPD: No Hx Cardiac Disorders: Yes - Irregular rhythm Hx Congestive Heart Failure: No Hx Pacemaker: No Hx Hypertension: No Hx Thyroid Disease: No Hx Diabetes: No Hx Gastroesophageal Reflux: Yes Hx Renal Disease: No Hx Cancer: Yes - Colon Hx of HIV: No Hx Hepatitis C: No Hx MRSA: Yes MRSA Source:: +NOSE CT Surgical History: cholecystectomy, colectomy, tonsillectomy - Vaccination History Hx Tetanus, Diphtheria Vaccination: No Hx Influenza Vaccination: Yes - 2016 Hx Pneumococcal Vaccination: - unknown - Social History Hx Tobacco Use: Yes - Quit 1986 Hx Alcohol Use: No Hx Substance Use: No Hx Substance Use Treatment: No Hx Depression: No Hx Physical Abuse: No Hx Emotional Abuse: No Hx Suspected Abuse: No Family Medical History - Family History Father Living Status: Cause of : Colon CA Hx Family Asthma: No Hx Family Congestive Heart Failure: No Hx Family Hypertension: No Hx Family Stroke: No Hx Cardiac Disease: No Hx Family Diabetes: Yes - mom Hx Family Cancer: Yes - Colon Physical Exam - Physical Exam General Appearance: Alert, Comfortable, Well Developed, Well Groomed, Well Hydrated, Well Nourished, Other - Mild distress from dypsnea Eyes, Ears, Nose, Throat Exam: PERRL/EOMI Neck: supple, normal inspection, other - no jvd Respiratory: lungs clear, normal breath sounds, respiratory distress, other - tachypneic Cardiovascular/Chest: normal peripheral pulses, regular rate, rhythm, no edema, no gallop, no JVD, no murmur Gastrointestinal/Abdominal: normal bowel sounds, non tender, soft, no pulsatile mass, other - no abdominal bruit Extremity: normal inspection, no pedal edema, no calf tenderness Neurologic: alert, normal mood/affect, oriented x 3 Skin Exam: normal color, warm/dry Progress - Progress Progress: Pt presents with concern for PE vs ACS with lower clinical concern for metabolic derangement. I will obtain labs, EKG, CTA chest, provide appropriate pharmacotherapy as indicated, and continue to monitor/reassess. Disposition will depend on labs, EKG, imaging, and overall ED course; however, I will have low threshold for admission. 1335 Rechecked pt. NAD with improvement but remains dyspneic at ~8 words. VSS. I have discussed lab findings, imaging findings, and clinical impression with pt. Admission offered discussing risk/benefits vs alternative of discharge home. He is unsure if his has a ride and she is at dialysis right now. He is going to try to coordinate her care and will let me know. 1346 Pt agrees with inpatient admission. 06/02/19 13:52 1348 I have consulted with Hospitalist Chito Jimenez and discussed pt's case in ED along with current findings. He agrees with inpatient admission of pt. 06/02/19 13:54 - Results/Orders Results/Orders: Initial EKG @1140: Significant artifact from dyspnea/tachypnea. Bigeminy with bradycardia @59, left axis deviation, mild QTc prolongation, OR/QRS wnl, trace ST depression in V4-6, nonspecific ST/T-wave changes. No STEMI despite EKG computer reading as acute GA. Repeat EKG @1201: Improved EKG with minimal artifact. Bigeminy with regular rate @61, left axis deviation, mild QTc prolongation, OR/QRS wnl, mild ST flattening in V4-6, nonspecific ST/T-wave changes. No STEMI. Laboratory Tests 06/02/19 06/02/19 06/02/19 11:40 11:53 11:53 WBC RBC Hgb Hct MCV MCH MCHC RDW Plt Count MPV Absolute Neuts (auto) Absolute Lymphs (auto) Absolute Monos (auto) Absolute Eos (auto) Absolute Basos (auto) Neutrophils % Lymphocytes % Monocytes % Eosinophils % Basophils % Sodium 138 Potassium 3.9 Chloride 103 Carbon Dioxide 24 Anion Gap 14.9 BUN 24 H Creatinine 1.11 BUN/Creatinine Ratio 21.6 H Random Glucose 81 Serum Osmolality 278.8 Calcium 9.6 Total Bilirubin 1.1 H AST 31 ALT 24 Alkaline Phosphatase 113 Troponin I 0.04 B-Natriuretic Peptide Serum Total Protein 7.5 Albumin 3.9 Globulin 3.6 H Albumin/Globulin Ratio 1.1 TSH 1.98 Urine Color Yellow Urine Appearance Clear Urine pH 7.5 Ur Specific Mission 1.015 Urine Protein Negative Urine Glucose (UA) Negative Urine Ketones Negative Urine Blood Negative Urine Nitrite Negative Urine Bilirubin Negative Urine Urobilinogen 0.2 Ur Leukocyte Esterase Negative Urine RBC 0 Urine WBC 0 Ur Epithelial Cells 0-1 Amorphous Sediment 2+ Urine Bacteria 0 Urine Mucus Moderate 06/02/19 06/02/19 11:53 11:53 WBC 5.1 RBC 4.25 L Hgb 13.4 L Hct 40.7 L MCV 95.8 H MCH 31.5 H MCHC 32.8 L RDW 14.2 Plt Count 213 MPV 9.4 Absolute Neuts (auto) 3.30 Absolute Lymphs (auto) 1.20 Absolute Monos (auto) 0.50 Absolute Eos (auto) 0.10 Absolute Basos (auto) 0.00 Neutrophils % 64.1 Lymphocytes % 23.4 Monocytes % 10.3 H Eosinophils % 1.3 Basophils % 0.9 Sodium Potassium Chloride Carbon Dioxide Anion Gap BUN Creatinine BUN/Creatinine Ratio Random Glucose Serum Osmolality Calcium Total Bilirubin AST ALT Alkaline Phosphatase Troponin I B-Natriuretic Peptide 368.0 H* Serum Total Protein Albumin Globulin Albumin/Globulin Ratio TSH Urine Color Urine Appearance Urine pH Ur Specific Mission Urine Protein Urine Glucose (UA) Urine Ketones Urine Blood Urine Nitrite Urine Bilirubin Urine Urobilinogen Ur Leukocyte Esterase Urine RBC Urine WBC Ur Epithelial Cells Amorphous Sediment Urine Bacteria Urine Mucus EXAM DESCRIPTION: CTA Chest CLINICAL HISTORY: 84 years Male, dyspnea, recent surgery COMPARISON: CT chest dated April 24, 2017. TECHNIQUE: Contiguous thin section axial images were obtained from the supraclavicular region to below the diaphragm level with the use of intravenous contrast using PE protocol. Sagittal and coronal reconstructions were reviewed. Coronal and sagittal images were also obtained and reviewed. This exam was performed according to our departmental dose-optimization program, which includes automated exposure control, adjustment of the mA and/or kV according to patient size and/or use of iterative reconstruction technique. FINDINGS: No central or major vessel pulmonary embolus. The visualized thyroid gland appears grossly unremarkable. No enlarged axillary, supraclavicular or hilar lymphadenopathy. Stable appearing mildly prominent lymph nodes could be reactive. The heart size is enlarged with reflux of contrast into the IVC likely represents right heart strain. Trace pericardial effusion noted. The great vessels appear grossly unremarkable. No evidence of filling defects in the pulmonary trunk, right and left main pulmonary arteries suggestive of pulmonary embolism. Small segmental or subsegmental PE cannot be completely excluded. The tracheobronchial tree is patent. Review of the lung windows demonstrate severe bilateral emphysematous changes predominantly involving the upper lobes with large cystic changes which appears stable from prior exam. Diffuse scattered groundglass changes throughout both lungs likely represents a trapping. No acute consolidation or pleural effusion. Bibasilar atelectatic changes are seen. No pneumothorax. No suspicious nodules or abnormal mass lesions identified. The e sophagus appears grossly normal throughout its length. The visualized upper abdomen appears grossly unremarkable although Limited evaluation secondary to motion artifact. Review of the bone windows demonstrate no acute osseous abnormality. Multilevel degenerative disease of the visualized thoracolumbar spine noted. IMPRESSION: 1. No central or major vessel pulmonary embolus. 2. Stable cardio megaly with reflux of contrast into the IVC is concerning for right heart strain. Clinical correlation is recommended. 3. No acute consolidation or pleural effusion. 4. Stable appearing severe bilateral emphysematous changes predominantly involving the upper lobes with multiple cystic changes. No suspicious nodules or abnormal mass lesions identified. No pneumothorax. Electronically signed by: Dallas Dai MD 06/02/2019 1:30 PM AIR CONDITIONING SHEET METAL INSTALLER Departure - Departure Clinical Impression: Dyspnea Qualifiers: Dyspnea type: acute respiratory distress Qualified Code(s): R06.03 - Acute respiratory distress Heart failure Qualifiers: Heart failure type: unspecified Heart failure chronicity: acute Qualified Code(s): I50.9 - Heart failure, unspecified Time of Disposition: 13:48 Disposition: Admit Patient Condition: Good Home Medications: Ambulatory Orders B-Complex Vitamins [Vitamin B Complex] 1 tab PO DAILY 05/04/17 Calcium W/ Magnesium [Oyster Shell Calcium/Magn 250-155 mg] 2 tab PO DAILY 05/04/17 Multiple Vitamins W/ Minerals [Therapeutic Multi Vitamin] 1 tab PO DAILY 05/04/17 Tamsulosin [Flomax] 0.4 mg PO BEDTIME 05/04/17 Acetaminophen W/ Codeine [Tylenol/Codeine #4 300-60 mg] 1 ea PO Q4HR PRN #30 tab 05/14/19 Docusate Sodium [Colace Cap] 100 mg PO BID #60 cap 05/14/19 B-Complex W/Biotin & Folic Aci [Endur-B] 1 tab PO DAILY 06/02/19 Finasteride 5 mg PO DAILY 06/02/19 Levetiracetam 500 mg PO BID 06/02/19 Niacin [Endur-Acin] 500 mg PO DAILY 06/02/19 Phytosterols 450 mg PO DAILY 06/02/19 Decision To Admit - Decistion To Admit Decision to Admit Reason: Admit from ER Decision to Admit Date: 06/02/19 Decision to Admit Time: 13:34 - Consultation with hospitalist delayed for pt decision making.
--- NOTE | 2019-06-02 13:31 | CT ---
EXAM DESCRIPTION: CTA Chest CLINICAL HISTORY: 84 years Male, dyspnea, recent surgery COMPARISON: CT chest dated April 24, 2017. TECHNIQUE: Contiguous thin section axial images were obtained from the supraclavicular region to below the diaphragm level with the use of intravenous contrast using PE protocol. Sagittal and coronal reconstructions were reviewed. Coronal and sagittal images were also obtained and reviewed. This exam was performed according to our departmental dose-optimization program, which includes automated exposure control, adjustment of the mA and/or kV according to patient size and/or use of iterative reconstruction technique. FINDINGS: No central or major vessel pulmonary embolus. The visualized thyroid gland appears grossly unremarkable. No enlarged axillary, supraclavicular or hilar lymphadenopathy. Stable appearing mildly prominent lymph nodes could be reactive. The heart size is enlarged with reflux of contrast into the IVC likely represents right heart strain. Trace pericardial effusion noted. The great vessels appear grossly unremarkable. No evidence of filling defects in the pulmonary trunk, right and left main pulmonary arteries suggestive of pulmonary embolism. Small segmental or subsegmental PE cannot be completely excluded. The tracheobronchial tree is patent. Review of the lung windows demonstrate severe bilateral emphysematous changes predominantly involving the upper lobes with large cystic changes which appears stable from prior exam. Diffuse scattered groundglass changes throughout both lungs likely represents a trapping. No acute consolidation or pleural effusion. Bibasilar atelectatic changes are seen. No pneumothorax. No suspicious nodules or abnormal mass lesions identified. The esophagus appears grossly normal throughout its length. The visualized upper abdomen appears grossly unremarkable although Limited evaluation secondary to motion artifact. Review of the bone windows demonstrate no acute osseous abnormality. Multilevel degenerative disease of the visualized thoracolumbar spine noted. IMPRESSION: 1. No central or major vessel pulmonary embolus. 2. Stable cardiomegaly with reflux of contrast into the IVC is concerning for right heart strain. Clinical correlation is recommended. 3. No acute consolidation or pleural effusion. 4. Stable appearing severe bilateral emphysematous changes predominantly involving the upper lobes with multiple cystic changes. No suspicious nodules or abnormal mass lesions identified. No pneumothorax. Electronically signed by: Dallas Dai MD 06/02/2019 1:30 PM AUTOMATION CONTROLS SPECIALIST
[2019-06-02] MEDS ORDERED: NITROGLYCERIN 0.4 MG 25 EA TAB SL PRN (13:59)
[2019-06-02] MEDS ORDERED: SODIUM CHLORIDE 0.9% (FLUSH) 10 ML SYG IV PRN (13:59)
[2019-06-02] MEDS ORDERED: IV SET AND CAP CHANGE INJ INJ SCH (14:00)
--- NOTE | 2019-06-02 14:20 | HP ---
SUPERVISING PHYSICIAN: Kuldip Washington M.D. CHIEF COMPLAINT: Shortness of breath. HISTORY OF PRESENT ILLNESS: This is an 84 year-old male patient who went to his primary care physician today. Over there he was noted to be quite tachypneic, although his lungs did not really sound that bad. No history of fever or chills. No cough. However, given the tachypnea and the fact the patient recently had a total knee arthroplasty, the patient was brought to the Emergency Room to evaluate for pulmonary embolism. In the Emergency Room, he did, in fact, have a CT angiogram which was negative for a pulmonary embolism. His labs showed an elevated BNP and the CT scan actually was indicative of right heart strain. Additionally, the CT showed that the patient had significant emphysema. He does have a distant history of smoking but quit in 1998. He has not had any difficulties with chronic obstructive pulmonary disease, although he has had some bouts with pneumonia and influenza. Given these findings he was referred for admission. At time of examination, the patient is alert and oriented. He is able to speak in complete sentences at this time. No distress, however I can see that he is a little bit tachypneic, at the origin not quite to the point that was described over at the doctor's office. PAST MEDICAL HISTORY: 1. Coronary artery disease. 2. Partial complex seizures. 3. Gastrointestinal bleeding due to duodenitis and chronic ulcer. 4. Obstructive sleep apnea. 5. History of colon cancer status post colon resection. PAST SURGICAL HISTORY: 1. Total right knee arthroplasty. 2. Recent left total knee arthroplasty back in April. 3. Tonsillectomy and adenoidectomy. 4. Cholecystectomy. 5. Colon resection in 2002. 6. Percutaneous transluminal coronary angioplasty with stent. HOME MEDICATIONS: Please see the medication reconciliation list once they are completed in the computer. ALLERGIES: NO KNOWN DRUG ALLERGIES. FAMILY HISTORY: Father at age 73 of colon cancer. Mother secondary to complications from diabetes. SOCIAL HISTORY: The patient has a history of smoking, quit in 1998. Social alcohol use on rare occasions. No illegal drugs. 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 He is . REVIEW OF SYSTEMS: CONSTITUTIONAL: No fever or chills. No recent weight loss or weight gain. HEENT: No headaches, vision changes, ear pain nasal congestion or throat pain. CARDIOVASCULAR: No chest pains, palpitations or peripheral edema. RESPIRATORY: No cough. No hemoptysis. Positive for shortness of breath. GASTROINTESTINAL: No nausea, vomiting, diarrhea, constipation or abdominal pain. GENITOURINARY: No dysuria, frequency or flank pain. MUSCULOSKELETAL: He had some left knee discomfort postoperatively but no other musculoskeletal complaints at this time. ENDOCRINE: No polydipsia, polyuria or polyphagia. No heat or cold intolerance. HEMATOLOGIC: Positive for easy bruising but no transfusion reaction. PHYSICAL EXAMINATION: VITAL SIGNS: Blood pressure 143/64, heart rate 61, respiratory rate 20, temperature 98.0, oxygen saturation 98%. GENERAL: Mr. Gutierres is an 84 year-old male patient in no active distress currently. CHEST: Lungs are clear to auscultation bilaterally, although a bit diminished. CARDIOVASCULAR: Regular rate and rhythm. Normal S1 and S2. ABDOMEN: Soft. Positive bowel sounds. GENITOURINARY: Exam is deferred. EXTREMITIES: Lower extremities with no significant edema. The left knee incision looks well approximated with no signs of infection. NEUROLOGIC: The patient is alert and oriented. LABORATORY: Labs and films as discussed in History of Present Illness. ASSESSMENT: 1. Dyspnea likely secondary to emphysema which was newly found on a CT scan, although he has not been treated chronically for chronic obstructive pulmonary disease. 2. Possible congestive heart failure given the elevated BNP, although has no history of this either. 3. Recent left total knee arthroplasty. 4. History of coronary artery disease with no indication of acute complications. 5. 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 6. History of colon cancer status post resection in 2002. PLAN: At this time, the patient will be admitted. I am going to go ahead and get Dopplers of the lower extremities to ensure that there are no deep venous thromboses, although the CT angiogram of the chest was negative. I am also going to start him on nebulizer treatments. He quite clearly has emphysema on the CT scan of the chest. He may need chronic treatment and a pulmonary consultation at some point. Will check an echocardiogram as well. The CT scan indicates right heart strain. I do not see any documented echocardiograms on his records here at the hospital. The patient does not have any rales. No evidence of pulmonary edema on CAT scan. I am going to hold off on any diuretics at this time. I will also restart his home medications once they are verified in the computer. #[id number] [email or web address]
--- NOTE | 2019-06-02 16:01 | US ---
EXAM DESCRIPTION: Venous,Lower Extremity LT (accession [id number]), Venous,Lower Extremity RT (accession [id number]): Ultrasound. CLINICAL HISTORY: swelling, post op COMPARISON: None Available. TECHNIQUE: Two -dimensional and doppler sonographic evaluation of the deep venous system of the bilateral lower extremities. FINDINGS: Doppler evaluation shows normal color flow and normal phasicity and augmentation of the bilateral common femoral veins, junctions with the bilateral proximal saphenous veins, femoral veins, popliteal veins, greater saphenous vein junction with the common femoral veins, peroneal and posterior tibial veins. These veins showed normal occlusion with transducer pressure. Two-dimensional survey showed no echogenic clot within these veins. Bilateral atherosclerotic calcification in the adjacent arterial system bilaterally. IMPRESSION: Duplex ultrasound evaluation of the bilateral lower extremity deep venous systems showing no evidence of thrombosis. Atherosclerotic calcification in the adjacent arterial system bilaterally. Electronically signed by: Laith Fajardo MD 06/02/2019 3:59 PM TUNNEL MUCKER
--- NOTE | 2019-06-02 16:01 | US ---
EXAM DESCRIPTION: Venous,Lower Extremity LT (accession [id number]), Venous,Lower Extremity RT (accession [id number]): Ultrasound. CLINICAL HISTORY: swelling, post op COMPARISON: None Available. TECHNIQUE: Two -dimensional and doppler sonographic evaluation of the deep venous system of the bilateral lower extremities. FINDINGS: Doppler evaluation shows normal color flow and normal phasicity and augmentation of the bilateral common femoral veins, junctions with the bilateral proximal saphenous veins, femoral veins, popliteal veins, greater saphenous vein junction with the common femoral veins, peroneal and posterior tibial veins. These veins showed normal occlusion with transducer pressure. Two-dimensional survey showed no echogenic clot within these veins. Bilateral atherosclerotic calcification in the adjacent arterial system bilaterally. IMPRESSION: Duplex ultrasound evaluation of the bilateral lower extremity deep venous systems showing no evidence of thrombosis. Atherosclerotic calcification in the adjacent arterial system bilaterally. Electronically signed by: Laith Fajardo MD 06/02/2019 3:59 PM OIL PLANT OPERATOR
[2019-06-02] MEDS: IPRATROPIUM/ALBUTEROL 3 ML VIAL NEB SCH ×2 (16:35→20:37)
[2019-06-02] MEDS ORDERED: ACETAMINOPHEN W/ COD #4 TAB 1EA TAB PO PRN (17:02)
[2019-06-02] MEDS: levETIRAcetam 250 MG TAB PO SCH (20:27)
[2019-06-02] MEDS: DOCUSATE SODIUM 100 MG CAP PO SCH (20:27)
[2019-06-02] MEDS ORDERED: TAMSULOSIN 0.4 MG CAP PO SCH (21:00)
[2019-06-02] MEDS ORDERED: traMADol HCL 50 MG TAB ONE (23:49)
[2019-06-03] MEDS: IPRATROPIUM/ALBUTEROL 3 ML VIAL NEB SCH ×3 (00:15→08:30)
[2019-06-03] MEDS ORDERED: B COMPLEX 1 EA TAB ONE (07:44)
[2019-06-03] MEDS ORDERED: NIACIN 500 MG TAB ONE (07:44)
[2019-06-03] MEDS: levETIRAcetam 250 MG TAB PO SCH (08:38)
[2019-06-03] MEDS: DOCUSATE SODIUM 100 MG CAP PO SCH (08:38)
[2019-06-03] MEDS ORDERED: [UNRECOGNIZED DRUG - OTHER] PO SCH (09:00)
[2019-06-03] MEDS ORDERED: FOLIC ACI PO SCH (09:00)
[2019-06-03] MEDS ORDERED: [UNRECOGNIZED DRUG - OTHER] PO SCH (09:00)
[2019-06-03] MEDS ORDERED: MAGNESIUM PO SCH (09:00)
[2019-06-03] MEDS ORDERED: BIOTIN PO SCH (09:00)
[2019-06-03] MEDS ORDERED: B COMPLEX PO SCH (09:00)
[2019-06-03] MEDS ORDERED: NIACIN 500 MG PO SCH (09:00)
[2019-06-03] MEDS ORDERED: B COMPLEX 1 EA TAB PO SCH (09:00)
[2019-06-03] MEDS ORDERED: CALCIUM PO SCH (09:00)
[2019-06-03] MEDS ORDERED: FINASTERIDE 5 MG TAB PO SCH (09:00)
[2019-06-03] MEDS ORDERED: MULTIPLE VITAMINS W/ MINERALS 1 EA TAB PO SCH (09:00)
[2019-06-03 12:55] VITALS: BP 126/79; TEMP 97.2; O2SAT 97
--- NOTE | 2019-06-07 13:57 | DS ---
SUPERVISING PHYSICIAN: Kuldip Washington MD ADMISSION DIAGNOSIS: 1. Dyspnea likely secondary to emphysema which was newly found on a CT scan, although he has not been treated chronically for chronic obstructive pulmonary disease. 2. Possible congestive heart failure given the elevated BNP, although has no history of this either. 3. Recent left total knee arthroplasty. 4. History of coronary artery disease with no indication of acute complications. 5. 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 6. History of colon cancer status post resection in 2002. DISCHARGE DIAGNOSIS: 1. Acute exacerbation of congestive heart failure with a reduced ejection fraction with last echocardiogram on admission showing ejection fraction of 30% to 35%. 2. Dyspnea exacerbated by #1 and complicated by underlying emphysema as noted on CT scan at time of admission with the patient not having any history of chronic obstructive pulmonary disease with the patient showing good response to treatment and started on Anoro and awaiting followup with Pulmonology. 3. Possible congestive heart failure given the elevated BNP, although has no history of this either. 4. Recent left total knee arthroplasty. 5. History of coronary artery disease with no indication of acute complications. 6. 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 7. History of colon cancer status post resection in 2002. REASON FOR HOSPITALIZATION: This is an 84 year-old male patient who went to his primary care physician today. Over there he was noted to be quite tachypneic, although his lungs did not really sound that bad. No history of fever or chills. No cough. However, given the tachypnea and the fact the patient recently had a total knee arthroplasty, the patient was brought to the Emergency Room to evaluate for pulmonary embolism. In the Emergency Room, he did, in fact, have a CT angiogram which was negative for a pulmonary embolism. His labs showed an elevated BNP and the CT scan actually was indicative of right heart strain. Additionally, the CT showed that the patient had significant emphysema. He does have a distant history of smoking but quit in 1998. He has not had any difficulties with chronic obstructive pulmonary disease, although he has had some bouts with pneumonia and influenza. Given these findings he was referred for admission. At time of examination, the patient is alert and oriented. He is able to speak in complete sentences at this time. No distress, however I can see that he is a little bit tachypneic, at the origin not quite to the point that was described over at the doctor's office. LABORATORY: CBC showed white count 5,100, hemoglobin 13.4, hematocrit 40.7, RBC indices indicating a microcytic/hypochromic presentation with a platelet count of 213,000. Differential without a left shift. Chemistry showed normal electrolytes. BUN slightly low at 24, creatinine 1.1. Liver functions all within normal limits. Troponins all within normal limits with last one at discharge at 0.03. BNP elevated at 368. Urinalysis within normal limits. RADIOLOGY: CTA of the chest per radiologic interpretation noted no central or major vessel pulmonary embolism, but there was note of stable cardiomegaly with reflux of contrast into the IVC concerning for right heart strain. No acute consolidations. Note of stable appearing emphysemic changes. Please see that report for details. He had an echocardiogram that showed a systolic dysfunction with a reduced ejection fraction of 30% to 35% with moderate left atrial enlargement and mild mitral, tricuspid and aortic valve regurgitation. Please see that report for details. He had bilateral lower extremity Dopplers that were all negative. HOSPITAL COURSE: Mr. Gutierres was admitted and placed in observation for underlying treatment of what appeared to be an exacerbation of congestive heart failure and chronic obstructive pulmonary disease combined. He was treated with breathing treatments, but no Lasix as he did show good improvement with the initial treatment plan. He was ambulating without any difficulties, showing no need for oxygen on ambulation. It was felt he had improved well enough to followup as an outpatient and continue with outpatient management. PLAN: Mr. Gutierres is discharged to followup with Dr. Moran as well as pulmonology. I did discuss the findings of the echocardiogram and we will hold off on an additional medications until he can be seen in followup. The plan will be to followup with Dr. Moran and pulmonology. He is to resume his home medications as prior to hospitalization and was given warnings to return to the hospital if he had any worsening of his symptoms. Diet was to resume usual diet. Activity as per physical therapy, increase as tolerated. NEW MEDICATIONS PRESCRIBED AT DISCHARGE: 1. Proventil nebulizers 2.5 mg q.4h. as needed, #25, no refills. 2. Anoro Ellipta 62.5-25 mcg 1 inhaled daily, no refills. DISPOSITION: The patient is discharged home to care of family members. CONDITION ON DISCHARGE: Stable and improved. #[id number] MTDD
== END 2019-06-03 13:17 | disposition home or self-care (01) | DRG 293 ==
LOC: ER 11:07 → MS 14:18 → OBSVTOIN 14:18
PROVIDERS: ADMIT Nurse Practitioner; ATTEND Nurse Practitioner Family
PROC: B32T1ZZ Computerized Tomography (CT Scan) of Left Pulmonary Artery using Low Osmolar Contrast (ICD-10-PCS; principal; 2019-06-02)
PROC: B32S1ZZ Computerized Tomography (CT Scan) of Right Pulmonary Artery using Low Osmolar Contrast (ICD-10-PCS; 2019-06-02)
DX: I50.21 Acute systolic (congestive) heart failure (principal); J43.9 Emphysema, unspecified; I08.3 Combined rheumatic disorders of mitral, aortic and tricuspid valves; I25.10 Atherosclerotic heart disease of native coronary artery without angina pectoris; G40.909 Epilepsy, unspecified, not intractable, without status epilepticus; G47.33 Obstructive sleep apnea (adult) (pediatric); Z96.652 Presence of left artificial knee joint; Z85.038 Personal history of other malignant neoplasm of large intestine; Z90.49 Acquired absence of other specified parts of digestive tract; Z87.891 Personal history of nicotine dependence; Z87.11 Personal history of peptic ulcer disease; Z86.73 Personal history of transient ischemic attack (TIA), and cerebral infarction without residual deficits; Z79.899 Other long term (current) drug therapy

== ENCOUNTER → 2019-10-04 | Outpatient (CLI) | payer MEDICARE, OTHER | LOC: GMAE 11:10 | PROVIDERS: ATTEND Family Medicine | DX: Z12.5 Encounter for screening for malignant neoplasm of prostate (principal); I10 Essential (primary) hypertension; E78.2 Mixed hyperlipidemia | CPT/HCPCS: 84443; G0103 ==